=== PATIENT | female | born 1990 | race Hispanic/Latino ===

== ENCOUNTER 2020-02-19 06:37 | Emergency (ER) | payer OTHER, MEDICAID, SELFPAY ==
--- NOTE | ~2020-02-19 | XR_ITS ---
EXAMINATION: XR chest 1V portable DATE: 02/19/2020 07:47 INDICATION: Cough, dyspnea and headaches TECHNIQUE: frontal view of the chest was obtained. COMPARISON: Chest radiograph dated 12/06/2016 FINDINGS: The lungs remain clear with no focal airspace opacities, pulmonary edema, pleural effusion or pneumot horax. The cardiomediastinal silhouette is normal. Visualized bones and soft tissues are unremarkable . IMPRESSION: 1. Normal chest radiograph. Reviewed, dictated and finalized at location A. IMPRESSION: 1. Normal chest radiograph.
--- NOTE | 2020-02-19 06:40 | ED.GENADULT ---
HPI - General Adult General Chief complaint: Upper Respiratory Infection Stated complaint: SOB Time Seen by Provider: 02/19/20 06:40 Source: patient Mode of arrival: ambulatory Limitations: no limitations History of Present Illness HPI narrative: Patient is a 29-year-old female who presents for evaluation of shortness of breath. Patient reports a four-day history of worsening cough, congestion, shortness of breath fever and myalgias. Patient denies any diarrhea or urinary symptoms. No one sick at home. 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 No recent travel. No history of exposures to known coronavirus contacts. Patient reports mild sore throat. Denies earache. No chest pain. Related Data Allergies Allergy/AdvReac Type Severity Reaction Status Date / Time No Known Allergies Allergy Unverified 02/19/20 06:50 Review of Systems Review of Systems: Narrative: CONSTITUTIONAL: Reports fever and chills EYES: Denies visual changes, redness, or discharge. ENT: Reports rhinorrhea, congestion, sore throat CARDIOVASCULAR: Denies chest pain, palpitations, or edema. RESPIRATORY: Reports cough and shortness of breath GASTROINTESTINAL: Denies abdominal pain, nausea, vomiting, or diarrhea. GENITOURINARY: Denies dysuria or hematuria. SKIN: Denies rash or itching. MUSCULOSKELETAL: Denies back pain, joint pain, reports myalgias NEUROLOGIC: Denies headache, numbness, or weakness. [facility] History Surgical History (Updated 02/19/20 @ 08:34 by Beata Murphy MD) Previous section Social History Social History (Updated 02/19/20 @ 08:36 by Beata Murphy MD) Smoking status: Never smoker Alcohol intake: never Substance use: never Gender identity (if verbalized by the patient): Female Exam Narrative: Exam Narrative: GENERAL: Well-appearing, well-nourished, and in no acute distress. HEAD: Normocephalic, atraumatic. EYES: PERRLA and EOMI. ENT: Nares clear, no rhinorrhea or epistaxis. Mucous membranes moist. NECK: Supple. CHEST: No wheezing or rhonchi. No respiratory distress. HEART: Mildly tachycardic, regular rhythm. No murmur heard. Normal peripheral pulses. ABDOMEN: Soft, nontender, nondistended, normal active bowel sounds. EXTREMITIES: Normal range of motion. No edema. SKIN: Warm, dry, no rash. NEURO: No focal deficits. Alert and oriented x3 Course Course Emergency Course: Patient presented for evaluation of fever, cough shortness of breath. At the time of initial assessment, ABCs are intact, vital signs notable for mild tachycardia. No pleuritic chest pain. No respiratory distress. Oxygen saturation is 100%. Patient is afebrile. Chest x-ray shows no evidence of not pneumonia. Laboratory results show no lymphopenia. I do not feel that patient has any PE type symptoms. There is no evidence of fluid overloaded state, no leg pain, calf pain. Wells criteria low risk for PE. Patient mostly with cough and congestion, was mostly worried about bad virus, but given reassuring lab results and chest x-ray, no severe features at this point. I did advise patient that she should be soft quarantined for 14 days as long as she is febrile in order to prevent spread of this virus to other people. She was then discharged home and advised to return should she have worsening symptoms. Vital Signs Vital signs: Vital Signs Temperature 36.7 C 02/19/20 06:48 Pulse Rate 114 H 02/19/20 06:48 Respiratory Rate 21 H 02/19/20 06:48 Blood Pressure 143/75 H 02/19/20 06:48 Pulse Oximetry 100 02/19/20 06:48 Temperature 36.7 C 02/19/20 06:48 Pulse Rate 84 02/19/20 08:03 Respiratory Rate 17 02/19/20 08:03 Blood Pressure 132/67 02/19/20 08:03 Pulse Oximetry 100 02/19/20 08:03 Medical Decision Making Vital Signs Vital Signs: Vital Signs Temperature 36.7 C 02/19/20 06:48 Pulse Rate 114 H 02/19/20 06:48 Respiratory Rat
[2020-02-19 06:48] VITALS: BP 143/75; PULSE 114; RESP 21; TEMP 36.7; O2SAT 100
[2020-02-19 07:05] LABS: Basophils Percent Auto 0.4 % (0.2-1.2); Eosinophils Percent Auto 0.7 % (0-4.4); Hematocrit 39.3 % (37.0-47.0); Hemoglobin 12.9 g/dL (12.0-15.0); Immature Granulocyte Absolute 0.02 K/mm3 (0.00-0.031); Immature Granulocyte Percent A 0.4 % (0-0.5); Lymphocytes Absolute Auto 1.59 K/mm3 (0.9-3.2); Lymphocytes Percent Auto 29.3 % (18.3-44.2); Mean Corpuscular HGB Conc 32.8 g/dl (32-36); Mean Corpuscular Hemoglobin 29.8 pg (26-34); Mean Corpuscular Volume 90.8 fl (80-100); Mean Platelet Volume 10.4 fl (7.4-10.4); Monocytes Absolute Auto 0.4 K/mm3 (0.1-0.6); Neutrophils Absolute Auto 3.4 K/mm3 (1.3-6.7); Neutrophils Percent Auto 62.2 % (45.5-73.1); Platelet Count Result 315 k/mm3 (150-375); Red Blood Count 4.33 M/mm3 (4.2-5.4); White Blood Count 5.4 K/mm3 (4.5-10.0)
[2020-02-19 07:14] LABS: INR 0.9; Prothrombin Time 12.3 Seconds (11.1-14.7)
[2020-02-19 07:15] LABS: Partial Thromboplastin Time 30.2 SECONDS (22.3-36.8)
[2020-02-19 07:26] LABS: Alanine Aminotransferase 13 U/L (4-35); Albumin Level 4.2 g/dL (3.5-5.1); Alkaline Phosphatase 55 U/L (38-126); Aspartate Amino Transferase 19 U/L (14-36); Bilirubin,Total 0.4 mg/dL (0.2-1.3); Blood Urea Nitrogen 13 mg/dL (7-17); CRP < 0.5 mg/dL (<1.0); Calcium 8.9 mg/dL (8.4-10.2); Carbon Dioxide 24 mmol/L (22-30); Chloride 105 mmol/L (98-107); Estimated Glomerular Filt Rate > 60; Glucose 92 mg/dL (65-105); Potassium 3.5 mmol/L (3.4-5.0); Sodium 139 mmol/L (137-145)
[2020-02-19 07:27] LABS: Base Excess ABG 2.2 mEq/l (+/-2.0); Carboxyhemoglobin 0.5 % THb (0-2.0); Fractional Inspired Oxygen 21 %; HCO3 ABG 26.9 mEq/l (22.0-26.0); Methemoglobin ABG 0.2 %THb (0-1.5); Oxygen Content ABG 17.6 %vol (16.0-22.0); PCO2 ABG 42.2 mmHg (35.0-45.0); PO2 ABG 89.2 mmHg (80.0-100.0); PO2 FiO2 Ratio Arterial Blood 4.25 %; Reduced Hemoglobin 3.3 %THb (0-5.0); pH ABG 7.422 (7.350-7.450)
[2020-02-19 07:28] LABS: Device ROOM AIR; Site Drawn LEFT BRACHIAL
[2020-02-19 07:48] LABS: Troponin I < 0.012 ng/mL (0.000-0.034)
[2020-02-19] MEDS: ACETAMINOPHEN 500 MG TABLET 1000 MG PO (07:49)
[2020-02-19] MEDS: SODIUM CHLORIDE 0.9% IV 1,000 ML 999 ML IV CONT (07:50)
--- NOTE | 2020-02-19 08:02 | PC.NURSE ---
Assumed care of pt. Pt is alert and upright on stretcher.
[2020-02-19 08:03] VITALS: BP 132/67; PULSE 84; RESP 17; O2SAT 100
[2020-02-19 08:55] VITALS: BP 112/68; PULSE 82; RESP 19; O2SAT 100
== END 2020-02-19 08:56 | disposition home or self-care (01) ==
PROVIDERS: Emergency Provider Emergency Medicine
DX: J06.9 Acute upper respiratory infection, unspecified (principal)
CPT/HCPCS: 36415; 36600; 71045; 80053; 81025; 82375; 82805; 83050; 84484; 85025; 85610; 85730; 86140; 87081; 87804; 87880; 96360; 99284; A9270; J7030

== ENCOUNTER 2021-04-14 16:16 | Outpatient (CLI) | payer BC, OTHER, SELFPAY ==
[2021-04-14 17:19] LABS: Basophils Percent Auto 0.3 % (0.2-1.2); Eosinophils Percent Auto 0.3 % (0-4.4); Hematocrit 34.6 % (37.0-47.0); Hemoglobin 11.1 g/dL (12.0-15.0); Immature Granulocyte Absolute 0.02 K/mm3 (0.00-0.031); Immature Granulocyte Percent A 0.2 % (0-0.5); Lymphocytes Absolute Auto 2.43 K/mm3 (0.9-3.2); Lymphocytes Percent Auto 24.9 % (18.3-44.2); Mean Corpuscular HGB Conc 32.1 g/dl (32-36); Mean Corpuscular Hemoglobin 28.1 pg (26-34); Mean Corpuscular Volume 87.6 fl (80-100); Mean Platelet Volume 10.2 fl (7.4-10.4); Monocytes Absolute Auto 0.6 K/mm3 (0.1-0.6); Monocytes Percent Auto 6.1 % (2.6-8.5); Neutrophils Absolute Auto 6.7 K/mm3 (1.3-6.7); Neutrophils Percent Auto 68.2 % (45.5-73.1); Platelet Count Result 353 k/mm3 (150-375); Red Blood Count 3.95 M/mm3 (4.2-5.4); Red Cell Distribution Width 13.9 % (11.5-14.5); White Blood Count 9.8 K/mm3 (4.5-10.0)
[2021-04-14 18:09] LABS: HIV 1/2 Ab P24 Ag Result Negative (Negative)
[2021-04-14 18:33] LABS: Iron 26 ug/dL (37-170)
[2021-04-14 18:45] LABS: Percent Iron Saturation 6 % (20-50)
[2021-04-14 21:03] LABS: Hepatitis B Surface Antigen Negative (Negative)
[2021-04-14 21:09] LABS: HAV RESULT Negative (Negative); Hepatitis B Core IgM Result Negative (Negative)
[2021-04-14 21:21] LABS: Hepatitis C Virus Antibody Negative (Negative)
[2021-04-15 07:29] LABS: Rapid Plasma Reagin Non-Reactive (NonReactive)
[2021-04-17 08:55] LABS: FSH 8.1 mIU/mL (***); LH 7.5 mIU/mL (***); Progesterone 6.7 ng/mL (***); Prolactin 6.9 ng/mL (***)
[2021-04-19 17:41] LABS: Estradiol, Ultrasensitive 87 pg/mL
== END 2021-04-14 16:17 | disposition home or self-care (01) ==
LOC: ANHLAB 16:21
PROVIDERS: Visit Provider Obstetrics & Gynecology
DX: N93.9 Abnormal uterine and vaginal bleeding, unspecified (principal); Z11.3 Encounter for screening for infections with a predominantly sexual mode of transmission
CPT/HCPCS: 36415; 80074; 82670; 83001; 83002; 83540; 83550; 84144; 84146; 84443; 85025; 86592; 86695; 86696; 86703; G0432

== ENCOUNTER 2021-10-24 12:43 | Emergency (ER) | payer BC, OTHER, SELFPAY ==
[2021-10-24 12:48] VITALS: BP 125/71; PULSE 104; RESP 16; TEMP 36.7; O2SAT 100
--- NOTE | 2021-10-24 13:02 | ED.ABDPAIN ---
HPI - Abdominal Pain General Chief Complaint: Abdominal Pain Stated Complaint: abd pain Time Seen by Provider: 10/24/21 12:59 Source: patient Mode of arrival: ambulatory Limitations: no limitations History of Present Illness HPI narrative: Patient presents with lower abdominal pain radiating to lower back started 3 days ago, denying any aggravating or relieving factors. Patient denies fever, chills, nausea, vomiting. Patient is fully vaccinated for COVID-19. Last menstrual period September 15, 2021 patient is 3, para 2, 0 Related Data Allergies Allergy/AdvReac Type Severity Reaction Status Date / Time No Known Allergies Allergy Unverified 02/19/20 06:50 Review of Systems Review of Systems: CONSTITUTIONAL: Denies fever, chills, or sweats. EYES: Denies visual changes, redness, or discharge. ENT: Denies rhinorrhea, congestion, sore throat, or otalgia. CARDIOVASCULAR: Denies chest pain, palpitations, or edema. RESPIRATORY: Denies cough or dyspnea. GASTROINTESTINAL: Denies abdominal pain, nausea, vomiting, or diarrhea. GENITOURINARY: Denies dysuria or hematuria. SKIN: Denies rash or itching. MUSCULOSKELETAL: Denies back pain, joint pain, or myalgia. NEUROLOGIC: Denies headache, numbness, or weakness. PSYCHIATRIC: Denies anxiety or depression. [facility] Surgical History Surgical History Previous section Social History Social History Smoking status: Never smoker Alcohol intake: never Substance use: never Gender identity (if verbalized by the patient): Female Exam Narrative: General appearance: Well-developed, well-nourished Skin: Normal color Head: Normocephalic, nontraumatic Eyes: Clear conjunctiva ENT: Oropharynx normal, ears normal, nose normal Neck: Supple, nontender Chest and respiratory: Airway patent, no respiratory distress, no accessory muscle use Heart: Regular rate/rhythm Abdomen: Soft, slight tenderness suprapubic area, no organomegaly, quiet bowel sounds Vascular: Normal peripheral pulses, normal capillary refill. 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 Labs ordered. Differential Diagnosis Differential diagnosis: Likely abdominal pain, acute appendicitis, constipation, diverticulitis and other (Urinary tract infection, ) Lab Data Result diagrams: 10/24/21 13:14 10/24/21 13:13 Labs: Lab Results 10/24/21 10/24/21 10/24/21 Range/Units 13:13 13:13 13:14 WBC 8.2 (4.5-10.0) K/mm3 RBC 3.72 L (4.2-5.4) M/mm3 Hgb 10.6 L (12.0-15.0) g/dL Hct 32.4 L (37.0-47.0) % MCV 87.1 (80-100) fl MCH 28.5 (26-34) pg MCHC 32.7 (32-36) g/dl RDW 15.2 H (11.5-14.5) % Plt Count 383 H (150-375) k/mm3 MPV 10.1 (7.4-10.4) fl Immature Gran % (Auto) 0.2 (0-0.5) % Neut % (Auto) 61.4 (45.5-73.1) % Lymph % (Auto) 30.5 (18.3-44.2) % Alexander % (Auto) 7.2 (2.6-8.5) % Eos %
[2021-10-24] MEDS: SODIUM CHLORIDE 0.9% IV 1,000 ML 999 ML IV CONT (13:19)
[2021-10-24] MEDS: ONDANSETRON INJ 4 MG/2 ML VIAL IV PUSH (13:19)
[2021-10-24 13:28] LABS: Basophils Percent Auto 0.5 % (0.2-1.2); Eosinophils Percent Auto 0.2 % (0-4.4); Hematocrit 32.4 % (37.0-47.0); Hemoglobin 10.6 g/dL (12.0-15.0); Immature Granulocyte Absolute 0.02 K/mm3 (0.00-0.031); Immature Granulocyte Percent A 0.2 % (0-0.5); Lymphocytes Absolute Auto 2.49 K/mm3 (0.9-3.2); Lymphocytes Percent Auto 30.5 % (18.3-44.2); Mean Corpuscular HGB Conc 32.7 g/dl (32-36); Mean Corpuscular Hemoglobin 28.5 pg (26-34); Mean Corpuscular Volume 87.1 fl (80-100); Mean Platelet Volume 10.1 fl (7.4-10.4); Monocytes Absolute Auto 0.6 K/mm3 (0.1-0.6); Monocytes Percent Auto 7.2 % (2.6-8.5); Neutrophils Percent Auto 61.4 % (45.5-73.1); Platelet Count Result 383 k/mm3 (150-375); Red Blood Count 3.72 M/mm3 (4.2-5.4); Red Cell Distribution Width 15.2 % (11.5-14.5); White Blood Count 8.2 K/mm3 (4.5-10.0)
[2021-10-24 13:37] LABS: Alanine Aminotransferase 14 U/L (4-35); Albumin Level 4.1 g/dL (3.5-5.1); Alkaline Phosphatase 60 U/L (38-126); Anion Gap 4 mmol/L (8-16); Aspartate Amino Transferase 19 U/L (14-36); Bilirubin,Total 0.2 mg/dL (0.2-1.3); Blood Urea Nitrogen 11 mg/dL (7-17); Calcium 9.1 mg/dL (8.4-10.2); Carbon Dioxide 27 mmol/L (22-30); Chloride 103 mmol/L (98-107); Estimated CRCL calculation 92 ml/min; Estimated Glomerular Filt Rate > 60; Glucose 113 mg/dL (65-110); Lipase 95 U/L (23-300); Potassium 3.2 mmol/L (3.4-5.0); Sodium 134 mmol/L (137-145)
[2021-10-24 13:38] LABS: Add Urine Microscopic? YES; Appearance Urine Cloudy (Clear); Bilirubin Urine Negative (Negative); Blood Urine 1+ (Negative); Color Urine Yellow (Yellow); Glucose Urine UA Negative (Negative); Ketones Urine Negative (Negative); Leukocyte Esterase Ur Negative LEU/UL (Negative); Mucus Urine Few /lpf; Nitrate Urine Negative (Negative); Protein Urine Negative (Negative); RBC Urine 0-2 /hpf (0-2); Specific Grav Ur 1.027 (1.001-1.035); Squamous Epithelial Cell Urine Many /hpf (Few); Urobilinogen Urine Negative mg/dL (<2.0); WBC Urine 0-3 /hpf
[2021-10-24 14:35] VITALS: BP 125/81; PULSE 96; RESP 15; O2SAT 100
[2021-10-24 14:41] LABS: Serum Qual hCG Positive
[2021-10-24 14:42] LABS: SPREG INTERNAL CONTROL Positive
== END 2021-10-24 14:43 | disposition home or self-care (01) ==
PROVIDERS: Emergency Provider Emergency Medicine
DX: O26.891 Other specified pregnancy related conditions, first trimester (principal); R10.30 Lower abdominal pain, unspecified; O99.281 Endocrine, nutritional and metabolic diseases complicating pregnancy, first trimester; E87.6 Hypokalemia; Z3A.01 Less than 8 weeks gestation of pregnancy
CPT/HCPCS: 36415; 80053; 81001; 81025; 83690; 84703; 85025; 96361; 96365; 96375; 99284; J0131; J2405; J7030

== ENCOUNTER 2022-01-05 07:20 | Emergency (ER) | payer BC, OTHER, SELFPAY ==
--- NOTE | 2022-01-05 07:28 | ED.ABDPAIN ---
HPI - Abdominal Pain General Chief Complaint: Abdominal Pain Stated Complaint: abdominal pain, 16 weeks Time Seen by Provider: 01/05/22 07:27 Source: patient Mode of arrival: ambulatory Limitations: no limitations History of Present Illness HPI narrative: Patient is a 31 years old white female, 16 weeks , 4, para 2, 1 presents with mid abdominal pressure type feeling, worse on exertion, better laying down still. Patient denies any fever, chills, nausea, vomiting, diarrhea, constipation, urinary symptoms. Patient denies history of abdominal surgery, smoking, drinking or using drugs. Last [employer] exam was 1 month ago. Patient also denies any vaginal bleeding or discharge. Related Data Home Medications Medication Instructions Recorded Confirmed doxylamine succinate 25 mg tablet 25 mg PO QHS 12/15/21 12/15/21 ondansetron 4 mg disintegrating 4 mg PO Q6H PRN 12/15/21 12/15/21 tablet ondansetron HCl 4 mg tablet 4 mg PO Q8H 12/15/21 12/15/21 pyridoxine (vitamin B6) 25 mg 25 mg PO TID tablet 12/15/21 12/15/21 tablet Allergies Allergy/AdvReac Type Severity Reaction Status Date / Time No Known Allergies Allergy Verified 01/05/22 07:50 Review of Systems Review of Systems: CONSTITUTIONAL: Denies fever, chills, or sweats. EYES: Denies visual changes, redness, or discharge. ENT: Denies rhinorrhea, congestion, sore throat, or otalgia. CARDIOVASCULAR: Denies chest pain, palpitations, or edema. RESPIRATORY: Denies cough or dyspnea. GASTROINTESTINAL: Denies abdominal pain, nausea, vomiting, or diarrhea. GENITOURINARY: Denies dysuria or hematuria. SKIN: Denies rash or itching. MUSCULOSKELETAL: Denies back pain, joint pain, or myalgia. NEUROLOGIC: Denies headache, numbness, or weakness. PSYCHIATRIC: Denies anxiety or depression. [facility] Surgical History Surgical History Previous section Social History Social History Smoking status: Never smoker Alcohol intake: never Substance use: never Gender identity (if verbalized by the patient): Female Exam Narrative: General appearance: Well-developed, well-nourished Skin: Normal color Head: Normocephalic, nontraumatic Eyes: Clear conjunctiva ENT: Oropharynx normal, ears normal, nose normal Neck: Supple, nontender Chest and respiratory: Airway patent, no respiratory distress, no accessory muscle use Heart: Regular rate/rhythm Abdomen: Soft, diffuse abdominal tenderness, quiet bowel sounds, no guarding or rebound Vascular: Normal peripheral pulses, normal capillary refill. 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 Lala Ravi for 3 days Date: 01/05/22 Time: 09:56 Vital Signs Vital signs: Vital Signs Temperature 36.2 C L 01/05/22 07:32 Pulse Rate 83 01/05/22 07:32 Respiratory Rate 16 01/05/22 07:32 Blood Pressure 121/53 L 01/05/22 07:32 Pulse Oximetry 100 01/05/22 07:32 Temperature 36.2 C L 01/05/22 07:32 Pulse Rate 83 01/05/22 07:32 Respiratory Rate 16 01/05/22 07:32 Blood Pressure 121/53 L 01/05/22 07:32 Pulse Oximetry 100 01/05/22 07:32 MDM - Abdominal Pain MDM Narrative Medical decision making narrative: Abdominal pain with .
[2022-01-05 07:32] VITALS: BP 121/53; PULSE 83; RESP 16; TEMP 36.2; O2SAT 100
[2022-01-05 07:51] LABS: Basophils Percent Auto 0.1 % (0.2-1.2); Eosinophils Percent Auto 0.1 % (0-4.4); Hematocrit 34.4 % (37.0-47.0); Hemoglobin 11.5 g/dL (12.0-15.0); Immature Granulocyte Absolute 0.03 K/mm3 (0.00-0.031); Immature Granulocyte Percent A 0.3 % (0-0.5); Lymphocytes Absolute Auto 1.67 K/mm3 (0.9-3.2); Lymphocytes Percent Auto 19.2 % (18.3-44.2); Mean Corpuscular HGB Conc 33.4 g/dl (32-36); Mean Corpuscular Hemoglobin 28.6 pg (26-34); Mean Corpuscular Volume 85.6 fl (80-100); Mean Platelet Volume 10.6 fl (7.4-10.4); Monocytes Absolute Auto 0.4 K/mm3 (0.1-0.6); Monocytes Percent Auto 5.1 % (2.6-8.5); Neutrophils Absolute Auto 6.5 K/mm3 (1.3-6.7); Neutrophils Percent Auto 75.2 % (45.5-73.1); Platelet Count Result 332 k/mm3 (150-375); Red Blood Count 4.02 M/mm3 (4.2-5.4); Red Cell Distribution Width 15.9 % (11.5-14.5); White Blood Count 8.7 K/mm3 (4.5-10.0)
[2022-01-05 07:57] LABS: Add Urine Microscopic? YES; Appearance Urine Clear (Clear); Bacteria Urine Trace /hpf; Bilirubin Urine Negative (Negative); Blood Urine Negative (Negative); Color Urine Yellow (Yellow); Glucose Urine UA Negative (Negative); Ketones Urine Trace mg/dL (Negative); Leukocyte Esterase Ur Negative LEU/UL (Negative); Mucus Urine Rare /lpf; Nitrate Urine Negative (Negative); Protein Urine Negative (Negative); RBC Urine 0-2 /hpf (0-2); Specific Grav Ur 1.019 (1.001-1.035); Squamous Epithelial Cell Urine Occasional /hpf (Few); Urobilinogen Urine Negative mg/dL (<2.0); WBC Urine 0-3 /hpf
[2022-01-05 08:01] LABS: Alanine Aminotransferase 11 U/L (4-35); Alkaline Phosphatase 78 U/L (38-126); Anion Gap 5 mmol/L (8-16); Aspartate Amino Transferase 20 U/L (14-36); Bilirubin,Total 0.3 mg/dL (0.2-1.3); Blood Urea Nitrogen 7 mg/dL (7-17); Calcium 9.2 mg/dL (8.4-10.2); Carbon Dioxide 22 mmol/L (22-30); Chloride 105 mmol/L (98-107); Estimated CRCL calculation 126 ml/min; Estimated Glomerular Filt Rate > 60; Glucose 110 mg/dL (65-110); Lipase 68 U/L (23-300); Potassium 3.6 mmol/L (3.4-5.0); Sodium 132 mmol/L (137-145)
[2022-01-05] MEDS: BELLADONNA ALK/PHENOB ELIX 10 ML, MAG HYDROX/ALUMINUM HYD/SIMETH 30 ML, LIDOCAINE HCL 2... PO (09:32)
[2022-01-05 10:30] VITALS: BP 105/62; PULSE 85; RESP 16; O2SAT 100
== END 2022-01-05 10:30 | disposition home or self-care (01) ==
PROVIDERS: Emergency Provider Emergency Medicine
DX: N89.8 Other specified noninflammatory disorders of vagina (principal); O26.92 Pregnancy related conditions, unspecified, second trimester; Z3A.16 16 weeks gestation of pregnancy
CPT/HCPCS: 36415; 80053; 81001; 83690; 85025; 99284; A9270

== ENCOUNTER 2022-02-05 11:14 | Outpatient (CLI) | payer BC, OTHER, SELFPAY ==
[2022-02-05 12:42] LABS: Alanine Aminotransferase 13 U/L (4-35); Albumin Level 3.4 g/dL (3.5-5.1); Alkaline Phosphatase 74 U/L (38-126); Anion Gap 7 mmol/L (8-16); Aspartate Amino Transferase 19 U/L (14-36); Bilirubin,Total 0.2 mg/dL (0.2-1.3); Blood Urea Nitrogen 5 mg/dL (7-17); Calcium 8.6 mg/dL (8.4-10.2); Carbon Dioxide 22 mmol/L (22-30); Chloride 105 mmol/L (98-107); Estimated Glomerular Filt Rate > 60; Glucose 123 mg/dL (65-110); Lipase 59 U/L (23-300); Potassium 3.4 mmol/L (3.4-5.0); Sodium 134 mmol/L (137-145)
[2022-02-05 13:24] LABS: HIV 1/2 Ab P24 Ag Result Negative (Negative)
[2022-02-05 13:36] LABS: Hepatitis B Surface Antigen Negative (Negative)
[2022-02-07 07:40] LABS: Rapid Plasma Reagin Non-Reactive (NonReactive)
[2022-02-07 11:15] LABS: Rubella IgG Antibody 10.1 IU/ML
== END 2022-02-05 11:15 | disposition home or self-care (01) ==
PROVIDERS: Visit Provider Obstetrics & Gynecology
DX: O26.899 Other specified pregnancy related conditions, unspecified trimester (principal); R10.9 Unspecified abdominal pain; Z3A.00 Weeks of gestation of pregnancy not specified; N92.5 Other specified irregular menstruation; Z11.3 Encounter for screening for infections with a predominantly sexual mode of transmission
CPT/HCPCS: 36415; 80053; 83690; 84702; 86592; 86644; 86703; 86747; 86762; 86787; 86850; 86880; 86900; 86901; 86902; 87086; 87340; G0432

== ENCOUNTER 2022-02-07 16:00 | Outpatient (CLI) | payer BC, OTHER, SELFPAY ==
[2022-02-07 16:17] LABS: Hematocrit 31.8 % (37.0-47.0); Hemoglobin 10.4 g/dL (12.0-15.0); Mean Corpuscular HGB Conc 32.7 g/dl (32-36); Mean Corpuscular Volume 91.6 fl (80-100); Mean Platelet Volume 10.1 fl (7.4-10.4); Platelet Count Result 351 k/mm3 (150-375); Red Blood Count 3.47 M/mm3 (4.2-5.4); Red Cell Distribution Width 17.4 % (11.5-14.5); White Blood Count 8.3 K/mm3 (4.5-10.0)
== END 2022-02-07 16:01 | disposition home or self-care (01) ==
LOC: ANHLAB 16:03
PROVIDERS: Visit Provider Obstetrics & Gynecology
DX: Z11.3 Encounter for screening for infections with a predominantly sexual mode of transmission (principal); N92.5 Other specified irregular menstruation
CPT/HCPCS: 36415; 85027; 87491; 87591

== ENCOUNTER 2022-02-11 08:38 | Outpatient (CLI) | payer BC, OTHER, SELFPAY ==
[2022-02-11 10:06] LABS: Hemoglobin A1C 4.9 % (<5.7)
== END 2022-02-11 08:39 | disposition home or self-care (01) ==
LOC: ANHLAB 08:40
PROVIDERS: Visit Provider Obstetrics & Gynecology
DX: R73.09 Other abnormal glucose (principal); R76.0 Raised antibody titer
CPT/HCPCS: 36415; 83036; 86850; 86870; 86880; 86886; 86900; 86901; 86902; 86905; 86972

== ENCOUNTER 2022-03-12 11:29 | Outpatient (CLI) | payer BC, OTHER, SELFPAY | END 2022-03-12 11:30 | disposition home or self-care (01) | LOC: ANHLAB 11:30 | PROVIDERS: Visit Provider Obstetrics & Gynecology | DX: R89.9 Unspecified abnormal finding in specimens from other organs, systems and tissues (principal) | CPT/HCPCS: 36415; 86850; 86870; 86880; 86886; 86900; 86901; 86902; 86905; 86970; 86971 ==

== ENCOUNTER 2022-03-28 17:56 | Observation (INO) | payer OTHER, SELFPAY ==
[2022-03-28] VITALS (11 sets, daily range): BP systolic 107–111; BP diastolic 59; PULSE 109–128; TEMP 36; O2SAT 97–100; BMI 31.1
[2022-03-28 19:32] LABS: Alanine Aminotransferase 18 U/L (4-35); Alkaline Phosphatase 109 U/L (38-126); Anion Gap 7 mmol/L (8-16); Aspartate Amino Transferase 22 U/L (14-36); Bilirubin,Total < 0.1 mg/dL (0.2-1.3); Blood Urea Nitrogen 3 mg/dL (7-17); Calcium 7.6 mg/dL (8.4-10.2); Carbon Dioxide 20 mmol/L (22-30); Chloride 104 mmol/L (98-107); Estimated Glomerular Filt Rate > 60; Glucose 110 mg/dL (65-110); Potassium 2.9 mmol/L (3.4-5.0); Sodium 131 mmol/L (137-145)
[2022-03-28] MEDS: FAMOTIDINE 20 MG/2 ML VIAL IV PUSH (19:38)
[2022-03-28] MEDS: LACTATED RINGERS 1,000 ML 999 ML IV CONT (19:38)
[2022-03-28] MEDS: ONDANSETRON INJ 4 MG/2 ML VIAL IV PUSH (19:38)
[2022-03-28 19:51] LABS: Appearance Urine Cloudy (Clear); Bilirubin Urine Negative (Negative); Blood Urine Negative (Negative); Color Urine Yellow (Yellow); Glucose Urine UA Negative (Negative); Ketones Urine 4+ mg/dL (Negative); Leukocyte Esterase Ur Negative LEU/UL (Negative); Nitrate Urine Negative (Negative); Protein Urine Negative (Negative); Specific Grav Ur >= 1.030 (1.001-1.035); Urobilinogen Urine 0.2 mg/dL (<2.0); pH Urine 5.5 (5.0-9.0)
[2022-03-28 20:06] LABS: Bacteria Urine Trace /hpf; Mucus Urine Few /lpf; Squamous Epithelial Cell Urine Moderate /hpf (Few)
[2022-03-28 20:11] LABS: Add Urine Microscopic? YES
[2022-03-28] MEDS: ACETAMINOPHEN 500 MG TABLET 1000 MG PO (20:32)
[2022-03-28] MEDS: KCL 40 MEQ/0.9% SOD CHL 1,000 ML 250 ML IV CONT (21:30)
[2022-03-28 21:44] LABS: Influenza A QL RT-PCR Negative (Negative); Influenza B QL RT-PCR Negative (Negative); SARS-CoV-2 RNA PCR Negative
[2022-03-29 02:02] VITALS: BP 98/73; PULSE 121
--- NOTE | 2022-03-29 02:05 | PC.NURSE ---
Patient states that she has had at least stools in the last hour. Discussed staying until morning, patient agreeable.
[2022-03-29] MEDS: DEXTROSE 5%/LACTATED RINGERS 1,000 ML 150 ML IV CONT ×2 (02:13→09:42)
--- NOTE | 2022-03-29 03:37 | PC.NURSE ---
Dr Palma notified that patient is still having loose stools and still having pain. Will see patient in AM.
[2022-03-29] MEDS: ACETAMINOPHEN 500 MG TABLET 1000 MG PO ×2 (04:18→11:59)
[2022-03-29 06:37] VITALS: BP 93/48; PULSE 96
--- NOTE | 2022-03-29 06:46 | WPDHPUPDATE1 ---
History and Physical Update Update Date/Time: 03/29/22 06:46 31yo @ 27.1wks admitted overnight w/ dehydration and diarrhea; now s/p pepcid, zofran, and IV fluid hydration (+ 40meq of KCl) and feeling better. Flu/COVID negative; plan to advance diet and discharge home. History and Physical has been reviewed, including an updated exam of the patient. There are NO changes in the patient's condition. Risks, benefits, and alternatives have been discussed and questions answered. Patient agrees to proceed with procedure.
--- NOTE | 2022-03-29 07:13 | PC.NURSE ---
0705--Dr. Palma at bedside. Plan of care discussed.
[2022-03-29] MEDS: FAMOTIDINE 20 MG/2 ML VIAL IV PUSH (07:32)
[2022-03-29] MEDS: ONDANSETRON INJ 4 MG/2 ML VIAL IV PUSH (07:32)
--- NOTE | 2022-03-29 12:35 | PC.NURSE ---
1225--Dr. Palma on unit. DC orders given. IV DC'd WNL.
--- NOTE | 2022-03-31 13:48 | PM.OBTRLD ---
OB - Triage/Final Diagnosis Visit Information Comments/Additional reasons for admission: I have assessed the risk for this patient, Nikki Schuster, and determined that she would benefit from observation care. Evaluation Laboratory results: Laboratory Tests 03/28/22 03/28/22 03/28/22 19:02 19:43 20:58 Sodium 131 L Potassium 2.9 L Chloride 104 Carbon Dioxide 20 L Anion Gap 7 L BUN 3 L Creatinine 0.50 L Estim Creat Clear Calc Not Reportable Estimated GFR > 60 Glucose 110 Calcium 7.6 L Total Bilirubin < 0.1 L AST 22 ALT 18 Alkaline Phosphatase 109 Total Protein 6.0 L Albumin 3.0 L Urine Color Yellow Urine Appearance Cloudy H Urine pH 5.5 Ur Specific [place] >= 1.030 Urine Protein Negative Urine Glucose (UA) Negative Urine Ketones 4+ H Ur Blood (Man) Negative Urine Nitrate Negative Urine Bilirubin Negative Urine Urobilinogen 0.2 Leukocyte Esterase Rfl Negative Urine RBC 3-5 H Urine WBC 7-9 H Ur Squamous Epith Cells Moderate H Urine Bacteria Trace Urine Mucus Few H Influenza A (RT-PCR) Negative Influenza B (RT-PCR) Negative SARS-CoV-2 RNA (RT-PCR) Negative 03/28/22 20:58 Sodium Potassium Chloride Carbon Dioxide Anion Gap BUN Creatinine Estim Creat Clear Calc Estimated GFR Glucose Calcium Total Bilirubin AST ALT Alkaline Phosphatase Total Protein Albumin Urine Color Urine Appearance Urine pH Ur Specific [place] Urine Protein Urine Glucose (UA) Urine Ketones Ur Blood (Man) Urine Nitrate Urine Bilirubin Urine Urobilinogen Leukocyte Esterase Rfl Urine RBC Urine WBC Ur Squamous Epith Cells Urine Bacteria Urine Mucus Influenza A (RT-PCR) Cancelled Influenza B (RT-PCR) Cancelled SARS-CoV-2 RNA (RT-PCR) Final Diagnosis (1) Gastroenteritis: Code(s): K52.9 - Noninfective gastroenteritis and colitis, unspecified Status: Acute
== END 2022-03-29 12:50 | disposition home or self-care (01) ==
PROVIDERS: Admitting Provider Obstetrics & Gynecology; Visit Provider Obstetrics & Gynecology
DX: O26.892 Other specified pregnancy related conditions, second trimester (principal); E86.0 Dehydration; Z3A.27 27 weeks gestation of pregnancy; R19.7 Diarrhea, unspecified; Z20.822 Contact with and (suspected) exposure to COVID-19
CPT/HCPCS: 36415; 80053; 81001; 87045; 87086; 87427; 87502; 96361; 96374; 96375; A9270; C9803; G0378; G0379; J2405; J7120; J7121; U0003; U0005

== ENCOUNTER 2022-04-02 11:22 | Outpatient (CLI) | payer BC, OTHER, SELFPAY ==
[2022-04-02 13:16] LABS: Basophils Percent Auto 0.4 % (0.2-1.2); Eosinophils Percent Auto 0.1 % (0-4.4); Hematocrit 31.4 % (37.0-47.0); Immature Granulocyte Absolute 0.04 K/mm3 (0.00-0.031); Immature Granulocyte Percent A 0.6 % (0-0.5); Lymphocytes Absolute Auto 1.11 K/mm3 (0.9-3.2); Lymphocytes Percent Auto 15.3 % (18.3-44.2); Mean Corpuscular HGB Conc 31.8 g/dl (32-36); Mean Corpuscular Volume 94.3 fl (80-100); Monocytes Absolute Auto 0.2 K/mm3 (0.1-0.6); Neutrophils Absolute Auto 5.8 K/mm3 (1.3-6.7); Neutrophils Percent Auto 80.6 % (45.5-73.1); Platelet Count Result 317 k/mm3 (150-375); Red Blood Count 3.33 M/mm3 (4.2-5.4); Red Cell Distribution Width 14.7 % (11.5-14.5); White Blood Count 7.3 K/mm3 (4.5-10.0)
[2022-04-02 13:29] LABS: Glucose 1 Hour PP 50gm Dose 147 mg/dL
[2022-04-02 14:08] LABS: HIV 1/2 Ab P24 Ag Result Negative (Negative)
[2022-04-02 14:31] LABS: Atypical Lymphocytes Present; Platelet Estimate Adequate (Adequate)
== END 2022-04-02 11:23 | disposition home or self-care (01) ==
LOC: ANHLAB 11:25
PROVIDERS: Visit Provider Obstetrics & Gynecology
DX: Z34.90 Encounter for supervision of normal pregnancy, unspecified, unspecified trimester (principal)
CPT/HCPCS: 36415; 82947; 85025; 86703; G0432

== ENCOUNTER 2022-04-08 07:38 | Outpatient (CLI) | payer BC, OTHER, SELFPAY ==
[2022-04-08 08:04] LABS: Glucose Fasting Gestational 85 mg/dL (>/=95)
[2022-04-08 09:37] LABS: Glucose 1 Hour Gest 122 mg/dL (>/=180)
[2022-04-08 10:29] LABS: Glucose 2 Hour Gest 140 mg/dL (>/= 155)
[2022-04-08 11:51] LABS: Glucose 3 Hour Gest 115 mg/dL (>/=140)
== END 2022-04-08 07:39 | disposition home or self-care (01) ==
LOC: ANHLAB 07:39
PROVIDERS: Visit Provider Obstetrics & Gynecology
DX: O36.0930 Maternal care for other rhesus isoimmunization, third trimester, not applicable or unspecified (principal); R73.09 Other abnormal glucose; Z3A.00 Weeks of gestation of pregnancy not specified
CPT/HCPCS: 36415; 82951; 82952; 86850; 86870; 86880; 86886; 86900; 86901; 86902

== ENCOUNTER 2022-05-16 09:02 | Outpatient (CLI) | payer BC, OTHER, SELFPAY ==
[2022-05-16 09:32] VITALS: BP 109/60; PULSE 89
[2022-05-16 09:42] LABS: Appearance Urine Clear (Clear); Bilirubin Urine Negative (Negative); Color Urine Yellow (Yellow); Glucose Urine UA Negative (Negative); Ketones Urine Negative (Negative); Leukocyte Esterase Ur Negative LEU/UL (Negative); Nitrate Urine Negative (Negative); Protein Urine Negative (Negative); Specific Grav Ur 1.015 (1.001-1.035); Urobilinogen Urine 0.2 mg/dL (<2.0)
[2022-05-16 09:45] LABS: Bacteria Urine Trace /hpf; Mucus Urine Rare /lpf; RBC Urine 0-2 /hpf (0-2); Squamous Epithelial Cell Urine Rare /hpf (Few); WBC Urine 0-3 /hpf
[2022-05-16 09:46] LABS: Add Urine Microscopic? YES; Blood Urine Trace-Intact (Negative)
[2022-05-16 10:05] VITALS: BP 109/60; PULSE 91
== END 2022-05-16 10:10 | disposition home or self-care (01) ==
LOC: ANHOBOP 09:10 → ANHOBPP 09:10
PROVIDERS: Visit Provider Obstetrics & Gynecology
DX: O42.90 Premature rupture of membranes, unspecified as to length of time between rupture and onset of labor, unspecified weeks of gestation (principal); Z3A.00 Weeks of gestation of pregnancy not specified
CPT/HCPCS: 59025; 81001; 84112; 99199

== ENCOUNTER 2022-05-23 14:44 | Outpatient (RCR) | payer BC, OTHER, SELFPAY | END 2022-08-21 23:59 | disposition home or self-care (01) | LOC: ANHLAB 14:44 | PROVIDERS: Visit Provider Obstetrics & Gynecology | DX: O36.0930 Maternal care for other rhesus isoimmunization, third trimester, not applicable or unspecified (principal); Z3A.00 Weeks of gestation of pregnancy not specified | CPT/HCPCS: 36415; 86870; 86886; 86900; 86901 ==

== ENCOUNTER 2022-06-15 15:36 | Inpatient (IN) | payer BC, OTHER, SELFPAY ==
[2022-06-15] VITALS (64 sets, daily range): BP systolic 62–126; BP diastolic 40–88; PULSE 38–124; RESP 14–18; TEMP 36.2–36.3; O2SAT 90–100; BMI 32.2
--- NOTE | 2022-06-15 15:36 | LDADM ---
This patient, Nikki Schuster, was admitted to Labor/Delivery/Recovery 120 on 06/15/22 at 15:36. Plans for labor, pain management and were discussed with patient. Patient/family oriented to hospital policies and general routines including ID bracelet, bed and alarms, visiting hours, pain management, procedures, bathroom and other care routines, personal items, smoking policy, room service/diet and guest tray routines, infant security routines, and visiting hours. Patient/Family are encouraged to report perceived risks to care and to ask questions if they do not understand what they are told or what they should do. See [facility]BI[facility] for further documentation.
[2022-06-15] MEDS: LACTATED RINGERS 1,000 ML 125 ML IV CONT ×3 (16:54→18:24)
[2022-06-15 17:03] LABS: Basophils Percent Auto 0.2 % (0.2-1.2); Eosinophils Percent Auto 0.1 % (0-4.4); Immature Granulocyte Absolute 0.09 K/mm3 (0.00-0.031); Immature Granulocyte Percent A 0.8 % (0-0.5); Lymphocytes Absolute Auto 1.42 K/mm3 (0.9-3.2); Lymphocytes Percent Auto 12.8 % (18.3-44.2); Mean Corpuscular HGB Conc 32.4 g/dl (32-36); Mean Corpuscular Hemoglobin 28.9 pg (26-34); Mean Corpuscular Volume 89.2 fl (80-100); Mean Platelet Volume 10.2 fl (7.4-10.4); Monocytes Absolute Auto 0.5 K/mm3 (0.1-0.6); Monocytes Percent Auto 4.3 % (2.6-8.5); Neutrophils Absolute Auto 9.1 K/mm3 (1.3-6.7); Neutrophils Percent Auto 81.8 % (45.5-73.1); Platelet Count Result 375 k/mm3 (150-375); Red Blood Count 3.81 M/mm3 (4.2-5.4); White Blood Count 11.1 K/mm3 (4.5-10.0)
--- NOTE | 2022-06-15 18:03 | WPDANESEPPF ---
Anes - Initial Pre Proc Eval Procedure: Operation Date: 06/17/22 07:30 Proposed Procedures p Repeat Section with Bilateral Tubal Ligation - Beronica Palma MD Date/Time: 06/15/22 18:03 Surgeon: Beronica Palma MD Pre Op Diagnosis: Patient Data Age: 31 Gender: F Height: 1.57 m Weight: 80 kg Last Vital Signs Temp 36.2 C L 06/15/22 17:07 Pulse 94 06/15/22 18:01 BP 109/65 06/15/22 18:01 Pulse Ox 100 06/15/22 18:02 Allergies Allergy/AdvReac Type Severity Reaction Status Date / Time No Known Allergies Allergy Verified 01/12/22 17:51 Home Medications Medication Instructions Recorded Confirmed Type prenat.vits,karlie,[id number] 1 tablet PO HS 05/26/22 06/01/22 History cephalexin 500 mg capsule 500 mg PO Q8H #30 caps 06/05/22 06/15/22 Rx hydrocortisone acetate 25 mg 25 mg RECTAL DAILY #12 ea 06/07/22 06/15/22 Rx rectal suppository (Anusol-HC) Laboratory Tests 06/15/22 06/15/22 16:57 16:57 WBC 11.1 K/mm3 H K/mm3 (4.5-10.0) RBC 3.81 M/mm3 L M/mm3 (4.2-5.4) Hgb 11.0 g/dL L g/dL (12.0-15.0) Hct 34.0 % L % (37.0-47.0) MCV 89.2 fl fl (80-100) MCH 28.9 pg pg (26-34) MCHC 32.4 g/dl g/dl (32-36) RDW 14.0 % % (11.5-14.5) Plt Count 375 k/mm3 k/mm3 (150-375) MPV 10.2 fl fl (7.4-10.4) Immature Gran % (Auto) 0.8 % H % (0-0.5) Neut % (Auto) 81.8 % H % (45.5-73.1) Lymph % (Auto) 12.8 % L % (18.3-44.2) [place] % (Auto) 4.3 % % (2.6-8.5) Eos % (Auto) 0.1 % % (0-4.4) Baso % (Auto) 0.2 % % (0.2-1.2) Lymph # (Auto) 1.42 K/mm3 K/mm3 (0.9-3.2) [place] # (Auto) 0.5 K/mm3 K/mm3 (0.1-0.6) Eos # (Auto) 0.0 K/mm3 K/mm3 (0-0.3) Baso # (Auto) 0.0 K/mm3 K/mm3 (0.0-0.1) Abs Immat Gran (auto) 0.09 K/mm3 H K/mm3 (0.00-0.031) Absolute Neuts (auto) 9.1 K/mm3 H K/mm3 (1.3-6.7) Absolute Nucleated RBC 0.0 K/mm3 K/mm3 (0.0-0.012) Nucleated RBC % 0.0 % % (0.0-0.2) RPR Pending Patient hx anesthesia problems: none Family hx anesthesia problems: none Results Review: All pre-operative results and documents have been reviewed as part of the pre-operative evaluation. [facility] Surgical History Surgical History Previous section Family History Family History (Updated 05/26/22 @ 12:51 by Elaine Ambriz RN) Other Unknown family medical history Social History Social History Smoking status: Never smoker Alcohol intake: never Substance use: never Gender identity (if verbalized by the patient): Female Spiritual care concerns: No Anes - Eval Final PreProcedure Day of Procedure 06/15/22 18:03 Patient weight: obese Heart: regular rate and rhythm Lungs: clear to auscultation and normal air movement Airway: Mallampati scale class II Neurological: alert and oriented Last oral intake: >/= 8 hours ASA classification: II Emergent: no Anesthetic plan: proceed Anesthesia type and monitoring: regional epidural and standard monitoring Other findings: patient uncomfortable - start time not for 1 hour, epidural placed Results Review: All pre-operative results and documents have been reviewed as part of the pre-operative evaluation. Informed Consent: The patient's anesthetic plan and its attendant risks and benefits were discussed with the patient/family/POA. Questions were solicited and answers provided to the satisfaction of the patient/family/POA.
--- NOTE | 2022-06-15 18:33 | PM.IMHP ---
H&P: HPI History of Present Illness Date/Time: 06/15/22 17:59 Chief Complaint: contractions and vaginal spotting Narrative: Nikki is a 31yo @ 38.5wks who presented to L&D w/ contractions and vaginal spotting. She was found to be 4cm and almost completely effaced on exam with regular contractions. She was scheduled for repeat with bilateral tubal ligation on 06/17/22 Her is complicated by: 1. C/s x2-- for repeat 2. Desires permanent sterilization, form signed 03/09/22 3. LSC cholecystectomy @ 16wga 4. H/o PPH and blood transfusion w/ first 5. 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 Anemia on iron BID 7. Elevated 1h glucose; 3 hour normal 8. Campylobacter food poisoning @ 27wks [facility] Surgical History Surgical History Previous section Family History Family History (Updated 05/26/22 @ 12:51 by Elaine Ambriz RN) Other Unknown family medical history Social History Social History Smoking status: Never smoker Alcohol intake: never Substance use: never Gender identity (if verbalized by the patient): Female Spiritual care concerns: No Meds Home Medications and Allergies Home Medications Medication Instructions Recorded Confirmed Type prenat.vits,karlie,tat-[id number] 1 tablet PO HS 05/26/22 06/01/22 History cephalexin 500 mg capsule 500 mg PO Q8H #30 caps 06/05/22 06/15/22 Rx hydrocortisone acetate 25 mg 25 mg RECTAL DAILY #12 ea 06/07/22 06/15/22 Rx rectal suppository (Anusol-HC) Allergies Allergy/AdvReac Type Severity Reaction Status Date / Time No Known Allergies Allergy Verified 01/12/22 17:51 Vital Signs Vital Signs - 24 hr 06/15/22 17:07 06/15/22 17:42 06/15/22 17:44 Temperature 97.1 F L Pulse Rate 104 H Blood Pressure 119/74 Pulse Oximetry 92 90 06/15/22 17:46 06/15/22 17:49 06/15/22 17:52 Temperature Pulse Rate 101 H 99 100 Blood Pressure 110/63 114/70 105/42 L Pulse Oximetry 100 100 06/15/22 17:53 06/15/22 17:55 06/15/22 17:57 Temperature Pulse Rate 101 H 92 Blood Pressure 118/46 L 115/70 Pulse Oximetry 100 06/15/22 17:58 Temperature Pulse Rate 91 Blood Pressure 114/60 Pulse Oximetry Exam Const: General: cooperative, healthy appearing and comfortable Resp: Effort & Inspection: normal respiratory effort Cardio: Rate: regular rate GI: Inspection: normal to inspection GI Palp: Yes Soft to palpation : Other: FHT's: 140's/mod alvin/ + accels/ no decels - cat 1 TOCO: ctxs q3min Cervix: 4/C/-2 Presentation: cephalic Membranes: intact Skin: General skin exam: normal color Neuro: General: patient oriented x3 Extrem: General: normal to inspection Psych: Appearance: grossly normal Affect: normal affect Attitude: cooperative H&P: Results Labs Labs: Short CBC 06/15/22 Range/Units 16:57 WBC 11.1 H (4.5-10.0) K/mm3 Hgb 11.0 L (12.0-15.0) g/dL Hct 34.0 L (37.0-47.0) % Plt Count 375 (150-375) k/mm3 Assessment and Plan Assessment and plan (1) Active labor at term: Status: Acute (2) History of 2 sections: Code(s): Z98.891 - History of uterine scar from previous surgery Status: Acute (3) Request for sterilization: Code(s): Z30.2 - Encounter for sterilization Status: Acute Plan - Labor at term w/ 2 prior c-sections; proceed with repeat . Pt no longer desires future fertility; will also proceed with tubal ligation. - All risks and benefits explained in detail - GBS neg
--- NOTE | 2022-06-15 18:33 | WPDHPUPDATE1 ---
History and Physical Update Update Date/Time: 06/15/22 18:33 History and Physical has been reviewed, including an updated exam of the patient. There are NO changes in the patient's condition. Risks, benefits, and alternatives have been discussed and questions answered. Patient agrees to proceed with procedure.
[2022-06-15] MEDS: ceFAZolin 2 GM/D5W 50 ML 2 GM/50 ML BAG IVPB (18:43)
[2022-06-15] MEDS: miSOPROStol 200 MCG TABLET 800 MCG RECTAL (20:23)
[2022-06-15] MEDS: METHYLERGONOVINE MALEATE 0.2 MG/ML VIAL IM (20:23)
--- NOTE | 2022-06-15 20:28 | PM.OBPRVD ---
OB - Delivery Note Procedure Delivery date: 06/15/22 Procedure: Procedures Operation Date: 06/15/22 18:30 <No data on this case meets the specified criteria> Repeat low transverse section with bilateral tubal ligation Events: Previous Delivery (x2) Quantitative Blood Loss (ml): 905 Anesthesia type: Epidural Disposition: Floor [place] Baby Date of : 06/15/22 Time of : 19:26 Weeks of gestation at delivery: 38 (.5) gender: Female Weight (pounds): 7 Weight (ounces): 3 presentation: vertex position: Left Occiput Transverse Placenta delivery description: Expressed Cord Vessel Description: 3 Vessels and Delayed Cord Clamping score one minute: 8 score five minutes: 9 Narrative: She was counseled on all risks and benefits in detail. She was taken to the operating room where epidural had previously been placed and was found to be adequate. She was then prepped and draped in the normal sterile fashion. She received 2g Ancef and a time out was performed. A Pfannenstiel incision was made in the skin and carried down to the underlying fascia. The fascia was nicked on either side of the midline and the fascial incision was extended laterally and superiorly. The fascia was then elevated and the underlying rectus muscles were dissected off the fascia, superiorly and inferiorly. The rectus muscles were then in the midline and the peritoneum was entered sharply. Extensive adhesions were noted on the anterior uterus. Multiple pieces of omentum were adhered to the uterus, which were taken down using 0 Vicryl ties. The adhesions lower included the bladder. So, careful attention was made to adequately and carefully dissect a bladder flap. A low transverse incision was made on the lower uterine segment and the placenta was noted. The occiput was brought to the hysterotomy and the head was easily delivered, rupturing the bag and clear fluid was noted. The shoulder and body then followed without complications. The infant had spontaneous cry. The cord was clamped and cut and the infant was handed off to the awaiting pediatric nurse. A segment of the cord was collected for cord gases. The remaining cord blood was collected for typing. With pitocin infusing, the placenta delivered with gentle traction on the cord without complications. The uterus was then cleared out of all clots and debris using a clean, moist lap. The hysterotomy was then repaired in a running, interlocking fashion using 0 Vicryl. The hysterotomy was found to be hemostatic and good uterine tone was noted. Additional omental adhesions were taken down to visualize the fundus and adnexa. And multiple 0 Vicryl ties were used to obtain hemostasis. The bilateral adnexa were examined and found to be normal. The right fallopian tube was elevated using a [place] clamp. The tube was doubly tied using 0 Chromic suture. A segment of the tube was then cut using Metzenbaum scissors. The raw edges were made hemostatic with bovie cautery. The same procedure was performed on the left side. The pelvis was cleared of all clots and fluid. The peritoneum, muscle, and fascia were examined and made hemostatic with bovie cautery. The fascia was then repaired using a two separate 0 Vicryl sutures in a running fashion. The subcutaneous tissue was then irrigated and made hemostatic with bovie cautery. The subcutaneous tissue was then reapproximated using 2-0 Vicryl. The skin was then closed using 4-0 Monocryl in a running subcuticular fashion. Sponge, lap, needle and instrument counts were correct at the end of the procedure x2. The patient tolerated the procedure well and was taken to recovery in a stable condition. The uterus was then noted to be slightly boggy; ~ 150cc of clots were evacuated from the uterus. She was given methergine 0.2mg IM and misoprostol 800mcg rectally and good uterine tone was noted. [facility] Delivery Billing Delivery Del
[2022-06-15] MEDS: OXYTOCIN 30 UNITS/NS 500 ML 30 UNITS/500 ML BAG 125 UNITS IV CONT (20:52)
[2022-06-15] MEDS: KETOROLAC 30 MG/ML VIAL (*BKC) IV PUSH (23:38)
[2022-06-16 00:02] VITALS: BP 95/68; PULSE 84; RESP 18; TEMP 36.8; O2SAT 99
[2022-06-16] MEDS: DEXTROSE 5%/0.45% SOD CHL 1,000 ML 125 ML IV CONT (01:36)
[2022-06-16 05:18] VITALS: BP 93/63; PULSE 86; RESP 18; TEMP 36.9; O2SAT 99
[2022-06-16 05:30] LABS: Basophils Percent Auto 0.2 % (0.2-1.2); Eosinophils Percent Auto 0.1 % (0-4.4); Hematocrit 23.9 % (37.0-47.0); Hemoglobin 7.7 g/dL (12.0-15.0); Immature Granulocyte Absolute 0.08 K/mm3 (0.00-0.031); Immature Granulocyte Percent A 0.9 % (0-0.5); Lymphocytes Absolute Auto 1.23 K/mm3 (0.9-3.2); Lymphocytes Percent Auto 13.2 % (18.3-44.2); Mean Corpuscular HGB Conc 32.2 g/dl (32-36); Mean Corpuscular Hemoglobin 28.9 pg (26-34); Mean Corpuscular Volume 89.8 fl (80-100); Mean Platelet Volume 10.3 fl (7.4-10.4); Monocytes Absolute Auto 0.6 K/mm3 (0.1-0.6); Neutrophils Absolute Auto 7.4 K/mm3 (1.3-6.7); Neutrophils Percent Auto 79.6 % (45.5-73.1); Platelet Count Result 231 k/mm3 (150-375); Red Blood Count 2.66 M/mm3 (4.2-5.4); Red Cell Distribution Width 13.9 % (11.5-14.5); White Blood Count 9.3 K/mm3 (4.5-10.0)
--- NOTE | 2022-06-16 06:45 | PC.NURSE ---
PT introductions made and plan of care discussed per post , post op c section, pain management, breast feeding, daily care activities. PT and spouse both recipients of such instructions and no barriers to learning identified at this time. PT received such instructions this shift via one to one discussion, mom baby care guide and demonstrations. PT verbalized understanding of such care.
[2022-06-16 07:52] LABS: Rapid Plasma Reagin Non-Reactive (NonReactive)
[2022-06-16 07:55] VITALS: BP 102/62; PULSE 88; RESP 18; TEMP 37.1; O2SAT 99
[2022-06-16] MEDS: KETOROLAC 30 MG/ML VIAL (*BKC) IV PUSH (08:23)
[2022-06-16] MEDS: HYDROcodone/acetaminophen (*CRX) 5-325 MG TABLET 1 TAB PO ×4 (08:24→23:55)
[2022-06-16] MEDS: LANOLIN (LANSINOH) 7.5 GM CREAM 1 APPLIC (08:24)
[2022-06-16] MEDS: SIMETHICONE 80 MG TAB.CHEW PO ×4 (08:24→23:56)
[2022-06-16] MEDS: POLYSACCHARIDE IRON COMPLEX 150 MG CAPSULE PO ×2 (08:25→15:08)
[2022-06-16] MEDS: DOCUSATE SODIUM 100 MG CAPSULE PO ×2 (08:25→15:07)
[2022-06-16] MEDS: MULTIVIT/MIN/PREN/FOL AC/IRON TABLET 1 TAB PO (08:25)
[2022-06-16] MEDS: LANOLIN (LANSINOH) 7.5 GM CREAM 1 APPLIC TOPICAL (08:29)
[2022-06-16 11:55] VITALS: BP 88/48; PULSE 87; RESP 18; TEMP 36.5; O2SAT 98
--- NOTE | 2022-06-16 12:13 | PM.OBPNVD ---
OB - PN: Subj Subjective Date/time seen: 06/16/22 11:52 Narrative: POD#1 Nikki reports doing ok today. 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 Her pain is controlled with PO meds. She is tolerating regular diet. The cuadra catheter is still in place. She has not passed gas or ambulated yet. She had extensive adhesions with excessive bleeding; no symptoms of anemia currently. She denies any issues with her incision. She is breast feeding. Didn't get much sleep overnight; very tired. OB - PN: Obj Data Labs CBC & Chem 7: 06/16/22 04:58 Labs: Laboratory Results - last 24 hr 06/15/22 06/15/22 06/15/22 16:57 16:57 16:57 WBC 11.1 H RBC 3.81 L Hgb 11.0 L Hct 34.0 L MCV 89.2 MCH 28.9 MCHC 32.4 RDW 14.0 Plt Count 375 MPV 10.2 Immature Gran % (Auto) 0.8 H Neut % (Auto) 81.8 H Lymph % (Auto) 12.8 L [place] % (Auto) 4.3 Eos % (Auto) 0.1 Baso % (Auto) 0.2 Lymph # (Auto) 1.42 [place] # (Auto) 0.5 Eos # (Auto) 0.0 Baso # (Auto) 0.0 Abs Immat Gran (auto) 0.09 H Absolute Neuts (auto) 9.1 H Absolute Nucleated RBC 0.0 Nucleated RBC % 0.0 RPR Non-reactive Blood Type A Positive Antibody Screen Positive Antibody Identification Anti-c Antigen Identification Cancelled DEBORA, IgG Interpret Not Performed DEBORA, Poly Interpret Neg DEBORA, Complement Interp Not Performed 06/16/22 04:58 WBC 9.3 RBC 2.66 L Hgb 7.7 L D Hct 23.9 L MCV 89.8 MCH 28.9 MCHC 32.2 RDW 13.9 Plt Count 231 MPV 10.3 Immature Gran % (Auto) 0.9 H Neut % (Auto) 79.6 H Lymph % (Auto) 13.2 L [place] % (Auto) 6.0 Eos % (Auto) 0.1 Baso % (Auto) 0.2 Lymph # (Auto) 1.23 [place] # (Auto) 0.6 Eos # (Auto) 0.0 Baso # (Auto) 0.0 Abs Immat Gran (auto) 0.08 H Absolute Neuts (auto) 7.4 H Absolute Nucleated RBC 0.0 Nucleated RBC % 0.0 RPR Blood Type Antibody Screen Antibody Identification Antigen Identification DEBORA, IgG Interpret DEBORA, Poly Interpret DEBORA, Complement Interp OB - PN A/P Plan day: 1 Plan: routine care Comments: - Repeat CBC this afternoon due to larger than expected drop in H/H - Encouraged to ambulate, stay hydrated, iron BID - If no spontaneous void after 6 hours; replace cuadra catheter - PO pain meds Time Spent With Patient Time: Total time spent is greater than 50% in coordination of care (as documented) at patient's floor/unit and/or counseling patient: Review of Systems Constitutional: Constitutional: Denies chills, Denies fever(s) and Denies headache(s) Eyes: Eyes: Denies change in vision ENT: Denies dizziness and Denies headache(s) Cardiovascular: Cardiovascular: Denies chest pain, Denies palpitations and Denies dyspnea Respiratory: Respiratory: Denies cough and Denies dyspnea Gastrointestinal: Gastrointestinal: Denies nausea and Denies vomiting Genitourinary: Comments: normal bleeding Neurologic: Denies dizziness and Denies headache(s) Endocrine: Endocrine: Denies palpitations Exam Const: General: cooperative, healthy appearing, comfortable and no acute distress Orientation/consciousness: patient oriented x3 Resp: Effort & Inspection: normal respiratory effort Auscultation: clear to auscultation bilaterally Cardio: Rate: regular rate GI: Inspection: non-distended and incision (covered with clean dressing) GI Palp: Yes abdominal tenderness (appropriate) and Yes Soft to palpation Auscultation: normal bowel sounds : Other: fundus firm Skin: General skin exam: normal color Neuro: General: patient oriented x3 Extrem: General: normal to inspection Psych: Appearance: grossly normal Affect: normal affect Attitude: cooperative
[2022-06-16 14:11] LABS: Hematocrit 24.6 % (37.0-47.0); Hemoglobin 8.1 g/dL (12.0-15.0); Mean Corpuscular HGB Conc 32.9 g/dl (32-36); Mean Corpuscular Hemoglobin 28.6 pg (26-34); Mean Corpuscular Volume 86.9 fl (80-100); Mean Platelet Volume 9.9 fl (7.4-10.4); Platelet Count Result 282 k/mm3 (150-375); Red Blood Count 2.83 M/mm3 (4.2-5.4); Red Cell Distribution Width 13.9 % (11.5-14.5); White Blood Count 12.4 K/mm3 (4.5-10.0)
[2022-06-16] MEDS: IBUPROFEN 600 MG TABLET PO ×2 (15:08→23:56)
[2022-06-16 16:00] VITALS: BP 106/62; PULSE 79; RESP 16; RESP 18; TEMP 37.1; O2SAT 99
--- NOTE | 2022-06-16 16:43 | PC.NURSE ---
Addendum entered by Cielo García RN 06/16/22 16:47: time of assessment was [id number] Original Note: [id number] Introductions were made, then consulted with patient to assess needs related to . Primary RN Moy is working with patient on latching using football position and mother denies pain or any type of pinching or biting discomfort. has a nice rounded cheek line and has suck/swallow ratios that are good, visualized and heard. Mother works well with her . Encouraged understanding of the benefits of skin to skin (unwrapping and placing vertically on her chest), responsive feeding and how to watch for early feeding signs, frequency of feeding on demand about every 8-12 times in 24 hours (every 2-3 hours), milk production, duration of feeding, signs of adequate intake/output and how to record on the feeding sheet. Reviewed positioning, supporting the breast, asymmetrical latch (off-center), and leading with the chin with a big open side gape. Infant self detached after 10 min and nipple was slightly misshaped and was content and placed skin to skin on mom's chest between her breast. Nipple care reviewed with optimal latch and good positioning. Mother voiced understanding of responsive feedings, stimulating with skin to skin, hand expressed colostrum, touch, talking to infant to encourage if it has been 2 -3 hours since the start of the last , to call if does not latch or there is discomfort with . Reported to primary RN
--- NOTE | 2022-06-16 17:35 | WPDANLDNPN2 ---
Anes-Prog Note L&D-Neuraxial Date/Time: 06/16/22 17:35 Neuraxial medications: intrathecal PF morphine Opiod-related complaints: none Patient feedback: Patient satisfied with post-operative pain management.
--- NOTE | 2022-06-16 17:36 | WPDANLDPN2 ---
Anes-Prog Note L&D Date/Time: 06/16/22 17:36 Comfortable throughout: section Neuraxial method: spinal Epidural/Spinal procedure site: clean & non-tender Neuro status: Neuro function grossly intact. Cardiovascular status: normal Respiratory status: normal Airway patency: baseline Mental status: baseline Post-Op hydration status: normal Vital Signs: Last Vital Signs Temp 36.5 C 06/16/22 11:55 Pulse 87 06/16/22 11:55 Resp 18 06/16/22 11:55 BP 88/48 L 06/16/22 11:55 Pulse Ox 98 06/16/22 11:55 O2 Del Method Room Air 06/16/22 05:18 Pain score (VAS): 0 I/O: Intake & Output 06/16/22 06/16/22 06/16/22 07:59 15:59 23:59 Intake Total 400 2400 Output Total 775 1000 Balance -375 1400 Patient feedback: Patient satisfied with anesthetic care.
--- NOTE | 2022-06-16 17:37 | WPDANLDPN2 ---
Anes-Prog Note L&D Date/Time: 06/16/22 17:37 Comfortable throughout: section Neuraxial method: spinal Epidural/Spinal procedure site: clean & non-tender Neuro status: Neuro function grossly intact. Cardiovascular status: normal Respiratory status: normal Airway patency: baseline Mental status: baseline Post-Op hydration status: normal Vital Signs: Last Vital Signs Temp 36.5 C 06/16/22 11:55 Pulse 87 06/16/22 11:55 Resp 18 06/16/22 11:55 BP 88/48 L 06/16/22 11:55 Pulse Ox 98 06/16/22 11:55 O2 Del Method Room Air 06/16/22 05:18 Pain score (VAS): 0 I/O: Intake & Output 06/16/22 06/16/22 06/16/22 07:59 15:59 23:59 Intake Total 400 2400 Output Total 775 1000 Balance -375 1400 Patient feedback: Patient satisfied with anesthetic care.
[2022-06-16 20:00] VITALS: BP 92/51; PULSE 89; RESP 18; TEMP 36.8; O2SAT 98
[2022-06-17] MEDS: HYDROcodone/acetaminophen (*CRX) 5-325 MG TABLET 1 TAB PO ×5 (03:36→20:49)
[2022-06-17] MEDS: IBUPROFEN 600 MG TABLET PO ×3 (06:48→20:49)
[2022-06-17] MEDS: POLYSACCHARIDE IRON COMPLEX 150 MG CAPSULE PO ×2 (06:49→17:21)
[2022-06-17] MEDS: DOCUSATE SODIUM 100 MG CAPSULE PO ×2 (06:49→17:21)
[2022-06-17] MEDS: MULTIVIT/MIN/PREN/FOL AC/IRON TABLET 1 TAB PO (06:49)
[2022-06-17] MEDS: SIMETHICONE 80 MG TAB.CHEW PO (06:49)
[2022-06-17 07:40] VITALS: BP 98/51; PULSE 90; RESP 16; TEMP 36.9; O2SAT 97
--- NOTE | 2022-06-17 10:59 | PC.NURSE ---
[id number] Consulted with patient to assess needs related to . Mother led conversation with her experience with feeding baby so far and is concerned that there are times she is tired and infant isn't latching deep enough. Mother works well with her infant with encouragement even though she is tired from delivery blood loss. Mother is her on the left breast using football and assessment shows latch of less than 90 degrees and mom states there's discomfort. Reviewed working with infant, breast, nipples and how to protect the nipples with an optimal deep latch, good positioning, and good hand washing. Encouraged understanding the benefits of skin to skin, responding to feeding cues, frequencies of feeding 8-12 times in 24 hours (approximately 2-3 hours), duration of feedings, milk production, intake/output feeding sheet and signs of adequate intake encouraging swallowing at the breast. Reviewed positioning and alignment, supporting breast, off-centered (asymmetrical latch) and leading with the chin with big open wide gape. latched optimally to the right breast in football position. Education given to mother of how to visualize suck/swallow ratios and drinking at the breast. Infant was able to maintain latch for 10 min without discomfort to mother, then self-detaches. Nipple care reviewed with optimal latch and good positioning. Infant showing feeding cues and offered right breast using football positioning and latches optimally after a few attempts. Parents visualize suck/swallow ratios and a discussion regarding infrequent swallowing requires frequent feedings closer to 2- 2 1/2 hours. Reviewed milk production, blood loss, delayed milk supply, and possibly supplementing until her milk is fully in. Reviewed intake/output feeding sheet, weight, jaundice levels, and signs of adequate intake encouraging swallowing at the breast. Resources used to facilitate learning were used from the visual handout/mom and baby guide. Parents voiced understanding of the education shared, calling for assistance if the infant does not latch or if there is discomfort with . Reported to the primary RN.
--- NOTE | 2022-06-17 14:07 | PM.OBPNVD ---
OB - PN: Subj Subjective Date/time seen: 06/17/22 13:38 Narrative: POD#2 Nikki reports doing good today. Her bleeding is light. Her pain is controlled. She is tolerating regular diet, voiding, passing gas, and ambulating without issues. She denies any issues with her incision. She is breast feeding. Wants to go home tomorrow. OB - PN: Obj Data Labs CBC & Chem 7: 06/16/22 13:57 Labs: Laboratory Results - last 24 hr 06/16/22 13:57 WBC 12.4 H RBC 2.83 L Hgb 8.1 L Hct 24.6 L MCV 86.9 MCH 28.6 MCHC 32.9 RDW 13.9 Plt Count 282 MPV 9.9 OB - PN A/P Assessment and Plan (1) S/P repeat low transverse : Code(s): Z98.891 - History of uterine scar from previous surgery Status: Acute (2) S/P tubal ligation: Code(s): Z98.51 - Tubal ligation status Status: Acute Plan day: 2 Plan: routine care and discharge home (tomorrow) Comments: - Pelvic rest; take meds as prescribed - Incision care/no heavy lifting - ER return precautions: fever, n/v/abd pain, bleeding, HTN Time Spent With Patient Time: Total time spent is greater than 50% in coordination of care (as documented) at patient's floor/unit and/or counseling patient: Review of Systems Constitutional: Constitutional: Denies chills, Denies fever(s) and Denies headache(s) Eyes: Eyes: Denies change in vision ENT: Denies dizziness and Denies headache(s) Cardiovascular: Cardiovascular: Denies chest pain, Denies palpitations and Denies dyspnea Respiratory: Respiratory: Denies cough and Denies dyspnea Gastrointestinal: Gastrointestinal: Denies nausea and Denies vomiting Genitourinary: Comments: normal bleeding Neurologic: Denies dizziness and Denies headache(s) Endocrine: Endocrine: Denies palpitations Exam Const: General: cooperative, comfortable and no acute distress Orientation/consciousness: patient oriented x3 Resp: Effort & Inspection: normal respiratory effort Auscultation: clear to auscultation bilaterally Cardio: Rate: regular rate GI: Inspection: non-distended and incision (covered with clean dressing) GI Palp: Yes abdominal tenderness (appropriate) and Yes Soft to palpation Auscultation: normal bowel sounds : Other: fundus firm Skin: General skin exam: normal color Neuro: General: patient oriented x3 Extrem: General: normal to inspection Psych: Appearance: grossly normal Affect: normal affect Attitude: cooperative
[2022-06-17 20:40] VITALS: BP 106/68; PULSE 98; RESP 20; TEMP 37.1
[2022-06-17] MEDS: TETANUS,DIPHTHERIA,AC PERTUSSIS ADULT (0.5 ML) BOOSTRIX IM (20:52)
[2022-06-18] MEDS: HYDROcodone/acetaminophen (*CRX) 5-325 MG TABLET 1 TAB PO ×2 (03:13→09:37)
[2022-06-18] MEDS: IBUPROFEN 600 MG TABLET PO ×2 (03:14→09:36)
[2022-06-18 09:10] VITALS: BP 113/64; PULSE 96; RESP 18; TEMP 36.6; O2SAT 100
[2022-06-18] MEDS: DOCUSATE SODIUM 100 MG CAPSULE PO (09:37)
[2022-06-18] MEDS: MULTIVIT/MIN/PREN/FOL AC/IRON TABLET 1 TAB PO (09:37)
--- NOTE | 2022-06-18 18:58 | PC.NURSE ---
1000 Patient viewed the discharge video Mother & Baby Care, The First Two Weeks . Patient was given the opportunity and encouraged to ask questions. Patient verbalized understanding of information shared and has been given the mother/baby guide for home reference.
[2022-06-20 10:31] VITALS: BP 113/67; PULSE 83; RESP 20; TEMP 36.9; O2SAT 100
--- NOTE | 2022-06-21 07:30 | PM.OBDSVD ---
DS: Admitting Diagnosis Discharge Date 06/18/22 Admitting Diagnosis labor previous x2 undesired future fertility DS: Discharge Diagnosis Discharge Diagnosis (1) S/P repeat low transverse : Code(s): Z98.891 - History of uterine scar from previous surgery Status: Acute (2) S/P tubal ligation: Code(s): Z98.51 - Tubal ligation status Status: Acute OB - DS: Summary OB Procedures : Ultrasound OB Procedures Intrapartum: low cervical, transverse OB Procedures: : None Peripartum Data Delivery Method: Section Procedures: Procedures Operation Date: 06/15/22 18:30 Actual Procedure Side Surgeon p Section Beronica Palma MD 1: Gender: Female Disposition of : home Status at Discharge Functional status at discharge: independent ambulation Overall status at discharge: patient is back to baseline Time Spent with Patient Time attestation: Total time spent providing and/or coordinating discharge services: Time spent: Less than 30 minutes Exam Const: General: cooperative, healthy appearing, comfortable and no acute distress Orientation/consciousness: patient oriented x3 Resp: Effort & Inspection: normal respiratory effort Auscultation: clear to auscultation bilaterally Cardio: Rate: regular rate GI: Inspection: non-distended and incision (covered with a clean dressing) GI Palp: No abdominal tenderness and Yes Soft to palpation Auscultation: normal bowel sounds : Other: fundus firm Skin: General skin exam: normal color Neuro: General: patient oriented x3 Extrem: General: normal to inspection Psych: Appearance: grossly normal Affect: normal affect Attitude: cooperative DS: Data Data Completed and Pending Pending studies at discharge: Pending at discharge 06/15/22 19:38 Surgical [PTH] Routine Discharge Plan Discharge Attending physician on discharge: Beronica Palma Discharging Clinician: Beronica Palma Anticipated Discharge Date/Time: 06/18/22 12:00 Patient Disposition: Home, Self-Care Activity: may shower, may drive after 2 weeks and pelvic rest Diet: regular Discharge Instructions: Education: Mom and Baby Guide Given to: Mother Follow-Up: Call your delivering provider's office for an appointment to be seen in: 3 Weeks Mom and baby should come to the [facility] for the follow-up appointment. Appointment Date/Time: Monday, June 20, 2022 at 10:00 am What to expect at your follow-up visit: Physical Assessment Call [phone] if you are unable to keep your appointment time. BREAST CARE: * Wear a snug supportive bra. * For engorgement discomfort: Breast Feeding: * Apply warm moist washcloths * Express milk as needed to relieve engorgement * Wear loose clothing Bottle Feeding: * May apply ice packs * For sore nipples: * Identify correct latch-on * Apply warm moist washcloths before and after nursing * Air dry nipples after nursing * May apply Lansinoh cream to nipples ABDOMINAL INCISION: (if applicable) * Allow incision to air dry * Do NOT use lotions for powders on your incision * When showering, allow soap and water to run over the incision, but do not wash incision PERINEAL CARE: * Until bleeding stops, use your carlos bottle after urinating * Change your pad frequently throughout the day * You may take sitz baths several times a day (fill your bathtub with warm water and soak for 20 minutes.) Do NOT bathe in the water * No tub baths until seen by your physician - You may shower ACTIVITY: * Rest as much as possible. * Do not exercise or lift anything heavier than your baby (such as laundry or other children.) * Avoid stairs or driving as much as possible. * Do not put anything into the vagina. No douching,
== END 2022-06-18 13:17 | disposition home or self-care (01) | DRG 784 ==
LOC: ANHLDR 16:37 → ANHOB2 23:14
PROVIDERS: Admitting Provider Obstetrics & Gynecology; Visit Provider Obstetrics & Gynecology
DX: O34.211 Maternal care for low transverse scar from previous cesarean delivery (principal); O72.1 Other immediate postpartum hemorrhage; Z37.0 Single live birth; Z3A.38 38 weeks gestation of pregnancy; Z30.2 Encounter for sterilization; O99.02 Anemia complicating childbirth; D64.9 Anemia, unspecified
CPT/HCPCS: 36415; 85025; 85027; 86592; 86850; 86880; 86900; 86901; 86902; 88302; 88307; 90715; A9270; J0131; J0690; J1885; J2210; J2274; J2405; J2590; J2795; J7120

== ENCOUNTER 2022-09-20 19:17 | Emergency (ER) | payer BC, OTHER, SELFPAY ==
[2022-09-20 19:21] VITALS: BP 122/57; PULSE 88; RESP 18; TEMP 36.9; O2SAT 100
--- NOTE | 2022-09-20 20:21 | ED.GENADULT ---
HPI - General Adult General Chief complaint: Upper Respiratory Infection Stated complaint: COVID Symptoms Time Seen by Provider: 09/20/22 19:36 History of Present Illness HPI narrative: This is a 32-year-old female presenting ED with flu-like symptoms x2 days. Her symptoms include cough and congestion. She denies fever, chills, chest pain, difficulty breathing, nausea vomiting diarrhea, sore throat or ear fullness. Patient is younger son is here in the emergency department with her and he also has flu-like symptoms. Patient is concerned that she may have a viral illness given to her 3-month-old child at home. No other symptoms Related Data Allergies Allergy/AdvReac Type Severity Reaction Status Date / Time No Known Allergies Allergy Verified 07/28/22 10:06 Review of Systems Review of Systems: CONSTITUTIONAL: Denies night sweats. EYES: No eye pain ENT: Denies rhinorrhea CARDIOVASCULAR: Denies palpitations RESPIRATORY: Denies hemoptysis GASTROINTESTINAL: Denies hematemesis GENITOURINARY: Denies hematuria. SKIN: Denies rash MUSCULOSKELETAL: Denies myalgia. NEUROLOGIC: Denies weakness. PSYCHIATRIC: Denies delusions [facility] Surgical History Surgical History Previous section Family History Family History Other Unknown family medical history Social History Social History Smoking status: Never smoker Alcohol intake: never Substance use: never Gender identity (if verbalized by the patient): Female Spiritual care concerns: No Exam Narrative: APPEARANCE: No apparent distress. Head atraumatic. EYES: PERRLA/EOMI, NOSE: Normal no drainage NECK: Supple, Trachea midline RESPIRATORY: CTAB, No increased work of breathing. CARDIOVASCULAR: S1S2 appreciated ABDOMINAL: Soft, nontender, nondistended, MUSCULOSKELETAl: No obvious deformities NEURO: Alert. Moving 4/4 extremities SKIN:: Warm, dry. Normal color PSYCHIATRIC: Normal affect Course Vital Signs Vital signs: Vital Signs Temperature 98.4 F 09/20/22 19:21 Pulse Rate 88 09/20/22 19:21 Respiratory Rate 18 09/20/22 19:21 Blood Pressure 122/57 L 09/20/22 19:21 Pulse Oximetry 100 10/25/22 19:21 Oxygen Delivery Room Air 09/20/22 19:21 Temperature 98.4 F 09/20/22 19:21 Pulse Rate 88 09/20/22 19:21 Respiratory Rate 18 09/20/22 19:21 Blood Pressure 122/57 L 09/20/22 19:21 Pulse Oximetry 100 09/20/22 19:21 Oxygen Delivery Room Air 09/20/22 19:[address] [facility] Narrative Medical decision making narrative: This is a 32-year-old female presenting with flu-like symptoms. she is here with her son who was also ill. Her son was diagnosed with flu a, however the mother's test are negative. This may be a false positive and the patient should presume that she has influenza. the patient is nontoxic appearing. She has stable vital signs. She will be discharged home with instructions to continue her for symptomatic treatment. She can return to emergency department if she gets worse. Vital Signs Vital Signs: Vital Signs Temperature 98.4 F 09/20/22 19:21 Pulse Rate 88 09/20/22 19:21 Respiratory Rate 18 09/20/22 19:21 Blood Pressure 122/57 L 09/20/22 19:21 Pulse Oximetry 100 09/20/22 19:21 Oxygen Delivery Room Air 09/20/22 19:21 Temperature 98.4 F 09/20/22 19:21 Pulse Rate 88 09/20/22 19:21 Respiratory Rate 18 09/20/22 19:21 Blood Pressure 122/57 L 09/20/22 19:21 Pulse Oximetry 100 09/20/22 19:21 Oxygen Delivery Room Air 09/20/22 19:21 Lab Data Labs: Lab Results 09/20/22 Range/Units 19:43 Influenza A (RT-PCR) Pending Influenza B (RT-PCR) Pending SARS-CoV-2 RNA (RT-PCR) Pending Discharge Plan Discharge Clinical Impression: Acute viral syndrome, Upper r
[2022-09-20 20:35] LABS: Influenza A QL RT-PCR Negative (Negative); Influenza B QL RT-PCR Negative (Negative); SARS-CoV-2 RNA PCR Negative
== END 2022-09-20 21:53 | disposition home or self-care (01) ==
PROVIDERS: Emergency Provider Emergency Medicine
DX: B34.9 Viral infection, unspecified (principal); J06.9 Acute upper respiratory infection, unspecified; Z20.822 Contact with and (suspected) exposure to COVID-19
CPT/HCPCS: 87502; 99283; U0003; U0005

== ENCOUNTER 2022-10-12 09:38 | Outpatient (CLI) | payer BC, OTHER, SELFPAY ==
[2022-10-12 10:13] LABS: Alanine Aminotransferase 15 U/L (6-35); Albumin Level 4.3 g/dL (3.5-5.1); Alkaline Phosphatase 116 U/L (38-126); Aspartate Amino Transferase 23 U/L (14-36); Bilirubin,Total 0.6 mg/dL (0.2-1.3)
== END 2022-10-12 09:39 | disposition home or self-care (01) ==
PROVIDERS: Visit Provider Podiatrist Foot & Ankle Surgery
DX: B35.1 Tinea unguium (principal)
CPT/HCPCS: 36415; 80076

== ENCOUNTER 2022-11-07 14:25 | Emergency (ER) | payer BC, OTHER, SELFPAY ==
[2022-11-07 15:03] VITALS: BP 125/75; PULSE 83; RESP 16; TEMP 36.4; O2SAT 99
[2022-11-07 15:33] LABS: Basophils Percent Auto 0.5 % (0.2-1.2); Eosinophils Percent Auto 1.1 % (0-4.4); Hematocrit 35.8 % (37.0-47.0); Hemoglobin 11.2 g/dL (12.0-15.0); Immature Granulocyte Absolute 0.01 K/mm3 (0.00-0.031); Immature Granulocyte Percent A 0.3 % (0-0.5); Lymphocytes Absolute Auto 1.79 K/mm3 (0.9-3.2); Mean Corpuscular HGB Conc 31.3 g/dl (32-36); Mean Corpuscular Hemoglobin 26.9 pg (26-34); Mean Corpuscular Volume 86.1 fl (80-100); Mean Platelet Volume 10.5 fl (7.4-10.4); Monocytes Absolute Auto 0.4 K/mm3 (0.1-0.6); Monocytes Percent Auto 9.4 % (2.6-8.5); Neutrophils Absolute Auto 1.5 K/mm3 (1.3-6.7); Neutrophils Percent Auto 40.7 % (45.5-73.1); Platelet Count Result 337 k/mm3 (150-375); Red Blood Count 4.16 M/mm3 (4.2-5.4); Red Cell Distribution Width 16.5 % (11.5-14.5); White Blood Count 3.7 K/mm3 (4.5-10.0)
[2022-11-07 15:44] LABS: Alanine Aminotransferase 19 U/L (6-35); Alkaline Phosphatase 98 U/L (38-126); Anion Gap 6 mmol/L (8-16); Aspartate Amino Transferase 24 U/L (14-36); Bilirubin,Total 0.1 mg/dL (0.2-1.3); Blood Urea Nitrogen 14 mg/dL (7-17); Calcium 8.3 mg/dL (8.4-10.2); Carbon Dioxide 29 mmol/L (22-30); Chloride 103 mmol/L (98-107); Estimated CRCL calculation 91 ml/min; Estimated Glomerular Filt Rate > 60; Glucose 91 mg/dL (65-110); Lipase 79 U/L (23-300); Potassium 3.3 mmol/L (3.4-5.0); Sodium 138 mmol/L (137-145)
[2022-11-07 16:02] LABS: Influenza A QL RT-PCR Negative (Negative); Influenza B QL RT-PCR Negative (Negative); SARS-CoV-2 RNA PCR Positive
[2022-11-07 17:56] LABS: Appearance Urine Clear (Clear); Bilirubin Urine Negative (Negative); Blood Urine Negative (Negative); Color Urine Yellow (Yellow); Glucose Urine UA Negative (Negative); Ketones Urine Negative (Negative); Leukocyte Esterase Ur Negative LEU/UL (Negative); Nitrate Urine Negative (Negative); Protein Urine Negative (Negative); Specific Grav Ur 1.025 (1.001-1.035); Urobilinogen Urine 0.2 mg/dL (<2.0); pH Urine 5.5 (5.0-9.0)
[2022-11-07 18:03] LABS: Add Urine Microscopic? NO
--- NOTE | 2022-11-07 18:56 | ED.GENADULT ---
HPI - General Adult General Chief complaint: Nausea/Vomiting/Diarrhea <MAYRA Contreras Last Filed: 11/08/22 03:03> Stated complaint: COUGH,NAUSEA,BODY ACHES SINCE MONDAY <MAYRA Contreras Last Filed: 11/08/22 03:03> Time Seen by Provider: 11/07/22 18:50 <MAYRA Contreras Last Filed: 11/08/22 03:03> Source: patient <MAYRA Contreras Last Filed: 11/08/22 03:03> Mode of arrival: ambulatory <MAYRA Contreras Filed: 11/08/22 03:03> Limitations: no limitations <MAYRA Contreras Last Filed: 11/08/22 03:03> History of Present Illness HPI narrative: Patient is a 32 y/o female who presents to the ED with c/o N/V/D. Patient reports she began feeling unwell on Monday night. She developed nausea, vomiting, and diarrhea on Monday. She notes she felt slightly lightheaded at times. She denied having any abdominal pain. The nausea has since persisted which prompted her presentation. Patient also reported having a cough, congestion, body aches, headache over the weekend. She denies any sick contacts. Denies fever, chills, syncope, chest pain, difficulty breathing. She is vaccinated for COVID, not flu. <MAYRA Contreras Last Filed: 11/08/22 03:03> Related Data Allergies/adverse reactions: Allergies Allergy/AdvReac Type Severity Reaction Status Date / Time No Known Allergies Allergy Verified 07/28/22 10:06 <MAYRA Contreras Last Filed: 11/08/22 03:03> Review of Systems Review of Systems: CONSTITUTIONAL: Denies fever, chills, or sweats. EYES: Denies vision changes. ENT: Reports congestion. CARDIOVASCULAR: Denies chest pain. RESPIRATORY: Reports cough. Denies dyspnea. GASTROINTESTINAL: Reports N/V/D. Denies abdominal pain. GENITOURINARY: Denies dysuria, hematuria. MUSCULOSKELETAL: Reports myalgias. SKIN: Denies rash or itching. NEUROLOGIC: Reports headache, lightheadedness. <Dorothy Luque PA-C - Last Filed: 11/08/22 03:03> All systems reviewed & are unremarkable except as noted in HPI and below <Dorothy Luque PA-C - Last Filed: 11/08/22 03:03> PMFSH Past Medical History Medical History: Medical History No pertinent past medical history <Dorothy Luque PA-C - Last Filed: 11/08/22 03:03> Surgical History Surgical History: Surgical History (Updated 11/07/22 @ 18:57 by Dorothy Luque PA-C) Previous section S/P repeat low transverse S/P tubal ligation <Dorothy Luque PA-C - Last Filed: 11/08/22 03:03> Family History Family History: Family History Other Unknown family medical history <Dorothy Luque PA-C - Last Filed: 11/08/22 03:03> Social History Social History: Social History Smoking status: Never smoker Alcohol intake: never Substance use: never Gender identity (if verbalized by the patient): Female Spiritual care concerns: No <Dorothy Luque PA-C - Last Filed: 11/08/22 03:03> Exam Narrative: GENERAL: Well appearing, well-nourished, non-toxic, in no acute distress. HEAD: Normocephalic, atraumatic. NECK: Supple. No adenopathy, no masses. RESPIRATORY: Airway patent, respirations nonlabored. Clear to auscultation bilaterally, no rales, rhonchi, wheezing. CARDIOVASCULAR: Regular rate and rhythm without murmurs, rubs, or gallops. Peripheral pulses 2+ and equal bilaterally. ABDOMINAL: Soft, nontender, nondistended, no hepatosplenomegaly. Normoactive BS. MUSCULOSKELETAL: Moves all extremities. Strength/ROM intact without gross deformities. SKIN: Warm, dry, normal color. No rashes. NEURO: A&O X3. Speech clear. Cranial nerves II-XII grossly intact. Steady gait. No ataxic movements. PSYCHIATRIC: Appropriate mo
[2022-11-07] MEDS: POTASSIUM CHLORIDE 20 MEQ TABLET 40 MEQ PO (19:13)
[2022-11-07] MEDS: ONDANSETRON HCL ODT 4 MG TABLET PO (19:13)
== END 2022-11-07 20:12 | disposition home or self-care (01) ==
PROVIDERS: Emergency Medicine; Emergency Provider Emergency Medicine
DX: U07.1 COVID-19 (principal); R11.2 Nausea with vomiting, unspecified
CPT/HCPCS: 36415; 80053; 81003; 83690; 85025; 87636; 99283; A9270

== ENCOUNTER 2023-03-21 14:35 | Outpatient (CLI) | payer BC, OTHER, SELFPAY ==
[2023-03-21 15:39] LABS: Alanine Aminotransferase 15 U/L (6-35); Alkaline Phosphatase 90 U/L (38-126); Aspartate Amino Transferase 20 U/L (14-36); Bilirubin,Total 0.4 mg/dL (0.2-1.3)
[2023-03-21 15:52] LABS: Beta HCG Quantitative < 2.39 mIU/ML
[2023-03-21 16:16] LABS: HIV 1/2 Ab P24 Ag Result Negative (Negative)
[2023-03-22 13:48] LABS: Rapid Plasma Reagin Non-Reactive (NonReactive)
[2023-03-24 11:57] LABS: DHEA-Sulfate 110 mcg/dL (23-266)
[2023-03-25 04:19] LABS: FSH 7.1 mIU/mL (***); Progesterone 5.5 ng/mL (***); Prolactin 9.3 ng/mL (***)
[2023-03-27 10:54] LABS: Testosterone Free 3.5 pg/mL (0.1-6.4); Testosterone Total 28 ng/dL (2-45)
[2023-03-29 23:55] LABS: Estradiol, Ultrasensitive 82 pg/mL
== END 2023-03-21 14:36 | disposition home or self-care (01) ==
LOC: ANHLAB 14:36
PROVIDERS: Visit Provider Obstetrics & Gynecology
DX: Z11.3 Encounter for screening for infections with a predominantly sexual mode of transmission (principal); N92.0 Excessive and frequent menstruation with regular cycle
CPT/HCPCS: 36415; 80076; 82627; 82670; 83001; 84144; 84146; 84402; 84403; 84702; 86592; 86703; G0432

== ENCOUNTER 2023-04-10 01:19 | Day surgery (SDC) | payer BC, OTHER, SELFPAY ==
[2023-04-03 09:53] VITALS: BMI 31.4
--- NOTE | 2023-04-03 10:00 | PC.NURSE ---
Report to the Outpatient Waiting Room, entrance under the green pavilion located off [facility], at time 1000 on date 04/10/23. Planned Procedure Time: 04/10/23. Time changes happen often and if your time is changed the preop area will call you the afternoon before. - You and your visitor will be asked to self-screen and do not enter if you have any COVID symptoms. - A mask is optional within the hospital at this time. Patients may have clear liquids (water, carbonated beverages, clear teas, apple juice) until 3 hours prior to surgery with a maximum of 20 ounces. 0900 - No food from midnight until time of surgery - Infants may have breast milk until 4 hours before surgery, formula 6 hours prior to surgery. - Children will be allowed to drink immediately following surgery. If applicable, please bring a bottle or sippy cup to assist with drinking. Juice, water, soda, and popsicles are readily available. For infants on formula, please bring formula the day of surgery. Pacifiers are allowed. Take the following medications with a SIP of water the morning of surgery: citalopram DO NOT STOP ANY OF YOUR OTHER PRESCRIPTION MEDICATIONS PRIOR TO SURGERY ?EXCEPT THE FOLLOWING Medications to discontinue per physician none Date to take last dose n/a Please no make-up, nail luxembourgish, hairspray, perfume, deodorant, or body powder the day of surgery. No jewelry (including any body piercings) or valuables the day of surgery, leave them at home. Please take a shower or bath the night before, or the morning of, surgery with an antibacterial soap. Wear comfortable, loose fitting clothing. Children are encouraged to wear pajamas. - Jewelry must be removed prior to entering the operating room. Rings and piercings that are not removed may be cut off. - The hospital will not accept responsibility for valuables. - Please leave all valuables, including medications, at home the day of surgery. If you are going home after surgery, a licensed carrier driver must drive you home. - NO public transportation without another adult if you receive anesthesia. - We recommend that an adult stay with you for 24 hours following discharge. - We also recommend that you do not drive, make important decision, drink alcoholic beverages, or take any drugs that were not prescribed by your health care provider for at least 24 hours after your discharge time. For Pediatric surgeries, we recommend two adults accompany the child home. Follow any additional instructions given to you from your surgeon. If you or anyone in your household have experienced Covid symptoms in the past week, please notify your surgeon or the nurse liaison at the phone number below for possible testing. Telephone instructions given to Nikki Pablo and asked if any additional questions and then verbalized understanding. Patient advised to call surgeon office or pre surgery nurse liaison [phone] if any additional questions.
--- NOTE | 2023-04-10 07:05 | PM.IMHP ---
H&P: HPI History of Present Illness Date/Time: 04/10/23 07:05 Chief Complaint: AUB Narrative: Nikki is a 32yo [id number], who presents for surgery due to AUB. She has a h/o BTL. She reports her cycles are extremely heavy; using tampon and pad together. She states they're lasting a full 7 days and have been like this since her last . She was previously on OCPs though. She does not want to continue having heavy cycles as she had blood work w/ PCP; tsh normal, but was found to have iron def anemia. She is sexually active; would like to proceed with all STI screening. Wanting to proceed with surgery for her bleeding. Review of Systems Constitutional: Constitutional: Denies chills, Denies fever(s) and Denies headache(s) Eyes: Eyes: Denies change in vision ENT: Denies dizziness and Denies headache(s) Cardiovascular: Cardiovascular: Denies chest pain and Denies dyspnea Respiratory: Respiratory: Denies cough and Denies dyspnea Gastrointestinal: Gastrointestinal: Denies abdominal pain and Denies change in stool character Genitourinary: Genitourinary: Reports abnormal menses, Reports metrorrhagia, Denies pelvic pain, Denies vaginal discharge, Denies vaginal odor and Denies vaginal pruritus Neurologic: Denies dizziness and Denies headache(s) Psychiatric: Psychiatric: Denies anxiety and Denies depression [facility] Past Medical History Medical History 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 History of chlamydia 2017 Hx of trichomoniasis 2017 No pertinent past medical history Surgical History Surgical History History of cholecystectomy 01/07/2022 History of orthopedic surgery left arm broken puneet and screws placed 09/10/2021 Previous section primary C/S- lack of progress - completely dilated and was unable to deliver vaginally after pushing S/P repeat low transverse repeat xs 2 07/2010 & 05/2022 S/P tubal ligation 06/15/2022 - C- section and tubal Family History Family History Mother Hypertension Social History Social History (Updated 03/16/23 @ 14:40 by Briana Camarena [facility]) Smoking status: Never smoker Alcohol intake: current Drinks per week: 1 Substance use: never Substance use type: does not use Living arrangements: with family Additional living arrangements comments: Occupation/Education: occupation Additional occupation/education comments: quality Gender identity (if verbalized by the patient): Female Sexual Orientation (if Verbalized by the Patient): Straight or Heterosexual Spiritual care concerns: No Meds Home Medications and Allergies Home Medications Medication Instructions Recorded Confirmed Type citalopram 10 mg tablet 10 mg PO DAILY 04/03/23 04/03/23 History Allergies Allergy/AdvReac Type Severity Reaction Status Date / Time No Known Allergies Allergy Verified 04/03/23 09:52 Exam Const: General: cooperative, healthy appearing, comfortable and no acute distress Orientation/consciousness: patient oriented x3 Resp: Effort & Inspection: normal respiratory effort Cardio: Rate: regular rate GI: Inspection: normal to inspection GI Palp: No abdominal tenderness and Yes Soft to palpation : Other: deferred to OR Skin: General skin exam: normal color Neuro: General: patient oriented x3 Extrem: General: normal to inspection Psych: Appearance: grossly normal Affect: normal affect Attitude: cooperative Assessment and Plan Assessment and plan (1) Menorrhagia: Qualifiers: Menorrhagia type: with regular cycle Qualified Code(s): N92.0 - Excessive and frequent menstruation with regular cycle Code(s): N92.0 - Excessive and frequent menstruation with regular cycle Status: Acute Assessmen
--- NOTE | 2023-04-10 07:08 | WPDHPUPDATE1 ---
History and Physical Update Update Date/Time: 04/10/23 07:08 History and Physical has been reviewed, including an updated exam of the patient. There are NO changes in the patient's condition. Risks, benefits, and alternatives have been discussed and questions answered. Patient agrees to proceed with procedure.
--- NOTE | 2023-04-10 08:50 | P.PNAN_ITS ---
Anes - Initial Pre Proc Eval Procedure: Operation Date: 04/10/23 12:00 Proposed Procedures p Hysteroscopy, Dilation and Curettage, Mayra Endometrial Ablation - Beronica Palma MD Date/Time: 04/10/23 08:50 Surgeon: Beronica Palma MD Pre Op Diagnosis: menorrhagia Patient Data Age: 32 Gender: F Height: 1.57 m Weight: 78.1 kg Allergies Allergy/AdvReac Type Severity Reaction Status Date / Time No Known Allergies Allergy Verified 04/10/23 10:31 Home Medications Medication Instructions Recorded Confirmed Type citalopram 10 mg tablet 10 mg PO DAILY 04/03/23 04/03/23 History Patient hx anesthesia problems: none Family hx anesthesia problems: none Results Review: All pre-operative results and documents have been reviewed as part of the pre- operative evaluation. 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 Asthma Depression History of chlamydia 2017 Hx of trichomoniasis 2017 No pertinent past medical history Surgical History Surgical History History of cholecystectomy 01/07/2022 History of orthopedic surgery left arm broken puneet and screws placed 09/10/2021 Previous section primary C/S- lack of progress - completely dilated and was unable to deliver vaginally after pushing S/P repeat low transverse repeat xs 2 07/2010 & 05/2022 S/P tubal ligation 06/15/2022 - C- section and tubal Family History Family History Mother Hypertension Social History Social History (Updated 03/16/23 @ 14:40 by RAFAL Farrar) Smoking status: Never smoker Alcohol intake: current Drinks per week: 1 Substance use: never Substance use type: does not use Living arrangements: with family Additional living arrangements comments: Occupation/Education: occupation Additional occupation/education comments: quality Gender identity (if verbalized by the patient): Female Sexual Orientation (if Verbalized by the Patient): Straight or Heterosexual Spiritual care concerns: No Anes - Eval Final PreProcedure Day of Procedure 04/10/23 08:50 Patient weight: obese Heart: regular rate and rhythm Lungs: clear to auscultation and normal air movement Airway: Mallampati scale class II Neurological: alert and oriented Last oral intake: >/= 8 hours ASA classification: II Emergent: no Anesthetic plan: proceed Anesthesia type and monitoring: general GIVS and LMA and standard monitoring Results Review: All pre-operative results and documents have been reviewed as part of the pre- operative evaluation. Informed Consent: The patient's anesthetic plan and its attendant risks and benefits were discussed with the patient/family/POA. Questions were solicited and answers provided to the satisfaction of the patient/family/POA.
[2023-04-10 10:15] VITALS: BMI 31.1
[2023-04-10] MEDS: LACTATED RINGERS 1,000 ML 30 ML IV CONT (10:40)
[2023-04-10] MEDS: ACETAMINOPHEN 500 MG TABLET 1000 MG PO (10:44)
[2023-04-10 10:50] VITALS: BP 118/62; PULSE 84; RESP 16; TEMP 37.1; O2SAT 100
[2023-04-10] MEDS: KETOROLAC 30 MG/ML VIAL (*BKC) IV PUSH (12:25)
[2023-04-10 12:47] VITALS: BP 107/49; PULSE 88; RESP 12; TEMP 36.3; O2SAT 100
--- NOTE | 2023-04-10 12:47 | W.PM.PROC2 ---
Procedure Note - Detailed Date of Procedure 04/10/23 Pre-op Diagnosis menorrhagia Post-op Diagnosis Same Procedure Performed Hysteroscopy, D&C, and Mayra endometrial ablation Surgeon Beronica Palma MD Anesthesia MAC Findings Uterus 10cm; cervix 5cm; normal appearing cavity with bilateral tubal ostia visualized; thickened endometrium on the posterior wall. Endometrial ablation performed without issue; good hemostasis. Description of Procedure Nikki was taken to the operating room where she was placed under sedation without complications. She was then prepped and draped in the usual sterile fashion in the dorsal lithotomy position with her legs in low Brennen stirrups. A time-out was performed and no perioperative antibiotics were indicated. A bivalve speculum was placed within the vagina where the cervix was easily identified. The anterior lip of the cervix was grasped with a single-tooth tenaculum. The cervix was then serially dilated to allow for the hysteroscope. The hysteroscope was advanced into the uterine cavity with the above findings noted. A curettage was then performed until a good uterine cry was felt throughout the uterus. The Mayra endometrial ablation device was then placed within the uterine cavity. The test procedure passed and the ablation was then performed without issue. The device was removed from the cavity. Good hemostasis was noted. All instruments were removed from the vagina. Sponge, lap, instrument, and needle counts were correct at the end of the procedure. Patient was awoken from anesthesia and taken to recovery with plans of same-day discharge home. Estimated Blood Loss 5 IV Fluids 600 (Fluid deficit: 50cc) Pathology Yes (endometrial curettings) Complications No immediate complications Condition Stable Disposition Same day [facility] Billing Surgery - Charge Forward: Surgery Billing
[2023-04-10 13:15] VITALS: BP 96/60; PULSE 68; RESP 16
[2023-04-10] MEDS: oxyCODONE HCL (*CRX) 5 MG TAB IR PO (13:19)
[2023-04-10 13:45] VITALS: BP 102/55; PULSE 63; RESP 16
== END 2023-04-10 14:02 | disposition home or self-care (01) ==
PROVIDERS: Visit Provider Obstetrics & Gynecology
PROC: 0U5B8ZZ Destruction of Endometrium, Via Natural or Artificial Opening Endoscopic (ICD-10-PCS; CPT 58563; principal; 2023-04-10 12:00)
DX: N92.0 Excessive and frequent menstruation with regular cycle (principal); F32.A Depression, unspecified; E66.9 Obesity, unspecified; Z68.31 Body mass index [BMI] 31.0-31.9, adult
CPT/HCPCS: 58563; 88305; A9270; J1885; J2250; J2704; J3010; J7120

== ENCOUNTER 2023-06-26 18:59 | Emergency (ER) | payer BC, OTHER, SELFPAY ==
--- NOTE | ~2023-06-26 | US_ITS ---
EXAMINATION: US pelvic complete w TV DATE: 06/26/2023 22:49 INDICATION: rule out left torsion TECHNIQUE: Multiple transabdominal and endovaginal sonographic images of the pelvis were obtained. COMPARISON: 03/20/2023-images only; OB ultrasound 02/21/2016; CT abdomen pelvis 11/29/2013. FINDINGS: Uterus: 6.5 x 3.2 x 4.2 cm. Heterogeneous myometrium with irregular areas of increased flow. Possible 1.8 cm subserosal fibroid along the anterior uterine body. Possible 1.5 cm subserosal fibroid along the posterior aspect of the uterine body. Ill-defined shadowing echogenic foci within the endometrial space. Endometrial complex measures approximately 5 mm. Right Ovary: 2.2 x 1.5 x 2.4 cm. Vascular flow is present. No adnexal mass. Left Ovary: 2.9 x 1.6 x 2.0 cm. Vascular flow is present. No adnexal mass. There is no free fluid in the pelvis. IMPRESSION: No sonographic evidence of ovarian torsion. Echogenic, shadowing endometrial foci, may represent gas from endometritis, dystrophic calcification from prior procedure/retained products, or less likely hyperechoic foci from adenomyosis, which is al so likely present. Recommend gynecology consultation. Multiple possible subserosal uterine fibroids. Reviewed, dictated and finalized at location K. IMPRESSION: No sonographic evidence of ovarian torsion. Echogenic, shadowing endometrial foci, may represent gas from endometritis, dys trophic calcification from prior procedure/retained products, or less likely hy perechoic foci from adenomyosis, which is also likely present. Recommend gyneco logy consultation. Multiple possible subserosal uterine fibroids.
[2023-06-26 19:17] VITALS: BP 119/80; PULSE 91; RESP 16; TEMP 36.4; O2SAT 100
[2023-06-26 19:30] LABS: Appearance Urine Clear (Clear); Basophils Absolute Auto 0.1 K/mm3 (0.0-0.1); Basophils Percent Auto 0.6 % (0.2-1.2); Bilirubin Urine Negative (Negative); Blood Urine Negative (Negative); Color Urine Yellow (Yellow); Eosinophils Absolute Auto 0.1 K/mm3 (0-0.3); Eosinophils Percent Auto 0.7 % (0-4.4); Glucose Urine UA Negative (Negative); Hematocrit 35.6 % (37.0-47.0); Immature Granulocyte Absolute 0.02 K/mm3 (0.00-0.031); Immature Granulocyte Percent A 0.2 % (0-0.5); Ketones Urine Negative (Negative); Leukocyte Esterase Ur Negative LEU/UL (Negative); Lymphocytes Absolute Auto 2.75 K/mm3 (0.9-3.2); Lymphocytes Percent Auto 34.2 % (18.3-44.2); Mean Corpuscular HGB Conc 30.9 g/dl (32-36); Mean Corpuscular Hemoglobin 25.8 pg (26-34); Mean Corpuscular Volume 83.4 fl (80-100); Monocytes Absolute Auto 0.5 K/mm3 (0.1-0.6); Monocytes Percent Auto 5.7 % (2.6-8.5); Neutrophils Absolute Auto 4.7 K/mm3 (1.3-6.7); Neutrophils Percent Auto 58.6 % (45.5-73.1); Nitrate Urine Negative (Negative); Platelet Count Result 444 k/mm3 (150-375); Protein Urine Negative (Negative); Red Blood Count 4.27 M/mm3 (4.2-5.4); Red Cell Distribution Width 16.2 % (11.5-14.5); Specific Grav Ur 1.021 (1.001-1.035); pH Urine 7.5 (5.0-9.0)
[2023-06-26 19:31] LABS: Add Urine Microscopic? NO
[2023-06-26 19:40] LABS: Alanine Aminotransferase 17 U/L (6-35); Albumin Level 4.4 g/dL (3.5-5.1); Alkaline Phosphatase 112 U/L (38-126); Anion Gap 8 mmol/L (8-16); Aspartate Amino Transferase 22 U/L (14-36); Bilirubin,Total 0.3 mg/dL (0.2-1.3); Blood Urea Nitrogen 17 mg/dL (7-17); Carbon Dioxide 28 mmol/L (22-30); Chloride 102 mmol/L (98-107); Estimated CRCL calculation 84 ml/min; Estimated Glomerular Filt Rate > 60; Glucose 90 mg/dL (65-110); Lipase 100 U/L (23-300); Potassium 3.5 mmol/L (3.4-5.0); Sodium 138 mmol/L (137-145)
--- NOTE | 2023-06-26 20:42 | ED.GENADULT ---
HPI - General Adult General Chief complaint: Abdominal Pain Stated complaint: L ABD PAIN X 2WKS Time Seen by Provider: 06/26/23 20:08 Source: patient Mode of arrival: ambulatory Limitations: no limitations History of Present Illness HPI narrative: This is a 32-year-old female who presents to the ED with chief complaint of left lower abdominal pain ongoing for the past 2 weeks. Patient states the pain is intermittent. She states it is always located in the left lower quadrant and left groin region. She states it feels similar to past episodes of cyst rupture. She states the pain is worse at nighttime and causes some nausea. Denies any vomiting, fevers, problems with bowel movements, urinary symptoms, flank pain. Per chart review, she had recent hysteroscopy and D&C in March 2023. Patient states that she no longer has periods. States she had a tubal ligation done but still has both ovaries. 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 Asthma Depression History of chlamydia 2017 Hx of trichomoniasis 2017 No pertinent past medical history Surgical History Surgical History History of cholecystectomy 01/07/2022 History of hysteroscopy Hscope - DC and Ablation - 04/10/2023 History of orthopedic surgery left arm broken puneet and screws placed 09/10/2021 Previous section primary C/S- lack of progress - completely dilated and was unable to deliver vaginally after pushing S/P repeat low transverse repeat xs 2 07/2010 & 05/2022 S/P tubal ligation 06/15/2022 - C- section and tubal Family History Family History Mother Hypertension Social History Social History Smoking status: Never smoker Alcohol intake: current Drinks per week: 1 Substance use: never Substance use type: does not use Living arrangements: with family Additional living arrangements comments: Occupation/Education: occupation Additional occupation/education comments: quality Gender identity (if verbalized by the patient): Female Sexual Orientation (if Verbalized by the Patient): Straight or Heterosexual Spiritual care concerns: No Exam Narrative: GENERAL: Well-appearing, well-nourished, and in no acute distress. HEAD: Normocephalic, atraumatic. EYES: PERRLA and EOMI. ENT: Nares clear, no rhinorrhea or epistaxis. Mucous membranes moist. Oropharynx without tonsillar hypertrophy exudate or other lesions. NECK: Supple. No adenopathy or masses. CHEST: No respiratory distress. Clear to auscultation. No wheezes rales or rhonchi HEART: Regular rate and rhythm. No murmur heard. Normal peripheral pulses. ABDOMEN: Left lower quadrant tenderness present. Soft, nontender, nondistended, normal active bowel sounds. MSK: Normal range of motion. No edema. SKIN: Warm, dry, no rash. NEURO: Alert and oriented x3. No focal deficits. PSYCH: Normal mood and affect. Course Vital Signs Vital signs: Vital Signs Temperature 97.6 F 06/26/23 19:17 Pulse Rate 91 06/26/23 19:17 Respiratory Rate 16 06/26/23 19:17 Blood Pressure 119/80 06/26/23 19:17 Pulse Oximetry 100 06/26/23 19:17 Oxygen Delivery Room Air 06/26/23 19:17 Temperature 97.8 F 06/26/23 23:50 Pulse Rate 74 06/26/23 23:50 Respiratory Rate 15 06/26/23 23:50 Blood Pressure 127/55 L 06/26/23 23:50 Pulse Oximetry 99 06/26/23 23:50 Oxygen Delivery Room Air 06/26/23 19:17 Medical Decision
[2023-06-26] MEDS: ONDANSETRON INJ 4 MG/2 ML VIAL IV PUSH (21:09)
[2023-06-26] MEDS: MORPHINE SULFATE (*CRX) 4 MG/ML INJ IV PUSH (21:10)
--- NOTE | 2023-06-26 22:01 | PC.NURSE ---
Pt was taken to US at this time by tech.
--- NOTE | 2023-06-26 23:11 | PC.NURSE ---
returned to room from US at this time
[2023-06-26 23:50] VITALS: BP 127/55; PULSE 74; RESP 15; TEMP 36.6; O2SAT 99
== END 2023-06-26 23:51 | disposition home or self-care (01) ==
PROVIDERS: Emergency Medicine; Emergency Provider Physician Assistant
DX: R10.32 Left lower quadrant pain (principal); J45.909 Unspecified asthma, uncomplicated; Z90.49 Acquired absence of other specified parts of digestive tract; R93.89 Abnormal findings on diagnostic imaging of other specified body structures
CPT/HCPCS: 36415; 76830; 76856; 80053; 81003; 81025; 83690; 85025; 96374; 96375; 99284; J2270; J2405

== ENCOUNTER 2023-08-21 15:38 | Outpatient (CLI) | payer BC, SELFPAY | END 2023-08-21 15:39 | disposition home or self-care (01) | LOC: ANHLAB 15:40 | PROVIDERS: Visit Provider Anesthesiology | DX: D25.9 Leiomyoma of uterus, unspecified (principal); Z01.818 Encounter for other preprocedural examination | CPT/HCPCS: 36415; 86850; 86880; 86900; 86901; 86902; 86922 ==

== ENCOUNTER 2023-08-28 03:14 | Day surgery (SDC) | payer BC, SELFPAY ==
[2023-08-18 14:54] VITALS: BMI 31.8
--- NOTE | 2023-08-18 14:58 | PC.NURSE ---
Report to the Outpatient Waiting Room, entrance under the green pavilion located off [facility], at time 8:00 on date 08/28/23. Planned Procedure Time: 10:00. Time changes happen often and if your time is changed the preop area will call you the afternoon before. - You and your visitor will be asked to self-screen and do not enter if you have any COVID symptoms. - A mask is optional within the hospital at this time. Patients may have clear liquids (water, carbonated beverages, clear teas, apple juice) until 3 hours prior to surgery (7:00) with a maximum of 20 ounces. - No food from midnight until time of surgery Take the following medications with a SIP of water the morning of surgery: N/A DO NOT STOP ANY OF YOUR OTHER PRESCRIPTION MEDICATIONS PRIOR TO SURGERY ?EXCEPT THE FOLLOWING Medications to discontinue per physician: N/A Date to take last dose: N/A Please no make-up, nail egyptian, hairspray, perfume, deodorant, or body powder the day of surgery. No jewelry (including any body piercings) or valuables the day of surgery, leave them at home. Please take a shower or bath the night before, or the morning of, surgery with an antibacterial soap. Wear comfortable, loose fitting clothing. - Jewelry must be removed prior to entering the operating room. Rings and piercings that are not removed may be cut off. - The hospital will not accept responsibility for valuables. - Please leave all valuables, including medications, at home the day of surgery. If you are going home after surgery, a licensed transporter driver must drive you home. - NO public transportation without another adult if you receive anesthesia. - We recommend that an adult stay with you for 24 hours following discharge. - We also recommend that you do not drive, make important decision, drink alcoholic beverages, or take any drugs that were not prescribed by your health care provider for at least 24 hours after your discharge time. Follow any additional instructions given to you from your surgeon. If you or anyone in your household have experienced Covid symptoms in the past week, please notify your surgeon or the nurse liaison at the phone number below for possible testing. Telephone instructions given to PT - SUZY SOLANO and asked if any additional questions and then verbalized understanding. Patient advised to call surgeon office or pre surgery nurse liaison [phone] if any additional questions.
--- NOTE | 2023-08-27 14:56 | PM.IMHP ---
H&P: HPI History of Present Illness Date/Time: 08/27/23 14:56 Chief Complaint: AUB/pelvic pain Narrative: Nikki is a 32yo [id number], who presents for scheduled surgery. She went to the ER in June 2023. She reports the pain is always LLQ and a very sharp/stabbing sensation. It woke her up in the middle of the night and she could not go back to sleep. She has been taking ibuprofen but it doesn't seem to be helping now. She did have HSC/D&C/ablation on 04/10/23. She has a h/o x3 with tubal. She is not having any bleeding since her ablation. She denies any fever, chills, vaginal discharge/odor. Normal bowel/bladder function. 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 Her uterus does show adenomyosis with fibroids. She is tired of the pain as it has occurred almost monthly since her (always the left side), but significantly worsened since her ablation in March 2023. She is wanting to proceed with definitive surgical management for her pain as she cannot keep taking off work for this. Review of Systems Constitutional: Constitutional: Denies chills, Denies fever(s) and Denies headache(s) Eyes: Eyes: Denies change in vision ENT: Denies dizziness and Denies headache(s) Cardiovascular: Cardiovascular: Denies chest pain and Denies dyspnea Respiratory: Respiratory: Denies cough and Denies dyspnea Gastrointestinal: Gastrointestinal: Denies abdominal pain and Denies change in stool character Genitourinary: Genitourinary: Denies abnormal menses, Denies pelvic pain, Denies vaginal discharge, Denies vaginal odor and Denies vaginal pruritus Neurologic: Denies dizziness and Denies headache(s) Psychiatric: Psychiatric: Denies anxiety and Denies depression [facility] Past Medical History Medical History 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 Asthma Depression History of chlamydia 2017 Hx of trichomoniasis 2017 No pertinent past medical history Surgical History Surgical History History of cholecystectomy 01/07/2022 History of hysteroscopy Hscope - DC and Ablation - 04/10/2023 History of orthopedic surgery left arm broken puneet and screws placed 09/10/2021 Previous section primary C/S- lack of progress - completely dilated and was unable to deliver vaginally after pushing S/P repeat low transverse repeat xs 2 07/2010 & 05/2022 S/P tubal ligation 06/15/2022 - C- section and tubal Family History Family History Mother Hypertension Social History Social History (Updated 06/28/23 @ 16:32 by Sadia Angulo MA) Smoking status: Never smoker Alcohol intake: current Drinks per week: 2 Substance use: never Substance use type: does not use Current Housing: Decline to Answer Concerned About Future Housing: Decline to Answer Difficulty Paying Gas/Electric Bills: Decline to Answer Difficulty Paying for Meds: Decline to Answer Currently Unemployed: Decline to Answer Education: Decline to Answer Difficulty w/ Childcare or Family Care: Decline to Answer Living arrangements: with family Additional living arrangements comments: CHILDREN Occupation/Education: occupation Additional occupation/education comments: quality Gender identity (if verbalized by the patient): Female Sexual Orientation (if Verbalized by the Patient): Straight or Heterosexual Spiritual care concerns: No Meds Home Medications and Allergies Home Medications Medication Instructions Recorded Confirmed Type No Home Medications 08/18/23 08/18/23 History Allergies Allergy/AdvReac Type Severity Reaction Status Date / Time No Known Allergies Allergy Verified 08/18/23 14:53 Exam Const: General: cooperative, healthy appearing, comfortable, no acute distress and obese Orientation/cons
[2023-08-28] VITALS (11 sets, daily range): BP systolic 96–121; BP diastolic 46–73; PULSE 63–108; RESP 14–20; TEMP 36.2–37.2; O2SAT 94–100; BMI 32.1
--- NOTE | 2023-08-28 07:10 | WPDHPUPDATE1 ---
History and Physical Update Update Date/Time: 08/28/23 07:10 History and Physical has been reviewed, including an updated exam of the patient. There are NO changes in the patient's condition. Risks, benefits, and alternatives have been discussed and questions answered. Patient agrees to proceed with robotic assisted total laparoscopic hysterectomy, bilateral salpingectomy, cystoscopy, with possible left oophorectomy.
[2023-08-28] MEDS: LACTATED RINGERS 1,000 ML 30 ML IV CONT ×2 (08:20→12:20)
[2023-08-28] MEDS: ACETAMINOPHEN 500 MG TABLET 1000 MG PO ×2 (08:26→21:03)
[2023-08-28] MEDS: KETOROLAC 15 MG/ML VIAL (*BKC) IV PUSH (08:27)
--- NOTE | 2023-08-28 09:08 | WPDANESEPPF ---
Anes - Initial Pre Proc Eval Procedure: Operation Date: 08/28/23 10:00 Proposed Procedures p Robotic Assisted Total Laparoscopic Hysterectomy, Possible Left Oophorectomy, - Beronica Palma MD s Cystoscopy - Beronica Palma MD Date/Time: 08/28/23 09:08 Surgeon: Beronica Palma MD Pre Op Diagnosis: uterine fibroid Patient Data Age: 32 Gender: F Height: 1.59 m Weight: 80.8 kg Last Vital Signs Temp 36.5 C 08/28/23 07:50 Pulse 73 08/28/23 07:50 Resp 16 08/28/23 07:50 BP 118/73 08/28/23 07:50 Pulse Ox 95 08/28/23 07:50 O2 Del Method Room Air 08/28/23 07:50 Allergies Allergy/AdvReac Type Severity Reaction Status Date / Time No Known Allergies Allergy Verified 08/28/23 08:40 Home Medications Medication Instructions Recorded Confirmed Type No Home Medications 08/18/23 08/18/23 History Patient hx anesthesia problems: none Family hx anesthesia problems: none Results Review: All pre-operative results and documents have been reviewed as part of the pre-operative evaluation. 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 Asthma Depression History of chlamydia 2017 Hx of trichomoniasis 2017 No pertinent past medical history Surgical History Surgical History History of cholecystectomy 01/07/2022 History of hysteroscopy Hscope - DC and Ablation - 04/10/2023 History of orthopedic surgery left arm broken puneet and screws placed 09/10/2021 Previous section primary C/S- lack of progress - completely dilated and was unable to deliver vaginally after pushing S/P repeat low transverse repeat xs 2 07/2010 & 05/2022 S/P tubal ligation 06/15/2022 - C- section and tubal Family History Family History Mother Hypertension Social History Social History Smoking status: Never smoker Alcohol intake: current Drinks per week: 2 Substance use: never Substance use type: does not use Current Housing: Decline to Answer Concerned About Future Housing: Decline to Answer Difficulty Paying Gas/Electric Bills: Decline to Answer Difficulty Paying for Meds: Decline to Answer Currently Unemployed: Decline to Answer Education: Decline to Answer Difficulty w/ Childcare or Family Care: Decline to Answer Living arrangements: with family Additional living arrangements comments: CHILDREN Occupation/Education: occupation Additional occupation/education comments: quality Gender identity (if verbalized by the patient): Female Sexual Orientation (if Verbalized by the Patient): Straight or Heterosexual Spiritual care concerns: No Anes - Eval Final PreProcedure Day of Procedure 08/28/23 09:08 Patient weight: obese Heart: regular rate and rhythm Lungs: clear to auscultation Airway: Mallampati scale class II Neurological: alert and oriented Last oral intake: >/= 8 hours ASA classification: II Emergent: no Anesthetic plan: proceed Anesthesia type and monitoring: general ETT and standard monitoring Results Review: All pre-operative results and documents have been reviewed as part of the pre-operative evaluation. Informed Consent: The patient's anesthetic plan and its attendant risks and benefits were discussed with the patient/family/POA. Questions were solicited and answers provided to the satisfaction of the patient/family/POA.
[2023-08-28] MEDS: ceFAZolin 2 GM/D5W 50 ML 2 GM/50 ML BAG IVPB (09:37)
[2023-08-28] MEDS: metroNIDAZOLE 500 MG/ISO 100ML 500 MG/100 ML BAG 100 MG IVPB (09:45)
[2023-08-28] MEDS: METHYLENE BLUE 0.5% INJ 10 ML AMPULE 20 ML IRRIGATION (10:45)
[2023-08-28] MEDS: LIDO 1%/EPINEPHRINE 1:100,000 50 ML VIAL 20 ML INFILTRATE (10:45)
[2023-08-28 11:08] LABS: Chlamydia trachomatis NOT DETECTED (NOT DETECTE); Neisseria gonorrhoeae PCR NOT DETECTED (NOT DETECTE)
--- NOTE | 2023-08-28 12:17 | W.PM.PROC2 ---
Procedure Note - Detailed Date of Procedure 08/28/23 Pre-op Diagnosis AUB pelvic pain Post-op Diagnosis Same Procedure Performed Robotic assisted supracervical hysterectomy, bilateral salpingectomy, lysis of adhesions, and cystoscopy Surgeon Beronica Palma MD [employer] House Supervisor Madhav Anesthesia General and Local (17cc of 1% lido w/ epi) Findings Uterus sounded to 8cm; cervix 2.5cm-- anteriorly fixed. Dense adhesions of the omentum to the anterior abdominal wall which were taken down. The uterus was fixed anteriorly with adhesions to the fundus, unable to remove the cervix safely. The bladder was back filled with methylene blue to better visualize and prevent injury. Bilateral ovaries w/o abnormalities; h/o tubal ligation and remaining remnants were removed. Good hemostasis at end of the case. Bladder easily filled without defects; bilateral ureteral effluxes noted. Description of Procedure Nikki was taken to the operating room where she was placed under general anesthesia without issues. She received 2 g Ancef and 500mg Flagyl. She was then prepped and draped in the usual sterile fashion in the dorsal lithotomy position with her legs in low Brennen stirrups, her arms tucked at her side, and a strap over her chest. A time-out was performed. My attention was turned down below where a cuadra catheter was placed. A bivalve speculum was placed within the vagina. The cervix was very anterior (behind the pubic bone) and the anterior lip of the cervix was grasped with single-tooth tenaculum. The uterus was then sounded to 9cm. The cervix was serially dilated to allow for the DEIRDRE uterine manipulator; which was placed w/o issue (6cm tip with 2.5cm cervical ring). My gloves were changed and attention was then turned to the abdomen. A supraumbilical incision was made, and a 5 mm trocar was placed under direct visualization. Once intra-abdominal placement was confirmed, the abdomen was insufflated with carbon dioxide gas. An abdominal survey was performed and the above findings were noted. Two additional ports were placed on the right side and one port on the left side under direct visualization without issues. The patient was then placed in steep Trendelenburg, with the legs slightly lowered. It was then noted that the uterine manipulator was only in the cervix. I removed the device and released pneumoperitoneum to better visualize the cervix. I then placed the manipulator once again; this time with an 8cm tip. When pneumoperitoneum was obtained and it was noted that I perforated the uterus, but minimal bleeding was noted. The robot was then docked. The instruments were placed intra-abdominally under direct visualization. I then un-scrubbed and went to the robotic console. The omental adhesions were taken down and revealed that there were dense uterine adhesions to the anterior abdominal wall all the way to the fundus of the uterus. These were taken down very slowly (took over 30 minutes) using the monopolar scissors without complication. I slowly started taking the adhesions down and normalizing the anatomy; was able to find small areas of filmy adhesions and identified the bilateral round ligaments. The bladder adhesions to the mid uterus were very dense and I then back filled the bladder with 150cc of normal saline and methylene blue. I then started my hysterectomy on the left side. The ureter was easily identified transperitoneally and well out of the surgical field. The round ligament was clamped, coagulated, and transected. The uterine ovarian artery was then serially clamped, coagulated, and transected with good hemostasis. What remained of the broad ligament was then dissected anteriorly and posteriorly skeletonizing the uterine artery. The bladder flap could not be fully developed due to the dense adhesions and I decided to proceed with supracervical hysterectomy. The uterine artery was then serially clamped and coagulated. Once the vessel was adequately coagulated, it
[2023-08-28] MEDS: fentaNYL CITRATE INJ (*CRX) 100 MCG/2 ML VIAL 25 MCG IV PUSH ×2 (13:19→13:22)
[2023-08-28] MEDS: KETOROLAC 30 MG/ML VIAL (*BKC) IV PUSH ×2 (13:59→21:04)
[2023-08-28] MEDS: DEXTROSE 5%/LACTATED RINGERS 1,000 ML 75 ML IV CONT (14:00)
--- NOTE | 2023-08-28 14:26 | OBPPTRN ---
0535 Patient transferred to post room #284 via bed. Support person present. Oriented to unit, room, information board, admission packet and security measures. Patient verbalizes understanding.
[2023-08-28] MEDS: oxyCODONE HCL (*CRX) 5 MG TAB IR PO ×2 (16:34→21:03)
[2023-08-28] MEDS: DOCUSATE SODIUM 100 MG CAPSULE PO (16:34)
[2023-08-28] MEDS: SIMETHICONE 80 MG TAB.CHEW PO ×3 (16:34→23:45)
[2023-08-29] MEDS: SIMETHICONE 80 MG TAB.CHEW PO ×2 (03:22→07:17)
[2023-08-29] MEDS: ACETAMINOPHEN 500 MG TABLET 1000 MG PO ×2 (03:23→10:26)
[2023-08-29] MEDS: IBUPROFEN 600 MG TABLET PO ×2 (03:23→10:27)
[2023-08-29 03:25] VITALS: BP 103/50; PULSE 71; RESP 16; TEMP 36.3
[2023-08-29 04:23] LABS: Basophils Percent Auto 0.1 % (0.2-1.2); Hematocrit 30.1 % (37.0-47.0); Hemoglobin 9.5 g/dL (12.0-15.0); Immature Granulocyte Absolute 0.05 K/mm3 (0.00-0.031); Immature Granulocyte Percent A 0.3 % (0-0.5); Lymphocytes Percent Auto 9.7 % (18.3-44.2); Mean Corpuscular HGB Conc 31.6 g/dl (32-36); Mean Corpuscular Hemoglobin 26.7 pg (26-34); Mean Corpuscular Volume 84.6 fl (80-100); Mean Platelet Volume 10.7 fl (7.4-10.4); Monocytes Absolute Auto 0.7 K/mm3 (0.1-0.6); Monocytes Percent Auto 4.9 % (2.6-8.5); Neutrophils Absolute Auto 12.2 K/mm3 (1.3-6.7); Platelet Count Result 329 k/mm3 (150-375); Red Blood Count 3.56 M/mm3 (4.2-5.4); Red Cell Distribution Width 16.1 % (11.5-14.5); White Blood Count 14.4 K/mm3 (4.5-10.0)
[2023-08-29 04:33] LABS: Anion Gap 3 mmol/L (8-16); Blood Urea Nitrogen 9 mg/dL (7-17); Calcium 8.5 mg/dL (8.4-10.2); Carbon Dioxide 26 mmol/L (22-30); Chloride 104 mmol/L (98-107); Estimated CRCL calculation 86 ml/min; Estimated Glomerular Filt Rate > 60; Glucose 108 mg/dL (65-110); Sodium 133 mmol/L (137-145)
--- NOTE | 2023-08-29 06:07 | PM.GYNPNOP ---
SODA FOUNTAIN OPERATOR - A/P Assessment and plan (1) S/P laparoscopic supracervical hysterectomy: Code(s): Z90.711 - Acquired absence of uterus with remaining cervical stump Status: Acute Postoperative Procedures: Procedures Operation Date: 08/28/23 10:00 Actual Procedure Side Surgeon p Robotic Assisted Total Laparoscopic Supracervical Hysterectomy with Bilateral Salpingectomy, Lysis of Adhesions Bilateral Beronica Palma MD s Cystoscopy Not Applicable Beronica Palma MD Postoperative day: 1 Postoperative status: doing well Postoperative plan: routine post-op care and discharge Time Spent With Patient Time: Total time spent is greater than 50% in coordination of care (as documented) at patient's floor/unit and/or counseling patient: Time with patient: less than 15 minutes SODA FOUNTAIN OPERATOR- PN:Subj Post-Op Subjective Date/time seen: 08/29/23 07:07 Interval history: POD#1 Nikki reports doing well today. No issues overnight. Her pain has been controlled with PO meds, hurting now but hasn't had any pain meds in 6 + hours. She has tolerated regular diet. She denies any vaginal bleeding. She has voided. She has passed flatus. She has ambulated and denies any symptoms of anemia. Review of Systems Review of Systems: All systems reviewed & are unremarkable except as noted in HPI and below (HPI) Constitutional: Constitutional: Denies chills, Denies fever(s) and Denies headache(s) Eyes: Eyes: Denies change in vision ENT: Denies dizziness and Denies headache(s) Cardiovascular: Cardiovascular: Denies chest pain and Denies rapid heart rate Respiratory: Respiratory: Denies cough Genitourinary: Genitourinary: Denies abnormal vaginal bleeding Neurologic: Denies dizziness and Denies headache(s) Exam Const: General: cooperative, healthy appearing, comfortable and no acute distress Orientation/consciousness: patient oriented x3 Resp: Effort & Inspection: normal respiratory effort Auscultation: clear to auscultation bilaterally Cardio: Rate: regular rate GI: Inspection: normal to inspection and incision (5 LSC incisions ) GI Palp: Yes abdominal tenderness (appropriate) and Yes Soft to palpation Auscultation: normal bowel sounds : Other: normal bleeding on pad Skin: General skin exam: normal color Neuro: General: patient oriented x3 Psych: Appearance: grossly normal Affect: normal affect Attitude: cooperative SODA FOUNTAIN OPERATOR - PN: Obj Data Vital Signs Vital Signs: Vital Signs - 24 hr 08/28/23 07:50 08/28/23 12:20 08/28/23 12:50 Temperature 97.7 F 97.2 F L Pulse Rate 73 108 H 93 Respiratory Rate 16 20 18 Blood Pressure 118/73 112/55 L 101/49 L Pulse Oximetry 95 100 100 Oxygen Delivery Room Air Simple Face Mask Room Air Oxygen Flow Rate 6 08/28/23 13:05 08/28/23 13:20 08/28/23 13:28 Temperature 98.9 F Pulse Rate 86 82 73 Respiratory Rate 16 16 14 Blood Pressure 104/61 96/55 L 106/53 L Pulse Oximetry 100 96 94 Oxygen Delivery Room Air Room Air Room Air Oxygen Flow Rate 08/28/23 12:35 08/28/23 13:40 08/28/23 13:36 Temperature 98.6 F Pulse Rate 79 85 Respiratory Rate 18 16 Blood Pressure 105/55 L 109/65 Pulse Oximetry 100 100 Oxygen Delivery Simple Face Mask Room Air Oxygen Flow Rate 6 08/28/23 15:50 08/28/23 15:50 08/28/23 21:00 Temperature 97.9 F 97.6 F Pulse Rate 75 63 Respiratory Rate 16 20 Blood Pressure 115/69 121/67 Pulse Oximetry 97 Oxygen Delivery Room Air Oxygen Flow Rate 08/28/23 23:45 08/29/23 03:25 Temperature 98.5 F 97.4 F L Pulse Rate 69 71 Respiratory Rate 16 16 Blood Pressure 105/46 L 103/50 L Pulse Oximetry Oxygen Delivery Oxygen Flow Rate Intake/Output Intake/Output: Intake & Output 08/26/23 08/27/23 08/28/23 08/29/23 23:59 23:59 23:59 23:59 Intake Total 3680 Output Total 1930 Balance 1750 Meds/Results Medications: Active Medications Generic Name Dose Route Start Last Admin Trade Name Jillian Mireles
[2023-08-29] MEDS: DOCUSATE SODIUM 100 MG CAPSULE PO (07:17)
[2023-08-29] MEDS: oxyCODONE HCL (*CRX) 5 MG TAB IR 10 MG PO (07:21)
[2023-08-29 07:50] VITALS: BP 106/66; PULSE 65; RESP 16; TEMP 36.7; O2SAT 100
== END 2023-08-29 10:30 | disposition home or self-care (01) ==
LOC: ANHSURGERY 07:42 → ANHOB2 13:30
PROVIDERS: Visit Provider Obstetrics & Gynecology
PROC: (CPT 58542; principal; 2023-08-28 10:00)
PROC: 0TJB8ZZ Inspection of Bladder, Via Natural or Artificial Opening Endoscopic (ICD-10-PCS; CPT 52000; 2023-08-28 10:00)
DX: N93.9 Abnormal uterine and vaginal bleeding, unspecified (principal); R10.2 Pelvic and perineal pain; N73.6 Female pelvic peritoneal adhesions (postinfective); N80.03 Adenomyosis of the uterus; N99.85 Post endometrial ablation syndrome; G89.29 Other chronic pain; E66.9 Obesity, unspecified; Z68.32 Body mass index [BMI] 32.0-32.9, adult
CPT/HCPCS: 58542; S2900; 36415; 80048; 85025; 87491; 87591; 88307; 99199; A9270; J0690; J1100; J1170; J1836; J1885; J2250; J2405; J2704; J3010; J7030; J7120; J7121; Q9968

== ENCOUNTER 2024-02-29 09:05 | Emergency (ER) | payer BC, SELFPAY ==
--- NOTE | ~2024-02-29 | XR_ITS ---
Cervical Spine: AP, lateral, open-mouth views Clinical History: Pain Findings: There is reversal of the normal cervical lordosis. The vertebral bodies and posterior [place] ents appear intact. The intervertebral disc spaces are well maintained. Pre-vertebral soft tissues a re unremarkable. Impression: Reversal of the normal cervical lordosis, otherwise unremarkable exam. Reviewed, dictated and finalized at [facility]. Impression: Reversal of the normal cervical lordosis, otherwise unremarkable exam.
[2024-02-29 09:23] VITALS: BP 110/69; PULSE 87; RESP 16; TEMP 36.9; O2SAT 98
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
== END 2024-02-29 10:22 | disposition home or self-care (01) ==
PROVIDERS: Emergency Provider Registered Nurse
DX: S16.1XXA Strain of muscle, fascia and tendon at neck level, initial encounter (principal); V40.5XXA Car driver injured in collision with pedestrian or animal in traffic accident, initial encounter; G44.319 Acute post-traumatic headache, not intractable; J45.909 Unspecified asthma, uncomplicated
CPT/HCPCS: 72040; 99213; G0463

== ENCOUNTER 2024-03-14 14:29 | Outpatient (CLI) | payer BC, SELFPAY ==
[2024-03-14 18:34] LABS: Alanine Aminotransferase 15 U/L (6-35); Albumin Level 4.3 g/dL (3.5-5.1); Alkaline Phosphatase 94 U/L (38-126); Aspartate Amino Transferase 24 U/L (14-36); Bilirubin,Total 0.5 mg/dL (0.2-1.3)
== END 2024-03-14 14:30 | disposition home or self-care (01) ==
LOC: ANHLAB 14:31
PROVIDERS: Visit Provider Podiatrist Foot & Ankle Surgery
DX: B35.1 Tinea unguium (principal)
CPT/HCPCS: 36415; 80076

== ENCOUNTER 2024-03-20 16:49 | Outpatient (CLI) | payer BC, SELFPAY ==
[2024-03-20 17:59] LABS: HIV 1/2 Ab P24 Ag Result Negative (Negative)
[2024-03-20 18:13] LABS: Hepatitis B Surface Antigen Negative (Negative)
[2024-03-20 18:18] LABS: HAV RESULT Negative (Negative)
[2024-03-20 18:30] LABS: Hepatitis C Virus Antibody Negative (Negative)
[2024-03-21 18:31] LABS: Rapid Plasma Reagin Non-Reactive (NonReactive)
== END 2024-03-20 16:50 | disposition home or self-care (01) ==
LOC: ANHLAB 16:51
PROVIDERS: Visit Provider Obstetrics & Gynecology
DX: Z11.3 Encounter for screening for infections with a predominantly sexual mode of transmission (principal)
CPT/HCPCS: 36415; 86592; 86703; 86709; 86803; 87340; G0432

== ENCOUNTER 2024-05-27 14:30 | Emergency (ER) | payer BC, SELFPAY ==
--- NOTE | 2024-05-27 14:42 | ED.FEMALEGU ---
HPI - Female Genitourinary General Chief complaint: Urogenital-Female Stated complaint: BURNING URINATION Time Seen by Provider: 05/27/24 14:52 Source: patient, RN notes reviewed and old records reviewed Mode of arrival: ambulatory Limitations: no limitations History of Present Illness HPI Narrative: 33 year old female who presents to [facility] care with complaints of urinary urgency and some intermittent right flank pain. Patient reports that she has some perineal burning and itching, denies any vaginal discharge. Patient reports that she had unprotected sexual intercourse with different partner and wants testing for STD's today along with urine test. MD elicited complaint: UTI Onset (ago): day(s) (day2 of symptoms) Location of symptoms: perineum and flank (right) Severity: mild Consistency: intermittent Vaginal discharge: none Vaginal bleeding: none Urinary symptoms: Urgency and Flank Pain (right) Treatment prior to arrival: acetaminophen Sexual activity: Yes and New Sexual Partners Related Data Home Medications Medication Instructions Recorded Confirmed escitalopram oxalate 10 mg tablet 10 mg PO DAILY 03/20/24 05/27/24 (Lexapro) Allergies Allergy/AdvReac Type Severity Reaction Status Date / Time No Known Allergies Allergy Verified 05/27/24 14:37 Review of Systems Review of Systems: CONSTITUTIONAL: Denies fever, chills, or sweats. CARDIOVASCULAR: Denies chest pain, palpitations, or edema. RESPIRATORY: Denies cough or dyspnea. GASTROINTESTINAL: Denies abdominal pain, nausea, vomiting, or diarrhea. GENITOURINARY: Reports no dysuria,no frequency, positive for urgency. States intermittent right flank pain no hematuria. burning to perineal area and itching. SKIN: Denies rash or itching. MUSCULOSKELETAL: Denies back pain or myalgia. 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 Asthma Depression History of chlamydia 2017 Hx of trichomoniasis 2017 No pertinent past medical history Surgical History Surgical History History of cholecystectomy 01/07/2022 History of gynecologic surgery Robotic assisted supracervical hysterectomy, bilateral salpingectomy, lysis of adhesions, and cystoscopy History of hysteroscopy Hscope - DC and Ablation - 04/10/2023 History of orthopedic surgery left arm broken puneet and screws placed 09/10/2021 Previous section primary C/S- lack of progress - completely dilated and was unable to deliver vaginally after pushing S/P repeat low transverse repeat xs 2 07/2010 & 05/2022 S/P tubal ligation 06/15/2022 - C- section and tubal Family History Family History Mother Hypertension Social History Social History Smoking status: Never smoker Alcohol intake: current Drinks per week: 2 Substance use: never Substance use type: does not use Current Housing: Decline to Answer Concerned About Future Housing: Decline to Answer Difficulty Paying Gas/Electric Bills: Decline to Answer Difficulty Paying for Meds: Decline to Answer Currently Unemployed: Decline to Answer Education: Decline to Answer Difficulty w/ Childcare or Family Care: Decline to Answer Living arrangements: with family Additional living arrangements comments: CHILDREN Occupation/Education: occupation 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
[2024-05-27 14:49] LABS: EDUAAPPEAR Clear; EDUABILI Negative; EDUABLOOD Trace; EDUACOLOR1 Yellow; EDUAGLUCOSE Negative; EDUAKETONE Trace; EDUALEUKO Negative; EDUANITRATE Negative; EDUAPH 6.5; EDUAPROTEIN Negative; EDUASPGRAVITY 1.025; EDUAUROBILI 0.2
[2024-05-27 15:04] VITALS: BP 129/71; PULSE 86; RESP 16; TEMP 36.9; O2SAT 98
[2024-05-27 21:11] LABS: Trichomonas Vag PCR NOT DETECTED (NOT DETECTE)
[2024-05-27 21:35] LABS: Chlamydia trachomatis NOT DETECTED (NOT DETECTE); Neisseria gonorrhoeae PCR NOT DETECTED (NOT DETECTE)
== END 2024-05-27 15:08 | disposition home or self-care (01) ==
PROVIDERS: Emergency Provider Registered Nurse; PCP Obstetrics & Gynecology
DX: R39.15 Urgency of urination (principal); Z11.3 Encounter for screening for infections with a predominantly sexual mode of transmission; J45.909 Unspecified asthma, uncomplicated; F32.A Depression, unspecified
CPT/HCPCS: 81003; 87086; 87088; 87491; 87591; 87661; 99213; 99214; G0463

== ENCOUNTER 2025-03-13 14:26 | Emergency (ER) | payer BC, SELFPAY ==
--- NOTE | ~2025-03-13 | CT_ITS ---
CT abdomen pelvis wo con Ordering provider: Vivian Norman History: 34 years Female with . R flank pain . Comparison: November 29, 2013 Technique: CT abdomen and pelvis without IV and without oral contrast. Automated exposure control and iterative reconstruction technique were employed. The dose-length product was 575.45 mGy-cm. Findings: VISUALIZED LOWER CHEST: Dependent atelectatic changes. UPPER ABDOMINAL ORGANS: Liver: Normal. Gallbladder: Status post cholecystectomy. Spleen: Normal. Stomach/duodenum: Normal. Pancreas: Normal. Adrenals: Normal. Kidneys: Normal. PELVIC ORGANS: The bladder is underfilled with thickened wall. Evaluation for cystitis advised. BOWEL AND MESENTERY: Colon: No evidence of diverticulitis.. Minimal fat stranding is seen in the area around the rectum wi th slight thickening of the wall which may indicate proctitis. Clinical correlation advised. Normal a ppendix. Small Bowel: Normal. No obstruction. Peritoneum/mesentery: No free air or free fluid. No mesenteric lymphadenopathy. RETROPERITONEUM: Normal aorta. No retroperitoneal lymphadenopathy. MUSCULOSKELETAL: Superficial soft tissues: Small fat-containing umbilical hernia. Otherwise, The superficial soft tiss ues are normal. Bones: Degenerative disc disease at the level of L5-S1. Otherwise, Normal spine. IMPRESSION: 1. No evidence of appendicitis, diverticulitis or intestinal obstruction. No kidney or ureteric ston es. 2. Minimal fat stranding around the rectum with slight wall thickening which may indicate proctitis. Clinical correlation advised. 3. The urinary bladder is underfilled with thickened wall. Evaluation for cystitis advised. 4. Fat-containing small umbilical hernia. Reviewed, dictated and finalized at location A. IMPRESSION: 1. No evidence of appendicitis, diverticulitis or intestinal obstruction. No k idney or ureteric stones. 2. Minimal fat stranding around the rectum with slight wall thickening which m ay indicate proctitis. Clinical correlation advised. 3. The urinary bladder is underfilled with thickened wall. Evaluation for cyst itis advised. 4. Fat-containing small umbilical hernia.
--- OUTSIDE RECORDS SUMMARY | 2025-03-13 14:38 | XMS_ITS | Clinical Summary ---
Author Organization [facility] Address [facility] [place] [address] Care Team Providers Care Terrazzo Finisher Helper Name Role Phone Unavailable Primary Care Provider [...] 2018 COVID-19 Vaccine (2023-2 5 season) 2024 HPV Vaccines Aged Out No longer eligi ble based on patient's age to complete this topic Meningococcal B Vaccine Aged Out No l onger eligible based on patient's age to complete this topic Meningococcal Vaccine Aged Out No kashif tiffanie eligible based on patient's age to complete this topic Pneumococcal Vaccine: Pediat rics (0 to 5 Years) and At-Risk Patients (6 to 49 Years) Aged Out No longer eligible b ased on patient's age to complete this topic RSV Immunizations Under 20 Months Aged Out No longer eligible based on patient's age to complete this topic
--- OUTSIDE RECORDS SUMMARY | 2025-03-13 14:38 | XMS_ITS | Clinical Summary ---
Author Organization [facility] [employer] Address [address] [place] [address] Care Team Providers Care Nipple Maker Name Role Phone Unavailable Primary Care Provider Unavailabl e Source Comments [facility] [employer],non-owned Affiliates and Associated Physician Practices is amultiple site organization consisting of ambulatory clinics and hospital sitesin [place], [place], [place] and [place]. This disclosure is being madepursuant to the Care Everywhere program and may not contain all information available regarding this patient. Last updated 18.[facility] [employer] Allergies No known active allergies Medications * Be aware that medications may not be up to date on this document. Alwaysverify current medications with the patient. ferrous sulfate 325 (65 FE) MG tablet Take 325 mg by mouth daily with breakfast 2 Active ondansetron (ZOFRAN) 4 MG tablet Take [...] drink = 0.6 oz pur e alcohol) Comments No Sex and Gender Information Value Date Recorded Sex Assigned at Not on file Legal Sex Female 5:55 PM ORACLE EBS ARCHITECT Gender Identity Not on file Sexual Orientation [...] - 2023-2 5 season) 2024 03/18/2021, 02/25/2021 DEPRESSION SCREENING 11/27/2024 INFLUENZA VACCINE (Season Ended) 2025 10/13/2015 ZOSTER VACCINE (1 of 2) 2038 HIB [...] this topic Medical Devices Implanted Type Area Elevator Repairer Apprentice Device Identifier Shelf Expiration Date Model / Serial / Lot Screw 2.7mm 12mm T8 Cortx Evos Mini Ss Implanted:Qty: 3 on 09/10/2021 by Crys Angela MD at [facility] Left: Arm [employer] [id number] / / Screw 2.7mm 4.5mm 13mm T8 Drvr 2 End Drl Implanted:Qty: 2 on 09/10/2021 by Crys Angela MD at [facility] Left: Arm [employer] [id number] / / Screw 2.7mm 4.5mm 14mm T7 Slfret Scrdrvr Implanted:Qty: 1 on 09/10/2021 by Crys Angela MD at [facility] Left: Arm [employer] [id number] / / Screw 3.5mm 12mm Slf-Tap Cortx Evos Strl Implanted:Qty: 3 on 09/10/2021 by Crys Angela MD at [facility] Left: Arm [employer] [id number] / / Screw 3.5mm 13mm Slf-Tap Cortx Evos Strl Implanted:Qty: 1 on 09/10/2021 by Crys Angela MD at [facility] Left: Arm [employer] [id number] / / Screw 3.5mm 14mm Slf-Tap Cortx Evos Strl Implanted:Qty: 1 on 09/10/2021 by Crys Agnela MD at [facility] Left: Arm [employer] [id number] / / Screw 3.5mm 17mm Slf-Tap Cortx Evos Strl Implanted:Qty: 1 on 09/10/2021 by Crys Angela MD at [facility] Left: Arm [employer] [id number] / / 2.7mm Compression Plate Implanted:Qty: 1 on 09/10/2021 by Crys Angela MD at [facility] Left: Arm [employer] [id number] / / Insurance ANTHEM TP THIRD ALLIANCE PARTY LIABILITY [employer] Liability ANTHEM Advance Directives * Full Code (Latest Code Status on File) Date Activated Date Inactivated Comments 09/11/2021 5:37 PM 09/13/2021 12:33 PM
--- OUTSIDE RECORDS SUMMARY | 2025-03-13 14:38 | XMS_ITS | Data Portability ---
Author Organization [facility] Address [address] [place] [address] Assessment No assessment recorded. Plan of Treatment Reminders Order Date Submit Date Provider Last Modified By Organization Details Last Modified Time Details Appointments None recorded. Lab lipid panel, serum 2014 015 [facility], [address], [address], [place], [address], 5 10:38:25 CMP, serum or plasma 2014 015 [facility], [address], [address], [place], [address], 5 10:38:25 CBC w/ auto diff 2014 015 [facility], [address] [place] [address], [address], [place], [address], 5 10:38:25 TSH, serum or plasma 2014 015 [facility], [address], [address], [place], [address], 5 10:38:[address] referral - ADD and previously on Adderall. 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 2014 015 MARK Wilde MD, [address] [place], [address], 5 16:30:16 Procedures None recorded. Surgeries None recorded. Imaging None recorded. Medication Orders citalopram 20 mg tablet 2014 015 [id number], [address], [place], [place], [id number], 5 10:38:25 Patient TargetsNo targets recorded. Patient Instructions Encounter Date Encounter Id Patient Instructions Last Modified By Organization Details Last Modified Time 10/13/2015 [id number] influenza (flu) vaccine: care instructions [facility] Not available 10/13/2015 10:38:25 Reason for Referral Psychiatrist Referral for Mo od swings ADD and previously on Adderall. 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 Referring Physician: Katelin Georges, [facility], Encounter Date: 10/13/2015 Problems Name Problem SNOMED Code Status Onset Date Resolution Date Notes Provider Name and Address Organization Details Recorded Time Mood swings 54502678 Active Katelin sharma [place] - [facility] 5 10:38:25 Increased thirst 079682083 Active Katelin sharma [place] - [facility] 5 10:38:25 Problem Notes None recorded. Procedures Surgical History Date Name Laterality Status Provider Name and Address Organization Details Recorded Time 08/13/20 10 Caesarean Section completed Katelin MOSER [facility] 10/13/2015 10:05:44 09/19/20 09 Caesarean Section completed Katelin MOSER - [facility] 10/13/2015 10:05:44 11/27/18 94 Tonsillectomy completed Katelin MOSER - [facility] 10/13/2015 10:05:44 Imaging Results None [...] Address Organization Details Last Updated DateTime 5 84836.1 51663 g 100 % 100 % 157.48 cm 27.9 kg/m2 98 [degF] 112 /min 102 mm[Hg] 62 mm[Hg] Uvaldo Coppola MA [facility] 5 09:50:29 Social History Question Answer Notes LastModified by Organizat ion Details LastModified Time Tobacco Smoking Status Never Smoker Uvaldo Coppola MA null, [facility] 10/13/2015 09:51:50 What Is Your Level Of Alcohol Consumption? Occasional [email or web address] Information not available 10/13/2015 What Is Your Level Of Caffeine Consumption? Occasional Information not available 10/13/2015 What Type Of Diet Are You Following? REGULAR [email or web address] Information not available 10/13/2015 How Much Tobacco Do You Smoke? No [email or web address] Information not available 10/13/2015 General Stress Level Medium Information not available 10/13/2015 Sex: Unknown Functional Status Question Answer Note LastModified by Organization D etails LastModified Time What is your exercise level? None [email or web address] Information not available 10/13/2015 Mental Status None recorded. Family History Relationship Description Onset Age of this Age Resolved Age Notes LastModified by Organization Details LastModified Time Mother Diabetes mellitus [email or web address] Not available 2014 09:52:49 Mother Disorder of thyroid gland [email or web address] Not available 2014 09:52:49 Mother Hypertensive disorder Not available 2014 09:52:49 Medical History Condition Response Coronary Artery Disease N Other N Atrial Fibrillation N High Blood Pressure N Kidney or Bladder Problems N Thyroid Problems N GI Problems N Depression N COPD N Blood Clots N Skin Problems N Anemia N Heart Attack (SC) N Anxiety Disorder N Diabetes N Muscle, Joint, or Bone Problems Y Seizures/Epilepsy N Acid Reflux (GERD) N Cancer N Stroke N Asthma Y Allergies N High Cholesterol N Hepatitis N Liver Disease N Headaches N Heart Failure N Osteoporosis N Gynecological HistoryNo gynecological history recorded. Obstetrics History GPAL:G 0 P 0 0 0 0 Immunizations Vaccine Type Date Status Note Provider Nam e and Address Organization Details Recorded Time Influenza, split virus, quadrivalent, preservative 5 completed Not Available [employer] 12/14/2019 02:40:21 Past Encounters Encounter ID Performer Location Encounter Start Date Encounter Closed Date Diagnosis/Indication Diagnosis SNOMED-CT Code Diagnosis ICD10 Code Diagnosis Note [id number] Katelin Macdonald (Adult Med) [address] [place] [address] 10/13/2015 09:33:34 10/13/2015 11:00:15 Adult health examination 316180797 Z00.01 Encourage well balanced meals, active lifestyle, and 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 Mood swings 80261348 R45 .86 Citalopram 20 mg daily. Referring to psych. FU 1 month for citalopram eval. Administra tion of influenza vaccine 85589617 Z23 Flu shot today. Hyperlipid emia screening 428316366 Z13.220 lipid panel Increased thirst 8966650 03 R63.1 Screening for DM. Thyroid di sorder screening 563969153 Z13.29 Screening TSH Health Concerns Section Related Observation LastModified by Organization Detai ls LastModified Time None Recorded Concern Status LastModified by Organization Details LastModified Time None Recorded Advance Directives Directive None Recorded Payers Encounter Date Sequence Insurance Name Policy Number Policy Rico Covered Member ID Rico Member ID Guarantor Name 10/13/2015 1 [facility] PRIOR TO 05/27/2021 (MEDICAID REPLACEMENT - HMO) Nikki Deterding [id number] Nikki Deterding Notes Date Note Type Note Provider Name and Address Organization Details Recorded Time 10/13/2015 text/html 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 Will check on Tdap. Well exam today 10/13/15. Father of children in the [employer] stationed in [place]. He is with another child on the way and that makes situation difficult for patient. 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 Katelin Georges [facility] [place] - [facility] 10/13/2015 10:38:43 OBGyn Episode No OBEpisode recorded.
--- OUTSIDE RECORDS SUMMARY | 2025-03-13 14:38 | XMS_ITS | Referral Summary ---
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 ([facility]) TAKE 1 TABLET BY [...] on file Legal Sex Female 10:53 AM SWEDISH MASSEUSE Gender Identity Not on file Sexual Orientation [...] Plan of Treatment Not on file Insurance [employer] OS Member Subscriber Plan / Payer (Ef fective 2021-Present) Name:Nikki Schuster Relation to Subscriber:Self Name:Nikki Schuster Payer ID:[id number] (NAIC) Type:[employer] Address: [facility] [id number] ANTHEM ACCESS Advance Directives For more information, please contact: [phone] * Full Code (Latest Code Status on File) Date Activated Date Inactivated Comments 01/06/2022 12:31 AM 01/07/2022 10:21 PM Care Teams Process Control Programmer Relationship Specialty Start Date End Date Madonna Trent MD PCP - General Family Practice 01/24/23
--- OUTSIDE RECORDS SUMMARY | 2025-03-13 14:38 | XMS_ITS | Clinical Summary ---
Author Organization [facility] Address [address] [place] [address] Phone Care Team Providers Care Global Marketing Manager Name Role Phone Shukri Cavazos Primary Care Provider [phone] Joni Agudelo MD Unavailable Allergies Active Allergy Reactions Criticality Noted Date Comments Nitrofurantoin Hives 02/19/2025 Medications Wellbutrin XL 150 MG XL tablet Take 150 mg by mouth. 01/28/2025 Active PROzac 40 MG Capsule Take 40 mg by mouth daily. 12/09/2024 Active Active Problems Problem Noted Date Diagnosed Date Iron deficiency anemia, unspecified 02/24/2025 Iron deficiency 02/21/2025 Encounters Date Type Department Care Team Description 03/03/2025 8:15 AM CDT Clinical Support [facility] [address] [address] Nurse, Jennifer Roche Iron deficiency anemia, unspecified iron deficiency anemia type (Primary Dx) 03/03/2025 Travel 02/21/2025 Results Follow-Up [facility] [address], [address] [place] [id number] Joni Agudelo MD 02/19/2025 2:50 PM CDT Lab [facility] [address] [address] Lab, Jennifer Roche Iron deficiency 02/19/2025 2:30 PM CDT Office Visit [facility] [address] [phone] Joni Agudelo MD Iron deficiency (Primary Dx); Other fatigue 02/19/2025 Travel from Last 3 Months Family History Medical History Relation Name Comments Encephalitis Child 2 14 Diabetes Mother 72 Stroke Mother 72 Relation Name Status Comments Brother 42 Child 1 15 Alive Child 2 14 Alive Child 3 2 Alive Mother 72 Alive Social History Tobacco Use Types Packs/Day Years Used Date Smoking Tobacco: Never Smokeless Tobacco: Never Alcohol Use Standard Drinks/Week Comments Yes 0 (1 standard drink = 0.6 oz pur e alcohol) rarely Sexually Active Control Partners Comments Yes Comments No Sex and Gender Information Value Date Recorded Sex Assigned at Not on file Legal Sex Female 11:35 PM CDT Gender Identity Not on file Sexual Orientation Not on file Last Filed Vital Signs Vital Sign Reading Time Taken Comments Blood Pressure 116/82 02/19/2025 2:20 PM CDT Pulse 73 02/19/2025 2:20 PM CDT Temperature 36.9 C (98.4 F) 02/19/2025 2:20 PM CDT Respiratory Rate 16 02/19/2025 2:20 PM CDT Oxygen Saturation 99% 02/19/2025 2:20 PM CDT Inhaled Oxygen Concentration - - Weight 80.3 kg (177 lb 1.6 oz) 02/19/2025 2:20 P M CDT Height 157.5 cm (5' 2 ) 02/19/2025 2:20 PM CDT Body Mass Index 32.39 02/19/2025 2:20 PM CDT Plan of Treatment Upcoming Encounters Date Type Department Care Team (Late st Contact Info) Description 04/16/2025 12:00 PM CDT Lab [facility] [address] [phone] Lab, [facility] 04/23/2025 2:30 PM CDT Office Visit [facility] [address] [phone] Joni Agudelo MD [address] [place] [phone] Health Maintenance Due Date Last Done Comments Hepatitis C Virus (HCV) Screening 1988 TdaP Immunization 1988 Hepatitis B Immunization (1 of 3 - 19+ 3-dose series) 2007 SARS-COV-2 Immunization (3 - 2023- season) 2024 03/18/2021, 02/25/2021 Influenza Immunization (Seas on Ended) 2025 10/13/2015 Respiratory Syncytial Virus (RSV) Immunization (Adult) (1 - 1-dose 75+ series) 2063 Meningococcal Immunization (ACWY) Aged Out No longer eligible b ased on patient's age to complete this topic Pneumococcal Immunization Combined Aged Out No longer eligible b ased on patient's age to complete this topic Rotavirus Immunization Aged Out No lo nger eligible based on patient's age to complete this topic Procedures Procedure Name Priority Date/Time Associated Diagnosis Comments CELIAC DISEASE COMPREHENSIVE OH Routine 02/19/2025 2:48 PM CDT COMPLETE BLOOD COUNT (CBC) WITH DIFF Routine 02/19/2025 2:48 PM CDT Iron deficiency FERRITIN Routine 02/19/2025 2:48 PM CDT Iron deficiency IRON W/ IRON BINDING CAPACITY OH Routine 02/19/2025 2:48 PM CDT Iron deficiency RETICULOCYTE COUNT (RETIC) Routine 02/19/2025 2:48 PM CDT Iron deficiency from Last 3 Months Results * (ABNORMAL) IRON W/ IRON BINDING CAPACITY [place] (02/19/2025 2:48 PM CDT) IRON 45(L) 50 - 212 ug/dL [facility] UIBC 370(H) 155 - 355 ug/dL [facility] TIBC 415 261 - 478 ug/dl [facility] % Saturation 11(L) 20 - 50 % [facility] 02/19/2025 2:48 PM CDT Narrative [facility] - 02/19/2025 3:38 PM CDT Release to patient->Immediate us Joni Agudelo MD LAB SEND OUTS Final Result [facility] [address] [place] [address], [place] [phone] * CELIAC DISEASE COMPREHENSIVE [place] (02/19/2025 2:48 PM CDT) DEAMIDATED GLIADIN ABS, IGA 4 0 - 19 UNITS [facility] Comment: NEGATIVE 0 - 19 WEAK POSITIVE 20 - 30 MODERATE TO STRONG POSITIVE >30 DEAMIDATED GLIADIN ABS, IGG 2 0 - 19 UNITS [facility] Comment: NEGATIVE 0 - 19 WEAK POSITIVE 20 - 30 MODERATE TO STRONG POSITIVE >30 T-TRANSGLUTAMINASE (TTG) IGA <2 0 - 3 U/ML [facility] Comment: NEGATIVE 0 - 3 WEAK POSITIVE 4 - 10 POSITIVE >10 TISSUE TRANSGLUTAMINASE (TTG) HAS BEEN IDENTIFIED THE ENDOMYSIAL ANTIGEN. STUDIES HAVE DEMONSTR- ATED THAT ENDOMYSIAL IGA ANTIBODIES HAVE OVER 99% SPECIFICITY FOR GLUTEN SENSITIVE ENTEROPATHY. T-TRANSGLUTAMINASE (TTG) IGG 4 0 - 5 U/ML [facility] Comment: NEGATIVE 0 - 5 WEAK POSITIVE 6 - 9 POSITIVE >9 ENDOMYSIAL ANTIBODY IGA NEGATIVE NEGATIVE [facility] IMMUNOGLOBULIN A, QN, SERUM 188 87 - 352 MG/DL [facility] 02/19/2025 2:48 PM CDT Narrative [facility] - 02/20/2025 3:08 PM CDT TESTING PERFORMED AT: [] [facility], [address] [place] [address], [place], [address], PHONE: [phone], ICICLE MACHINE OPERATOR: SILVANO BROOKS, PHD us Joni Agudelo MD LAB SEND OUTS Final Result Performing Organization Address City/[facility]/ZIP Co de Phone Number [facility] [address] [place] [place] [address], [place] [phone] * RETICULOCYTE COUNT (RETIC) (02/19/2025 2:48 PM CDT) Reticulocyte count 0.81 0.50 - 1.70 % [facility] RET-He 33.90 28.20 - 36.60 pg [facility] Comment: RET-He is a direct assessment of incorporation of iron into erythrocyte hemoglobin. It provides an indirect measure of the iron available for new erythropoiesis over past 2-4 days. Blood 02/19/2025 2:48 PM CDT [facility] - 02/19/2025 3:00 PM CDT Release to patient->Immediate us Joni Agudelo MD HEMATOLOGY ORDERABLES Final Resu lt Performing Organization Address City/[facility]/ZIP Co de Phone Number [facility] [place] [address], * FERRITIN (02/19/2025 2:48 PM CDT) Pathologist [facility] Ferritin 14 11 - 307 ng/mL [facility] Blood 02/19/2025 2:48 PM CDT [facility] - 02/20/2025 3:23 PM CDT Release to patient->Immediate us Joni Agudelo MD CHEMISTRY ORDERABLES Final Resul t Performing Organization Address City/[facility]/ZIP Co de Phone Number [facility] [address] [place] [address], * (ABNORMAL) COMPLETE BLOOD COUNT (CBC) WITH DIFF (02/19/2025 2:48 PM CDT) WBC 8.5 4.0 - 10.0 10*3/uL [facility] HGB 12.8 11.2 - 15.7 g/dL [facility] HCT 38.5 34.1 - 44.9 % [facility] PLT 339 163 - 369 10*3/uL [facility] MPV 10.1 9.4 - 12.4 fL [facility] RBC 4.34 3.93 - 5.22 10*6/uL [facility] MCV 89 79 - 95 fL [facility] MCH 29.5 25.6 - 32.2 pg [facility] MCHC 33.2 32.2 - 36.5 g/dL [facility] RDW 13.3 11.6 - 14.4 % [facility] Absolute Neutrophil Count 6,353 cells/uL [facility] Absolute Seg Count 6,353 1,440 - 6,600 cells/uL [facility] Absolute Lymph Count 1,694 760 - 4,000 cells/uL [facility] Absolute [place] Count 339 160 - 1,200 cells/uL [facility] Segmented Neutrophils 75(H) 36 - 66 % [facility] Lymphocytes 20 19 - 40 % [facility] Monocytes 4 4 - 12 % [facility] Metamyelocytes 1 0 - 2 % [facility] WBC Estimate Normal [facility] Platelet Estimate Normal CA [facility] RBC Morphology Normal [facility] Blood 02/19/2025 2:48 PM CDT Narrative [facility] - 02/19/2025 3:49 PM CDT Release to patient->Immediate us Joni Agudelo MD HEMATOLOGY ORDERABLES Final Resu lt [facility] [place] [address], from Last 3 Months Insurance [facility] Care Teams Global Marketing Manager Relationship Specialty Start Date End Date Shukri Cavazos [address] [place] [address] PCP - General Family Medicine 02/11/25 Joni Agudelo MD [address] [place] [place] [address] Consulting Physician Oncology 02/11/25
--- OUTSIDE RECORDS SUMMARY | 2025-03-13 14:38 | XMS_ITS | Continuity of Care Document ---
Author Organization [facility] Address [address] [facility] [place] [address] Phone Care Team Providers Care Freight Tallier Name Role Phone Shukri Cavazos MD Unavailable [...] - Active Procedures Procedure Date OFFICE/OUTPATIENT VISIT, [facility] OFFICE/OUTPATIENT VISIT, [facility] PREV VISIT, [facility], AGE 18-39 Advance Directives Directive Yes / No Effective Date File Name No Information Encounters Encounter Description Practice Location Reason(s) For Visit Diagnoses Date Provider Providers Copied on Encounter OFFICE/OUTPA TIENT VISIT, [facility], [address] [place], [address], [place] tel:[phone] [facility] thyroid (chief complaint) HLP (chief complaint) iron (chief complaint) anxiety1 (chief complaint) Restless legs syndromeIron deficiencyGeneraliz ed Anxiety DisorderMixed hyperlipidemiaDisor esa of thyroid, unspecified Jan- 5 Dirk Watt. [address] [place], [place], [address] , [place]. tel:[phone] OFFICE/OUTPA TIENT VISIT, [facility], [address], [place], [place], [address], [place] tel:[phone] [facility] Family Medicine physical (chief complaint) Encounter for general adult medical exam w abnormal findingsFatigueAbno rmal weight gainGeneralized Anxiety DisorderRestless legs syndrome [address], [place], [place], [address] , [place]. tel:[phone] Family History Family Member Type Diagnosis Age At Onset Mother Problem DM, HTN thyroid disease, dep ression Mother Problem CVA 60s Problem Family history o f partial hysterectomy due to endometriosis 2022 Father Problem unknown Brother Problem Alive and well Payers Payer name Insurance type Covered democrat ID Robbie bronson(s) BCBS CI [id number] Social History Type Description Quantity Date Captured [...] Pt denies any dysphagia or neck pain anxiety1 Pt has chronic a nxiety and depression Pt takes prozac but not helping her depression and anxiety. Pt denies any suicidal or homicidal thought Pt denies any crying spells iron Pt has low emeli tin Pt c/o chronic fatigue. Pt denies any bleeding HLP Pt has mild HLP physical Pt needs annual physical pt has [...] Mental Status Date Cognitive Assessment Orientation - [place] ed to time, place, person, situation.
--- OUTSIDE RECORDS SUMMARY | 2025-03-13 14:38 | XMS_ITS | Clinical Summary ---
Author Organization [facility] Address [address] [place] [address] Care Team Providers Care Childrens Club Attendant Name Role Phone Madonna Trent MD Primary [...] without psychotic features without prior episode ([facility]) TAKE 1 TABLET BY MOUTH EVERY DAY [...] on file Legal Sex Female 10:53 AM [employer]PER[employer] Gender Identity Not on file Sexual Orientation [...] ral Livnic Carrasco Complications:Post He morrhage Delivery Location:[facility]spital 2009 Term 39w 0d 4.536 kg (10 lb) M CS-LT ranv Spinal Leanne Carrasco Delivery Location:[place] 2010 SAB 8w0 d Last Filed Vital [...] to Subscriber:Self Name:Nikki Schuster Payer ID:[id number] (NAIC) Type:[facility] Address: [facility] [id number] [address] ANTHEM ACCESS Advance Directives For more information, please contact: [phone] * Full Code (Latest Code Status on File) Date Activated Date Inactivated Comments 01/06/2022 12:31 AM 01/07/2022 10:21 PM Care Teams Childrens Club Attendant Relationship Specialty Start Date End Date Madonna Trent MD PCP - General Family Practice 01/24/23
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
[2025-03-13 14:43] VITALS: BP 124/67; PULSE 93; RESP 14; TEMP 36.5; O2SAT 100
--- NOTE | 2025-03-13 14:46 | ED.BACK ---
HPI - Back Pain/Injury General Chief Complaint: Back Pain/Injury Stated Complaint: R back pain Time Seen by Provider: 03/13/25 14:47 Focused HPI: 34-year-old female presents to emergency department for right flank pain that started at 3:00 a.m. this morning. Patient states the pain is intermittent and stabbing in nature. She has never had this happen before. No history kidney stones. Denies abdominal pain, dysuria or hematuria, fevers, nausea or vomiting. Patient states she was treated about a week ago for UTI by urgent care. She is uncertain what antibiotic she was taking. She back to urgent care and was prescribed Bactrim 2 days ago which she is taking currently for 5 days. GENERAL: Well-appearing, well-nourished, and in no acute distress. HEAD: Normocephalic, atraumatic. CHEST: Clear to auscultation. ?No respiratory distress. BACK: Right CVA tenderness. Abdomen is soft and nontender HEART: Regular rate and rhythm.? NEURO: ?Alert and oriented x3. Patient screened in triage and initial orders placed.? ?Additional care and disposition to be based upon?diagnostic testing and treatment. 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 Hx of trichomoniasis 2018 History of chlamydia 2018 No pertinent past medical history Surgical History Surgical History History of gynecologic surgery Robotic assisted supracervical hysterectomy, bilateral salpingectomy, lysis of adhesions, and cystoscopy History of hysteroscopy Hscope - DC and Ablation - 04/10/2023 History of cholecystectomy 01/07/2022 History of orthopedic surgery left arm broken puneet and screws placed 09/10/2021 S/P tubal ligation 06/15/2022 - C- section and tubal S/P repeat low transverse repeat xs 2 07/2010 & 05/2022 Previous section primary C/S- lack of progress - completely dilated and was unable to deliver vaginally after pushing Family History Family History Mother Hypertension Social History Social History Smoking status: Never smoker Alcohol intake: never Drinks per week: 2 Substance use: never Substance use type: does not use Do You Feel Safe in your Home?: Yes Current Housing: Decline to Answer Concerned About Future Housing: Decline to Answer Difficulty Paying Gas/Electric Bills: Decline to Answer Difficulty Paying for Meds: Decline to Answer Currently Unemployed: Decline to Answer Education: Decline to Answer Difficulty w/ Childcare or Family Care: Decline to Answer Living arrangements: with friend(s) Additional living arrangements comments: CHILDREN Occupation/Education: occupation Additional occupation/education comments: quality Gender identity (if verbalized by the patient): Female Sexual Orientation (if Verbalized by the Patient): Straight or Heterosexual Spiritual care concerns: No Exam Narrative: GENERAL: Well-appearing, well-nourished, and in no acute distress. HEAD: Normocephalic, atraumatic. EYES:EOMI. ENT: Nares clear, no rhinorrhea or epistaxis. Mucous membranes moist. NECK: Supple. CHEST: Clear to auscultation. No respiratory distress. HEART: Regular rate and rhythm. No murmur heard. Normal peripheral pulses. ABDOMEN: Soft, nontender, nondistended, normal active bowel sounds. No rebound, guarding or rigidity. Right CVA tenderness. EXTREMITIES: Normal range of motion. No edema. SKIN: Warm, dry, no rash. NEURO: No focal deficits. Alert and oriented x3 Course Vital Signs Vital signs: Vital Signs Temperature 97.7 F 03/13/25 14:43 Pulse Rate 93 03/13/25 14:43 Respiratory Rate 14 03/13/25 14:43 Blood Pressure 124/67 03/13/25 14:43 Pulse Oximetry 100 03/13/25 14:43 Temperature 97.7 F 03/13/25 14:43 Pulse Rate 93 03/13/25 14:43 Respiratory Rate 14 03/13/25 14:43 Blood Pressure 124/67 03/13/25 14:43 Pulse Oximetry 100 03/13/25 14:43 MDM - Back Pain/Injury MDM Narrative Medical decision making narrative: 34-year-old female presents emergency department for right flank pain that started at 3:00 a.m. this morning. Patient was treated for a UTI 1 week ago by urgent care with an unknown antibiotic. Symptoms persisted and she had Bactrim filled by urgent care on 03/11/2025 which she is currently taking for 5 days (one day 2). Upon arrival to the ED patient's triage vital signs are stable. She is afebrile and nontoxic appearing. Abdomen is soft and nontender. She does have some right-sided CVA tenderness. Her urine is indicative of a urinary tract infection with greater than 100 white blood cells, hematuria, 3+ leuk esterase, 4+ bacteria positive nitrates. Urine culture is pending. Her CBC shows no leukocytosis or bandemia. Her chemistries are unremarkable with normal renal function. CT abdomen pelvis without contrast obtained to rule out ureteral lithiasis shows the following: IMPRESSION: 1. No evidence of appendicitis, diverticulitis or intestinal obstruction. No kidney or ureteric stones. 2. Minimal fat stranding around the rectum with slight wall thickening which may indicate proctitis. Clinical correlation advised. 3. The urinary bladder is underfilled with thickened wall. Evaluation for cystitis advised. 4. Fat-containing small umbilical hernia. Patient updated on results. She has no pain in her rectum, no signs of proctitis, very low suspicion for this. Suspect pain is due to referred pain from UTI versus developing pyelonephritis, although patient is reassuring appearing on exam, afebrile and has no leukocytosis. She reports improvement after morphine. She was given a dose of IV Rocephin in the ED. I did contact patient's pharmacy attempt to figure out what antibiotic she was on last week, however they confirmed that there were no other antibiotics filled. Shared decision making regarding disposition given she has reportedly failed outpatient antibiotics (although again this cannot be confirmed). She feels safe for d/c home with close PCP f/u and understands strict ED return precautions. Will discontinue the Bactrim and initiate cefdinir. Naproxen sent to the pharmacy for pain. She is agreeable with the plan verbalized understanding. Discharged in stable condition. Lab Data 03/13/25 15:03 03/13/25 15:03 Labs: Lab Results 03/13/25 03/13/25 Range/Units 15:03 15:10 WBC 9.5 (4.5-10.0) K/mm3 RBC 4.20 (4.2-5.4) M/mm3 Hgb 12.4 (12.0-15.0) g/dL Hct 38.6 (37.0-47.0) % MCV 91.9 (80-100) fl MCH 29.5 (26-34) pg MCHC 32.1 (32-36) g/dl RDW 13.9 (11.5-14.5) % Plt Count 327 (150-375) k/mm3 MPV 10.4 (7.4-10.4) fl Immature Gran % (Auto) 0.3 (0-0.5) % Neut % (Auto) 70.6 (45.5-73.1) % Lymph % (Auto) 21.3 (18.3-44.2) % [place] % (Auto) 7.0 (2.6-8.5) % Eos % (Auto) 0.4 (0-4.4) % Baso % (Auto) 0.4 (0.2-1.2) % Lymph # (Auto) 2.03 (0.9-3.2) K/mm3 [place] # (Auto) 0.7 H (0.1-0.6) K/mm3 Eos # (Auto) 0.0 (0-0.3) K/mm3 Baso # (Auto) 0.0 (0.0-0.1) K/mm3 Abs Immat Gran (auto) 0.03 (0.00-0.031) K/mm3 Absolute Neuts (auto) 6.7 (1.3-6.7) K/mm3 Absolute Nucleated RBC 0.000 (0.0-0.012) K/mm3 Nucleated RBC % 0.0 (0.0-0.2) % Sodium 137 (137-145) mmol/L Potassium 3.6 (3.4-5.0) mmol/L Chloride 102 (98-107) mmol/L Carbon Dioxide 27 (22-30) mmol/L Anion Gap 8 (4-12) mmol/L BUN 8 (7-17) mg/dL Creatinine 0.94 (0.7-1.0) mg/dL Estim Creat Clear Calc 71 ml/min Estimated GFR > 60 (59 - ) Glucose 90 (65-110) mg/dL Calcium 8.7 (8.4-10.2) mg/dL Total Bilirubin 0.2 (0.2-1.3) mg/dL AST 21 (14-36) U/L ALT 20 (6-35) U/L Alkaline Phosphatase 80 (38-126) U/L Total Protein 7.0 (6.3-8.2) g/dL Albumin 4.0 (3.5-5.1) g/dL Lipase 69 (23-300) U/L Urine Color Yellow (Yellow) Urine Appearance Cloudy H (Clear) Urine pH 6.5 (5.0-9.0) Ur Specific [place] 1.018 (1.001-1.035) Urine Protein 1+ H (Negative) mg/dL Urine Glucose (UA) Negative (Negative) mg/dL Urine Ketones Negative (Negative) mg/dL Ur Blood (Man) 2+ H (Negative) Urine Nitrate Positive H (Negative) Urine Bilirubin Negative (Negative) Urine Urobilinogen 0.2 (<2.0) mg/dL Leukocyte Esterase Rfl 3+ H (Negative) RONY/UL Urine RBC 21-50 H (0-2) /hpf Urine WBC >100 H (0-3) /hpf Ur Squamous Epith Cells Few (Few) /hpf Urine Bacteria 4+ H /hpf Urine Casts 0-2 POC Urine HCG, Qual Negative (Negative) Discharge Plan Discharge Clinical Impression: UTI (urinary tract infection) Qualifiers: Urinary tract infection type: acute cystitis Hematuria presence: with hematuria Qualified Code(s): N30.01 - Acute cystitis with hematuria Umbilical hernia Qualifiers: Obstruction and gangrene presence: without obstruction or gangrene Qualified Code(s): K42.9 - Umbilical hernia without obstruction or gangrene Patient Disposition: Home Condition: Stable Instructions: Antibiotic Form, Urinary Tract Infection in Women (ED) Additional Instructions: You were evaluated in the emergency department for right flank pain. Your found have a urinary tract infection. Please stop taking the sulfamethoxazole and start taking the cefdinir I have prescribed. Take the naproxen as needed for pain. Follow-up closely with her primary care provider. Return to the emergency department if you develop worsening pain, fever of 100.4 or greater, you are unable to tolerate food or fluids, or other concerning symptoms. Patient Language: Belarusian Prescriptions: New naproxen 500 mg tablet 500 mg PO BID PRN (Reason: pain) Qty: 20 0RF cefdinir 300 mg capsule 300 mg PO Q12H 10 Days Qty: 20 0RF No Action fluoxetine [Prozac] 20 mg capsule 40 mg PO DAILY 90 Days Qty: 180 4RF bupropion HCl 150 mg tablet extended release 24 hr 150 mg PO DAILY Follow-up/Referrals: Shukri Cavazos MD [Primary Care Provider] -
[2025-03-13] MEDS: MORPHINE SULFATE (*CRX) 4 MG/ML INJ IV PUSH (15:00)
[2025-03-13 15:12] LABS: BEDSIDEPREGUCG Negative (Negative)
[2025-03-13 15:18] LABS: Basophils Percent Auto 0.4 % (0.2-1.2); Eosinophils Percent Auto 0.4 % (0-4.4); Hematocrit 38.6 % (37.0-47.0); Hemoglobin 12.4 g/dL (12.0-15.0); Immature Granulocyte Absolute 0.03 K/mm3 (0.00-0.031); Immature Granulocyte Percent A 0.3 % (0-0.5); Lymphocytes Absolute Auto 2.03 K/mm3 (0.9-3.2); Lymphocytes Percent Auto 21.3 % (18.3-44.2); Mean Corpuscular HGB Conc 32.1 g/dl (32-36); Mean Corpuscular Hemoglobin 29.5 pg (26-34); Mean Corpuscular Volume 91.9 fl (80-100); Mean Platelet Volume 10.4 fl (7.4-10.4); Monocytes Absolute Auto 0.7 K/mm3 (0.1-0.6); Neutrophils Absolute Auto 6.7 K/mm3 (1.3-6.7); Neutrophils Percent Auto 70.6 % (45.5-73.1); Platelet Count Result 327 k/mm3 (150-375); Red Cell Distribution Width 13.9 % (11.5-14.5); White Blood Count 9.5 K/mm3 (4.5-10.0)
--- OUTSIDE RECORDS SUMMARY | 2025-03-13 15:20 | XMS_ITS | Clinical Summary ---
Author Organization [facility] Address [facility] [place] [address] Care Team Providers Care Homicide Detective Name Role Phone Unavailable Primary Care Provider [...]
--- OUTSIDE RECORDS SUMMARY | 2025-03-13 15:20 | XMS_ITS | Clinical Summary ---
Author Organization [facility] Address [address] [place] [address] Care Team Providers Care Manager Long Term Care Name Role Phone Unavailable Primary Care Provider Unavailabl e Source Comments [facility],non-owned Affiliates and Associated Physician Practices is amultiple site organization consisting of ambulatory clinics and hospital sitesin [place], [place], [place] and [place]. This disclosure is being madepursuant to the Care Everywhere program and may not contain all information available regarding this patient. 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 Gender Identity Not on file Sexual Orientation [...] this topic Medical Devices Implanted Type Area [employer] Supervisor Device Identifier Shelf Expiration Date Model / Serial / Lot Screw 2.7mm 12mm T8 Cortx Evos Mini Ss Implanted:Qty: 3 on 09/10/2021 by Crys Angela MD at [facility] Left: Arm [employer] [id number] / / Screw 2.7mm 4.5mm 13mm T8 Drvr 2 End Drl Implanted:Qty: 2 on 09/10/2021 by Crys Angela MD at [facility] Left: Arm [employer] [id number] / / Screw 2.7mm 4.5mm 14mm T7 Slfret Scrdrvr Implanted:Qty: 1 on 09/10/2021 by Crys Angela MD at [facility] Left: Arm [employer] [id number] / / Screw 3.5mm 12mm Slf-Tap Cortx Evos Strl Implanted:Qty: 3 on 09/10/2021 by Crys Angela MD at [facility] Left: Arm [employer] [id number] / / Screw 3.5mm 13mm Slf-Tap Cortx Evos Strl Implanted:Qty: 1 on 09/10/2021 by Crys Angela MD at [facility] Left: Arm [employer] [id number] / / Screw 3.5mm 14mm Slf-Tap Cortx Evos Strl Implanted:Qty: 1 on 09/10/2021 by Crys Angela MD at [facility] Left: Arm [employer] [id number] / / Screw 3.5mm 17mm Slf-Tap Cortx Evos Strl Implanted:Qty: 1 on 09/10/2021 by Crys Angela MD at [facility] Left: Arm [employer] [id number] / / 2.7mm Compression Plate Implanted:Qty: 1 on 09/10/2021 by Crys Angela MD at [facility] Left: Arm [employer] [id number] / / Insurance ANTHEM 

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
--- OUTSIDE RECORDS SUMMARY | 2025-03-13 15:20 | XMS_ITS | Continuity of Care Document ---
Author Organization [facility] Address [address] [place] [address] Phone Care Team Providers Care Manager Business Intelligence Name Role Phone Shukri Cavazos MD Unavailable [...] - Active Procedures Procedure Date OFFICE/OUTPATIENT VISIT, [facility] OFFICE/OUTPATIENT VISIT, [facility] PREV VISIT, [facility], AGE 18-39 Advance Directives Directive Yes / No Effective Date File Name No Information Encounters Encounter Description Practice Location Reason(s) For Visit Diagnoses Date Provider Providers Copied on Encounter OFFICE/OUTPA TIENT VISIT, [facility], [address], [address], [place] tel:[phone] [facility] thyroid (chief complaint) HLP (chief complaint) iron (chief complaint) anxiety1 (chief complaint) Restless legs syndromeIron deficiencyGeneraliz ed Anxiety DisorderMixed hyperlipidemiaDisor esa of thyroid, unspecified Jan- 5 Dirk Watt. [address], [place], [address] , [place]. tel:[phone] OFFICE/OUTPA TIENT VISIT, [facility], [address], [place], [place], [address], [place] tel:[phone] [facility] physical (chief complaint) Encounter for general adult medical exam w abnormal findingsFatigueAbno rmal weight gainGeneralized Anxiety DisorderRestless legs syndrome [address], [place], [place], [address] , [place]. tel:[phone] Family History Family Member Type Diagnosis Age At Onset Mother Problem DM, HTN thyroid disease, dep ression Mother Problem CVA 60s Problem Family history o f partial hysterectomy due to endometriosis 2022 Father Problem unknown Brother Problem Alive and well Payers Payer name Insurance type Covered green party ID Robbie bronson(s) BCBS CI [id number] Social History Type Description Quantity Date Captured [...] Mental Status Date Cognitive Assessment Orientation - [place] ed to time, place, person, situation.
--- OUTSIDE RECORDS SUMMARY | 2025-03-13 15:20 | XMS_ITS | Clinical Summary ---
Author Organization [facility] Address [address] [place] [address] Phone Care Team Providers Care Nonprofit Financial Controller Name Role Phone Shukri Cavazos Primary Care Provider [phone] Joni Agudelo MD Unavailable Allergies Active Allergy [...] CDT Clinical Support [facility] [address] [address] Nurse, Jennifer Roche Iron deficiency anemia, unspecified iron deficiency anemia type (Primary Dx) 03/03/2025 Travel 02/21/2025 Results Follow-Up [facility] [place] [place] [address], [address] [place] [phone] Joni Agudelo MD 02/19/2025 2:50 PM CDT Lab [facility] [address] [address] Lab, Jennifer Roche Iron deficiency 02/19/2025 2:30 PM CDT Office Visit [facility] [address] [phone] Joni Agudelo MD Iron deficiency (Primary Dx); [...] PM CDT Lab [facility] [address] [phone] Lab, Cc [facility] 04/23/2025 2:30 PM CDT Office Visit [facility] [address] [phone] Joni Agudelo MD [address] [place] [address] Health Maintenance Due Date Last Done Comments [...] IRON 45(L) 50 - 212 ug/dL [facility] UIBC 370(H) 155 - 355 ug/dL [facility] TIBC 415 261 - 478 ug/dl [facility] % Saturation 11(L) 20 - 50 % [facility] 02/19/2025 2:48 PM CDT Narrative [facility] - 02/19/2025 3:38 PM CDT Release to patient->Immediate us Joni Agudelo MD LAB SEND OUTS Final Result [facility] [address] [place] [address], [place] [phone] * CELIAC DISEASE COMPREHENSIVE GA (02/19/2025 2:48 PM CDT) DEAMIDATED GLIADIN ABS, IGA 4 0 - 19 UNITS [facility] DATA PROCESSING SYSTEMS CONSULTANT [facility] Comment: NEGATIVE 0 - 19 WEAK POSITIVE 20 - 30 MODERATE TO STRONG POSITIVE >30 DEAMIDATED GLIADIN ABS, IGG 2 0 - 19 UNITS [facility] Comment: NEGATIVE 0 - 19 WEAK POSITIVE 20 - 30 MODERATE TO STRONG POSITIVE >30 T-TRANSGLUTAMINASE (TTG) IGA <2 0 - 3 U/ML [facility] Comment: NEGATIVE 0 - 3 WEAK POSITIVE 4 - 10 POSITIVE >10 TISSUE TRANSGLUTAMINASE (TTG) HAS BEEN IDENTIFIED THE ENDOMYSIAL ANTIGEN. STUDIES HAVE DEMONSTR- ATED THAT ENDOMYSIAL IGA ANTIBODIES HAVE OVER 99% SPECIFICITY FOR GLUTEN SENSITIVE ENTEROPATHY. T-TRANSGLUTAMINASE (TTG) IGG 4 0 - 5 U/ML [facility] Comment: NEGATIVE 0 - 5 WEAK POSITIVE 6 - 9 POSITIVE >9 ENDOMYSIAL ANTIBODY IGA NEGATIVE NEGATIVE [facility] IMMUNOGLOBULIN A, QN, SERUM 188 87 - 352 MG/DL [facility] 02/19/2025 2:48 PM CDT Narrative [facility] - 02/20/2025 3:08 PM CDT TESTING PERFORMED AT: [] [facility], [address] [place] [address], [place], [address], PHONE: [phone], BEVELING AND EDGING MACHINE OPERATOR: SILVANO BROOKS, PHD us Joni Agudelo MD LAB SEND OUTS Final Result Performing Organization Address City/[facility]/ZIP Co de Phone Number [facility] [address] [place] [address], [place] [phone] * RETICULOCYTE COUNT (RETIC) (02/19/2025 2:48 PM CDT) Reticulocyte count 0.81 0.50 - 1.70 % [facility] RET-He 33.90 28.20 - 36.60 pg [facility] Comment: RET-He is a direct assessment of incorporation of iron into erythrocyte hemoglobin. It provides an indirect measure of the iron available for new erythropoiesis over past 2-4 days. Blood 02/19/2025 2:48 PM CDT [facility] - 02/19/2025 3:00 PM CDT Release to patient->Immediate us Joni Agudelo MD HEMATOLOGY ORDERABLES Final Resu lt Performing Organization Address City/[facility]/ZIP Co de Phone Number [facility] PROCESSING [facility]S CON[facility] [place] [address], * FERRITIN (02/19/2025 2:48 PM CDT) Pathologist [facility] Ferritin 14 11 - 307 ng/mL [facility] Blood 02/19/2025 2:48 PM CDT [facility] - 02/20/2025 3:23 PM CDT Release to patient->Immediate us Joni Agudelo MD CHEMISTRY ORDERABLES Final Resul t Performing Organization Address City/[facility]/ZIP Co de Phone Number [facility] [address] [place] [address], * (ABNORMAL) COMPLETE BLOOD COUNT (CBC) WITH DIFF (02/19/2025 2:48 PM CDT) WBC 8.5 4.0 - 10.0 10*3/uL [facility]ESSING [facility] CON[facility] HGB 12.8 11.2 - 15.7 g/dL [facility] DATA PROCESSING SYSTEMS CONSULT[facility] HCT 38.5 34.1 - 44.9 % [facility] DATA PROCESSING [facility]S CONSULT[facility] PLT 339 163 - 369 10*3/uL [facility] CON[facility] MPV 10.1 9.4 - 12.4 fL [facility] CON[facility] RBC 4.34 3.93 - 5.22 10*6/uL [facility] PROCESSING [facility] CONS[facility] MCV 89 79 - 95 fL [facility] DATA PROCESSING SYSTEMS CONSULT[facility] MCH 29.5 25.6 - 32.2 pg [facility] DATA PROCESSING SYSTEMS CONSULT[facility] MCHC 33.2 32.2 - 36.5 g/dL [facility] DATA PROCESSING SYSTEMS CONSULT[facility] RDW 13.3 11.6 - 14.4 % [facility] DATA PROCESSING [facility]S CONSULT[facility] Absolute Neutrophil Count 6,353 cells/uL [facility] Absolute Seg Count 6,353 1,440 - 6,600 cells/uL [facility] PROCESSING [facility]S CONS[facility] Absolute Lymph Count 1,694 760 - 4,000 cells/uL [facility] DATA PROCESSING SYSTEMS CONSULTANT [facility] Absolute [place] Count 339 160 - 1,200 cells/uL [facility] DATA PROCESSING SYSTEMS CONSULT[facility] Segmented Neutrophils 75(H) 36 - 66 % [facility] DATA PROCESSING SYSTEMS CONSULT[facility] Lymphocytes 20 19 - 40 % [facility]TER [facility] Monocytes 4 4 - 12 % [facility] Metamyelocytes 1 0 - 2 % CANCE R DATA PROCESSING SYSTEMS CONSULTANT [facility] WBC Estimate Normal [facility] DATA PROCESSING [facility]S CONSULT[facility] Platelet Estimate Normal CA NCER DATA PROCESSING SYSTEMS CONSULTANT [facility] RBC Morphology Normal CANCE R DATA PROCESSING SYSTEMS CONSULTANT [facility] Blood 02/19/2025 2:48 PM CDT Narrative [facility] DATA PROCESSING SYSTEMS CONSULT[facility] - 02/19/2025 3:49 PM CDT Release to patient->Immediate us Joni Agudelo MD HEMATOLOGY ORDERABLES Final Resu lt [facility] PROCESSING [facility]S CON[facility] [place] [address], from Last 3 Months Insurance [facility] Care Teams Nonprofit Financial Controller Relationship Specialty Start Date End Date Shukri Cavazos [address] [place] [address] PCP - General Family Medicine 02/11/25 Joni Agudelo MD [address] [facility] [place] [address] Consulting Physician Oncology 02/11/25
--- OUTSIDE RECORDS SUMMARY | 2025-03-13 15:20 | XMS_ITS | Clinical Summary ---
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 [id number] [address] [place] ACCESS Advance Directives For more information, please contact: [phone] * Full Code (Latest Code Status on File) Date Activated Date Inactivated Comments 01/06/2022 12:31 AM 01/07/2022 10:21 PM Care Teams Customer Development Representative Relationship Specialty Start Date End Date Madonna Trent MD PCP - General Family Practice 01/24/23
--- OUTSIDE RECORDS SUMMARY | 2025-03-13 15:20 | XMS_ITS | Referral Summary ---
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 ([facility]) TAKE 1 TABLET BY MOUTH EVERY DAY [...] file 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 Gender Identity Not on file Sexual Orientation [...] Plan of Treatment Not on file Insurance [employer] Member Subscriber Plan / Payer (Ef fective 2021-Present) Name:Nikki Schuster Relation to Subscriber:Self Name:Nikki Schuster Payer ID:[id number] (NAIC) Type:[employer] Address: [facility] [id number] [place] ACCESS Advance Directives For more information, please contact: [phone] * Full Code (Latest Code Status on File) Date Activated Date Inactivated Comments 01/06/2022 12:31 AM 01/07/2022 10:21 PM Care Teams Lcpc Relationship Specialty Start Date End Date Madonna Trent MD PCP - General Family Practice 01/24/23
[2025-03-13 15:24] LABS: Add Urine Microscopic? YES; Appearance Urine Cloudy (Clear); Bacteria Urine 4+ /hpf; Bilirubin Urine Negative (Negative); Blood Urine 2+ (Negative); Color Urine Yellow (Yellow); Glucose Urine UA Negative (Negative); Ketones Urine Negative (Negative); Leukocyte Esterase Ur 3+ LEU/UL (Negative); Nitrate Urine Positive (Negative); Non Pathogenic Casts 0-2; Protein Urine 1+ mg/dL (Negative); RBC Urine 21-50 /hpf (0-2); Specific Grav Ur 1.018 (1.001-1.035); Squamous Epithelial Cell Urine Few /hpf (Few); Urobilinogen Urine 0.2 mg/dL (<2.0); WBC Urine >100 /hpf (0-3); pH Urine 6.5 (5.0-9.0)
[2025-03-13 15:31] LABS: Alanine Aminotransferase 20 U/L (6-35); Alkaline Phosphatase 80 U/L (38-126); Anion Gap 8 mmol/L (4-12); Aspartate Amino Transferase 21 U/L (14-36); Bilirubin,Total 0.2 mg/dL (0.2-1.3); Blood Urea Nitrogen 8 mg/dL (7-17); Calcium 8.7 mg/dL (8.4-10.2); Carbon Dioxide 27 mmol/L (22-30); Chloride 102 mmol/L (98-107); Estimated CRCL calculation 71 ml/min; Estimated Glomerular Filt Rate > 60; Glucose 90 mg/dL (65-110); Lipase 69 U/L (23-300); Potassium 3.6 mmol/L (3.4-5.0); Sodium 137 mmol/L (137-145)
== END 2025-03-13 16:35 | disposition home or self-care (01) ==
PROVIDERS: Emergency Provider Physician Assistant; PCP Emergency Medicine
DX: N30.01 Acute cystitis with hematuria (principal); K42.9 Umbilical hernia without obstruction or gangrene; J45.909 Unspecified asthma, uncomplicated; F32.A Depression, unspecified; Z90.49 Acquired absence of other specified parts of digestive tract; Z79.899 Other long term (current) drug therapy
CPT/HCPCS: 36415; 74176; 80053; 81001; 81025; 83690; 85025; 87077; 87086; 87186; 96365; 96375; 99284; J0696; J2270

== ENCOUNTER 2025-03-27 16:12 | Outpatient (CLI) | payer BC, SELFPAY ==
--- OUTSIDE RECORDS SUMMARY | 2025-03-27 16:16 | XMS_ITS | Data Portability ---
Author Organization [facility] Address [address] [place] [address] Assessment No assessment recorded. Plan of Treatment Reminders Order Date Submit Date Provider Last Modified By Organization Details Last Modified Time Details Appointments None recorded. Lab lipid panel, serum 2014 015 [facility], [address], [address], [place], [address], 5 10:38:25 CMP, serum or plasma 2014 015 [facility], [address], [address], [place], [address], 5 10:38:25 CBC w/ auto diff 2014 015 [facility], [address] [place] [address], [address], [place], [address], 5 10:38:25 TSH, serum or plasma 2014 015 [facility], [address], [address], [place], [address], 5 10:38:[address] referral - ADD and previously on Adderall. prepleater with trouble concentrat ing/focusi ng.Please call patient with apt. 2014 015 MARK Wilde MD, [address] [place], [address], 5 16:30:16 Procedures None recorded. Surgeries None recorded. Imaging None recorded. Medication Orders citalopram 20 mg tablet 2014 015 [id number], [address], [place], [place], [id number], 5 10:38:25 Patient TargetsNo targets recorded. Patient Instructions Encounter Date Encounter Id Patient Instructions Last Modified By Organization Details Last Modified Time 10/13/2015 [id number] influenza (flu) vaccine: care instructions [facility] Not available 10/13/2015 10:38:25 Reason for Referral Psychiatrist Referral for Mo od swings ADD and previously on Adderall. prepleater with trouble concentrating/focusing.Please call patient with apt. Referring Physician: Katelin Georges, [facility], Encounter Date: 10/13/2015 Problems Name Problem SNOMED Code Status Onset Date Resolution Date Notes Provider Name and Address Organization Details Recorded Time Mood swings 96026890 Active Katelin sharma [facility] - [facility] 5 10:38:25 Increased thirst 937874370 Active Katelin sharma [facility] 5 10:38:25 Problem Notes None recorded. Procedures Surgical History Date Name Laterality Status Provider Name and Address Organization Details Recorded Time 08/13/20 10 Caesarean Section completed Katelin MOSER [facility] 10/13/2015 10:05:44 09/19/20 09 Caesarean Section completed Katelin MOSER - [facility] 10/13/2015 10:05:44 11/27/18 94 Tonsillectomy completed Katelin MOSER - [facility] 10/13/2015 10:05:44 Imaging Results None recorded. Procedure [...] Address Organization Details Last Updated DateTime 5 24623.1 74895 g 100 % 100 % 157.48 cm 27.9 kg/m2 98 [degF] 112 /min 102 mm[Hg] 62 mm[Hg] Uvaldo Coppola MA [facility] 5 09:50:29 Social History Question Answer Notes LastModified by Organizat ion Details LastModified Time Tobacco Smoking Status Never Smoker Uvaldo Coppola MA null, [facility] 10/13/2015 09:51:50 What Is Your Level Of Alcohol Consumption? Occasional [email or web address] Information not available 10/13/2015 What Is Your Level Of Caffeine Consumption? Occasional [email or web address] Information not available 10/13/2015 What Type Of Diet Are You Following? REGULAR [email or web address] Information not available 10/13/2015 How Much Tobacco Do You Smoke? No [email or web address] Information not available 10/13/2015 General Stress Level Medium [email or web address] Information not available 10/13/2015 Sex: Unknown Functional Status Question Answer Note LastModified by Organization D etails LastModified Time What is your exercise level? None [email or web address] Information not available 10/13/2015 Mental Status None recorded. Family History Relationship Description Onset Age of this Age Resolved Age Notes LastModified by Organization Details LastModified Time Mother Diabetes mellitus Not available 2014 09:52:49 Mother Disorder of thyroid gland [email or web address] Not available 2014 09:52:49 Mother Hypertensive disorder Not available 2014 09:52:49 Medical History Condition Response Coronary Artery Disease N Other N High Blood Pressure N Atrial Fibrillation N Thyroid Problems N Kidney or Bladder Problems N Blood Clots N COPD N Depression N GI Problems N Skin Problems N Anemia N Heart Attack (MS) N Anxiety Disorder N Diabetes N Muscle, [...] SNOMED-CT Code Diagnosis ICD10 Code Diagnosis Note [id number] JESSICA Perrin- Renae (Adult Med) [address] [place] [address] 10/13/2015 09:33:34 10/13/2015 11:00:15 Adult health examination 507361698 Z00.01 Encourage well balanced meals, active lifestyle, and routine vision/den paco/auto radiator specialist apts. Mood swings 00569059 R45 .86 Citalopram 20 mg daily. Referring to psych. FU 1 month for citalopram eval. Administra tion of influenza vaccine 88227212 Z23 Flu shot today. Hyperlipid emia screening 500543285 Z13.220 lipid panel Increased thirst 6608047 03 R63.1 Screening for DM. Thyroid di sorder screening 294144712 Z13.29 Screening TSH Health Concerns Section Related Observation LastModified by Organization Detai ls LastModified Time None Recorded Concern Status LastModified by Organization Details LastModified Time None Recorded Advance Directives Directive None Recorded Payers Encounter Date Sequence Insurance Name Policy Number Policy [place] Covered Member ID [place] Member ID Guarantor Name 10/13/2015 1 [facility] - DOS PRIOR TO 2021 (MEDICAID REPLACEMENT - HMO) Nikki Deterding [id number] Nikki Deterding Notes Date Note Type Note Provider Name and Address Organization Details Recorded Time 10/13/2015 text/html 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 Will check on Tdap. Well exam today 10/13/15. Father of children in the [employer] stationed in [place]. He is with another child on the way and that makes situation difficult for patient. 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 Katelin Georges [facility] 10/13/2015 10:38:43 OBGyn Episode No OBEpisode recorded.
--- OUTSIDE RECORDS SUMMARY | 2025-03-27 16:16 | XMS_ITS | Continuity of Care Document ---
Author Organization [facility] Address [address] [facility] [place] [address] [place] [address] Phone Care Team Providers Care Mastercam Programmer Name Role Phone Shukri Cavazos MD Unavailable [...] Procedure Date OFFICE/OUTPATIENT VISIT, EST OFFICE/OUTPATIENT VISIT, [facility] PREV VISIT, NEW, AGE 18-39 Advance Directives Directive Yes / No Effective Date File Name No Information Encounters Encounter Description Practice Location Reason(s) For Visit Diagnoses Date Provider Providers Copied on Encounter [facility], [address] [place], [place], [address], tel:[phone] [facility] No Information Dirk Watt. [address] [facility] [place], [address] , [place]. tel:[phone] OFFICE/OUTPA TIENT VISIT, EST [facility], [address] [employer], [place], [place], [address], [place] tel:[phone] [facility] Medicine thyroid (chief complaint) HLP (chief complaint) iron (chief complaint) anxiety1 (chief complaint) Restless legs syndromeIron deficiencyGeneraliz ed Anxiety DisorderMixed hyperlipidemiaDisor esa of thyroid, unspecified 5 Dirk Watt. [address], [place], [place], [address] , [place]. [phone] OFFICE/OUTPA TIENT VISIT, [facility], [address], [place], [place], [address], [place] tel:[phone] [facility] physical (chief complaint) Encounter for general adult medical exam w abnormal findingsFatigueAbno rmal weight gainGeneralized Anxiety DisorderRestless legs syndrome 5 Dirk Watt. [address], [place], [place], [address] , [place]. [phone] Family History Family Member Type Diagnosis Age At Onset Mother Problem DM, HTN thyroid disease, dep ression Mother Problem CVA 60s Problem Family history o f partial hysterectomy due to endometriosis 2022 Father Problem unknown Brother Problem Alive and well Payers Payer name Insurance type Covered constitution party ID Authoriza tion(s) BS CI [id number] Social History Type Description Quantity Date Captured Comments Alcohol Use Details Caffeine Use Details Unknown Tobacco Use Status Current non-smoker Smoking Status Never smoker Sex Female Vital Signs Date / Time: Height Weight BMI Pulse Rate Blood Pressure Temperature Respiratory Rate Body Surface Area Head Circumference BMI percentile Pulse Ox Inhaled Ox 3:35 PM 62.00 in 177.20 lbs 32.4 1 kg/m eter (2) 86 /min 120/72 mm[Hg] 97.9 F 16 /min Chief Complaint And Reason For Visit No Information Plan Of Treatment Date Type Action Status Referral Ordered: Hematology (related to Iron deficiency) ordered Referral Ordered: COLONOSCOPY AND BIOPSY ordered Referral Ordered: Referrals: Hematology. Evaluate and treat ordered History Of Present Illness Encounter Date Complaint History Of Prese nt Illness anxiety1 Pt has chronic a nxiety and depression Pt takes prozac but not helping her depression and anxiety. Pt denies any suicidal or homicidal thought Pt denies any crying spells iron Pt has low emeli tin Pt c/o chronic fatigue. Pt denies any bleeding HLP Pt has mild HLP thyroid Pt has family hi story of thyroid disease. her TSH is ok. Thyroglobulin is borderline high. Pt denies any dysphagia or neck pain physical Pt needs annual physical pt has [...] rosalie No Information Assessments Type Assessment Date No Information
--- OUTSIDE RECORDS SUMMARY | 2025-03-27 16:16 | XMS_ITS | Referral Summary ---
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 Gender Identity Not on file Sexual Orientation [...] Plan of Treatment Not on file Insurance [employer] Member Subscriber Plan / Payer (Ef fective 2021-Present) Name:Nikki Schuster Relation to Subscriber:Self Name:Nikki Schuster Payer ID:[id number] (NAIC) Type:[employer] Address: [facility] [id number] [place] ACCESS Advance Directives For more information, please contact: [phone] * Full Code (Latest Code Status on File) Date Activated Date Inactivated Comments 01/06/2022 12:31 AM 01/07/2022 10:21 PM Care Teams Chief Yeoman Relationship Specialty Start Date End Date Madonna Trent MD PCP - General Family Practice 01/24/23
--- OUTSIDE RECORDS SUMMARY | 2025-03-27 16:16 | XMS_ITS | Clinical Summary ---
Author Organization [facility] Address [address] [place] [address] Care Team Providers Care Remote Sensing Advisor Name Role Phone Unavailable Primary Care Provider Unavailabl e Source Comments [facility],non-owned Affiliates and Associated Physician Practices is amultiple site organization consisting of ambulatory clinics and hospital sitesin [place], [place], [place] and [place]. This disclosure is being madepursuant to the Care Everywhere program and may not contain all information available regarding this patient. 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 Gender Identity Not on file Sexual Orientation [...] this topic Medical Devices Implanted Type Area Platform Attendant Device Identifier Shelf Expiration Date Model / Serial / Lot Screw 2.7mm 12mm T8 Cortx Evos Mini Ss Implanted:Qty: 3 on 09/10/2021 by Crys Angela MD at [facility] Left: Arm [employer] [id number] / / Screw 2.7mm 4.5mm 13mm T8 Drvr 2 End Drl Implanted:Qty: 2 on 09/10/2021 by Crys Angela MD at [facility] Left: Arm [employer] [id number] / / Screw 2.7mm 4.5mm 14mm T7 Slfret Scrdrvr Implanted:Qty: 1 on 09/10/2021 by Crys Angela MD at [facility] Left: Arm [employer] [id number] / / Screw 3.5mm 12mm Slf-Tap Cortx Evos Strl Implanted:Qty: 3 on 09/10/2021 by Crys Angela MD at [facility] Left: Arm [employer] [id number] / / Screw 3.5mm 13mm Slf-Tap Cortx Evos Strl Implanted:Qty: 1 on 09/10/2021 by Crys Angela MD at [facility] Left: Arm [employer] [id number] / / Screw 3.5mm 14mm Slf-Tap Cortx Evos Strl Implanted:Qty: 1 on 09/10/2021 by Crys Angela MD at [facility] Left: Arm [employer] [id number] / / Screw 3.5mm 17mm Slf-Tap Cortx Evos Strl Implanted:Qty: 1 on 09/10/2021 by Crys Angela MD at [facility] Left: Arm [employer] [id number] / / 2.7mm Compression Plate Implanted:Qty: 1 on 09/10/2021 by Crys Angela MD at [facility] Left: Arm [employer] [id number] / / Insurance ANTHEM TP THIRD GREEN PARTY LIABILITY [employer] Party Liability ANTHEM Advance Directives * Full Code (Latest Code Status on File) Date Activated Date Inactivated Comments 09/11/2021 5:37 PM 09/13/2021 12:33 PM
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
--- OUTSIDE RECORDS SUMMARY | 2025-03-27 16:16 | XMS_ITS | Clinical Summary ---
Author Organization [facility] Address [address] [place] [address] Phone Care Team Providers Care Coal Mill Operator Name Role Phone Shukri Cavazos Primary Care Provider Joni Agudelo MD Unavailable Allergies Active Allergy [...] CDT Clinical Support [facility] [address] [address] Nurse[facility] Iron deficiency anemia, unspecified iron deficiency anemia type (Primary Dx) 03/03/2025 Travel 02/21/2025 Results Follow-Up [facility] [address] [place] [address] Joni Agudelo MD RETICULOCYTE COUNT (RETIC), IRON W/ IRON BINDING CAPACITY [place], FERRITIN, Additional followed-up results: 2 02/19/2025 2:50 PM CDT Lab [facility] [address] [address] Lab, Cc Kaley Iron deficiency 02/19/2025 2:30 PM CDT Office Visit [facility] [address] [phone] Joni Agudelo MD Iron deficiency (Primary Dx); [...] PM CDT Lab [facility] [address] [id number] Lab, Jennifer Roche [place] 04/23/2025 2:30 PM CDT Office Visit [facility] [address] [phone] Joni Agudelo MD [address] [place] [address] Health Maintenance Due Date Last Done Comments [...] IRON 45(L) 50 - 212 ug/dL [facility] UIBC 370(H) 155 - 355 ug/dL [facility] TIBC 415 261 - 478 ug/dl [facility] % Saturation 11(L) 20 - 50 % [facility] 02/19/2025 2:48 PM CDT Narrative [facility] - 02/19/2025 3:38 PM CDT Release to patient->Immediate us Joni Agudelo MD LAB SEND OUTS Final Result [facility] Cancer Care [facility] [place] [address], * CELIAC DISEASE COMPREHENSIVE CO (02/19/2025 2:48 PM CDT) DEAMIDATED GLIADIN ABS, IGA 4 0 - 19 UNITS [facility] Comment: NEGATIVE 0 - 19 WEAK POSITIVE 20 - 30 MODERATE TO STRONG POSITIVE >30 DEAMIDATED GLIADIN ABS, IGG 2 0 - 19 UNITS [facility] Comment: NEGATIVE 0 - 19 WEAK POSITIVE 20 - 30 MODERATE TO STRONG POSITIVE >30 T-TRANSGLUTAMINASE (TTG) IGA <2 0 - 3 U/ML [facility] Comment: NEGATIVE 0 - 3 WEAK POSITIVE 4 - 10 POSITIVE >10 TISSUE TRANSGLUTAMINASE (TTG) HAS BEEN IDENTIFIED THE ENDOMYSIAL ANTIGEN. STUDIES HAVE DEMONSTR- ATED THAT ENDOMYSIAL IGA ANTIBODIES HAVE OVER 99% SPECIFICITY FOR GLUTEN SENSITIVE ENTEROPATHY. T-TRANSGLUTAMINASE (TTG) IGG 4 0 - 5 U/ML [facility] Comment: NEGATIVE 0 - 5 WEAK POSITIVE 6 - 9 POSITIVE >9 ENDOMYSIAL ANTIBODY IGA NEGATIVE NEGATIVE [facility] IMMUNOGLOBULIN A, QN, SERUM 188 87 - 352 MG/DL [facility] 02/19/2025 2:4 8 PM CDT Narrative [facility] - 02/20/2025 3:08 PM CDT TESTING PERFORMED AT: [] [email or web address], [address] [place] [address], [address], PHONE: [phone], GLOBAL EXPANSION SALES DIRECTOR: SILVANO BROOKS, PHD Joni Agudelo MD LAB SEND OUTS Final Result [facility] [address] [place] [address], * RETICULOCYTE COUNT (RETIC) (02/19/2025 2:48 PM CDT) Reticulocyte count 0.81 0.50 - 1.70 % [facility] RET-He 33.90 28.20 - 36.60 pg [facility] Comment: RET-He is a direct assessment of incorporation of iron into erythrocyte hemoglobin. It provides an indirect measure of the iron available for new erythropoiesis over past 2-4 days. Blood 02/19/2025 2:48 PM CDT [facility] - 02/19/2025 3:00 PM CDT Release to patient->Immediate Joni Agudelo MD HEMATOLOGY ORDERABLES Final Resu lt Performing Organization Address City/[facility]/ZIP Co de Phone Number [facility] [place] [place] [address], * FERRITIN (02/19/2025 2:48 PM CDT) Pathologist [facility] Ferritin 14 11 - 307 ng/mL [facility] Blood 02/19/2025 2:[address] [facility] - 02/20/2025 3:23 PM CDT Release to patient->Immediate Joni Agudelo MD CHEMISTRY ORDERABLES Final Resul t [facility] [place] [address], * (ABNORMAL) COMPLETE BLOOD COUNT (CBC) WITH DIFF (02/19/2025 2:48 PM CDT) WBC 8.5 4.0 - 10.0 10*3/uL [facility] HGB 12.8 11.2 - 15.7 g/dL [facility] HCT 38.5 34.1 - 44.9 % [facility] PLT 339 163 - 369 10*3/uL [facility] MPV 10.1 9.4 - 12.4 fL [facility] RBC 4.34 3.93 - 5.22 10*6/uL [facility] MCV 89 79 - 95 fL [facility] MCH 29.5 25.6 - 32.2 pg [facility] MCHC 33.2 32.2 - 36.5 g/dL [facility] RDW 13.3 11.6 - 14.4 % [facility] Absolute Neutrophil Count 6,353 cells/uL [facility] Absolute Seg Count 6,353 1,440 - 6,600 cells/uL [facility] Absolute Lymph Count 1,694 760 - 4,000 cells/uL [facility] Absolute [place] Count 339 160 - 1,200 cells/uL [facility] Segmented Neutrophils 75(H) 36 - 66 % [facility] Lymphocytes 20 19 - 40 % [facility] Monocytes 4 4 - 12 % [facility] ARNULFO [facility] Metamyelocytes 1 0 - 2 % C[facility] R [facility]ENT [facility] WBC Estimate Normal [facility] Platelet Estimate Normal CA [facility] RBC Morphology Normal [facility] Blood 02/19/2025 2:48 PM CDT Narrative [facility] - 02/19/2025 3:49 PM CDT Release to patient->Immediate us Joni Agudelo MD HEMATOLOGY ORDERABLES Final Resu lt [facility] [place] [address], from Last 3 Months Insurance [facility] Care Teams Coal Mill Operator Relationship Specialty Start Date End Date Shukri Cavazos [address] [place] [address] PCP - General Family Medicine 02/11/25 Joni Agudelo MD [address] [place] [address] Consulting Physician Oncology 02/11/25
--- OUTSIDE RECORDS SUMMARY | 2025-03-27 16:16 | XMS_ITS | Clinical Summary ---
Author Organization [facility] Address [facility] [place] [address] Care Team Providers Care Installation Specialist Name Role Phone Unavailable Primary Care Provider [...]
--- OUTSIDE RECORDS SUMMARY | 2025-03-27 16:16 | XMS_ITS | Clinical Summary ---
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 Gender Identity Not on file Sexual [...] ral Livnic Carrasco Complications:Post He morrhage Delivery Location[facility] Term 39w 0d 4.536 kg (10 lb) M CS-LT ranv Spinal Leanne Carrasco Delivery Location:[facility] 2010 SAB 8w0 d Last Filed Vital [...] patient's age to complete this topic Insurance * Guarantor: Nikki Schuster Account Type Relation to Patient Date of Phone Billing Address Personal/Family Self 1990 [address] [id number] [facility] Member Subscriber Plan / Payer (Ef fective 2021-Present) Name:Nikki Schuster Relation to Subscriber:Self Name:Nikki Schuster Payer ID:[id number] (NAIC) Type:[facility] Address: [facility] [id number] [address] ANTHEM ACCESS Advance Directives For more information, please contact: [phone] * Full Code (Latest Code Status on File) Date Activated Date Inactivated Comments 01/06/2022 12:31 AM 01/07/2022 10:21 PM Care Teams Manager Customer Service Relationship Specialty Start Date End Date Madonna [place] MD PCP - General Family Practice 01/24/23
[2025-03-27 17:25] LABS: Add Urine Microscopic? YES; Appearance Urine Clear (Clear); Bacteria Urine None Seen /hpf; Bilirubin Urine Negative (Negative); Blood Urine 1+ (Negative); Color Urine Yellow (Yellow); Glucose Urine UA Negative (Negative); Ketones Urine Negative (Negative); Leukocyte Esterase Ur Negative LEU/UL (Negative); Nitrate Urine Negative (Negative); Non Pathogenic Casts 0-2; Protein Urine Negative (Negative); Specific Grav Ur 1.013 (1.001-1.035); Squamous Epithelial Cell Urine Few /hpf (Few); Urobilinogen Urine 0.2 mg/dL (<2.0); WBC Urine 0-5 /hpf (0-3); pH Urine 6.5 (5.0-9.0)
[2025-03-27 18:13] LABS: HIV 1/2 Ab P24 Ag Result Negative (Negative)
[2025-03-27 18:30] LABS: Hepatitis B Surface Antigen Negative (Negative)
[2025-03-27 18:32] LABS: Syphilis IgG/IgM Antibody Negative (Negative)
[2025-03-27 18:36] LABS: HAV RESULT Negative (Negative); Hepatitis B Core IgM Result Negative (Negative)
[2025-03-27 18:48] LABS: Hepatitis C Virus Antibody Negative (Negative)
[2025-03-28 06:18] LABS: Progesterone 0.9 ng/mL
[2025-03-28 18:03] LABS: FSH 10.7 mIU/mL; LH 2.8 mIU/mL; Sex Hormone Binding Globulin 39 nmol/L (17-124)
== END 2025-03-27 16:13 | disposition home or self-care (01) ==
LOC: ANHLAB 16:14
PROVIDERS: PCP Emergency Medicine; Visit Provider Obstetrics & Gynecology
DX: R61 Generalized hyperhidrosis (principal); R30.0 Dysuria; Z20.2 Contact with and (suspected) exposure to infections with a predominantly sexual mode of transmission
CPT/HCPCS: 36415; 80074; 81001; 82670; 83001; 83002; 84144; 84270; 84443; 86593; 86703; 87340; G0432

== ENCOUNTER 2025-04-10 02:47 | Day surgery (SDC) | payer BC, SELFPAY ==
[2025-02-13 14:02] VITALS: BMI 33.0
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
--- OUTSIDE RECORDS SUMMARY | 2025-02-17 01:45 | XMS_ITS | Continuity of Care Document ---
Author Organization [facility] Address [address] [facility] [place] [address] Phone Care Team Providers Care Fund Manager Name Role Phone Shukri Cavazos MD Unavailable Unavailable Allergies, Adverse Reactions, Alerts Substance Reaction Status Criticality NITROFURANTOIN MACROCRYSTALLINE Hives / Skin Rash Acti ve No Information nitrofurantoin Hives / Skin Rash Active No Infor mation Medications Medication Instructions Dosage Effective Dates (start - stop) Status Comments Wellbutrin XL 150 mg 24 hr tablet, extended release take 1 tablet by oral route every morning 150 MG - Active Prozac 40 mg capsule take 1 capsule by o ral route every day in the morning 40 MG - Active Procedures Procedure Date OFFICE/OUTPATIENT VISIT, [facility] OFFICE/OUTPATIENT VISIT, [facility] PREV VISIT, [facility], AGE 18-39 Advance Directives Directive Yes / No Effective Date File Name No Information Encounters Encounter Description Practice Location Reason(s) For Visit Diagnoses Date Provider Providers Copied on Encounter OFFICE/OUTPA TIENT VISIT, [facility], [address] [place], [place], [id number], [place] tel:[phone] [facility] thyroid (chief complaint) HLP (chief complaint) iron (chief complaint) anxiety1 (chief complaint) Restless legs syndromeIron deficiencyGeneraliz ed Anxiety DisorderMixed hyperlipidemiaDisor esa of thyroid, unspecified Jan- 5 Dirk Watt. [address] [place], [place], [id number] , [place]. tel:[phone] OFFICE/OUTPA TIENT VISIT, [facility], [address], [place], [place], [address], [place] tel:[phone] [facility] Family Medicine physical (chief complaint) Encounter for general adult medical exam w abnormal findingsFatigueAbno rmal weight gainGeneralized Anxiety DisorderRestless legs syndrome [address], [place], [place], [id number] , [place]. tel:[phone] Family History Family Member Type Diagnosis Age At Onset Mother Problem DM, HTN thyroid disease, dep ression Mother Problem CVA 60s Problem Family history o f partial hysterectomy due to endometriosis 2022 Father Problem unknown Brother Problem Alive and well Payers Payer name Insurance type Covered republican ID Robbie bronson(s) BCBS CI [id number] Social History Type Description Quantity Date Captured Comments Alcohol Use Details Caffeine Use Details Unknown Tobacco Use Status Current non-smoker Smoking Status Never smoker Sex Female Vital Signs Date / Time: Height Weight BMI Pulse Rate Blood Pressure Temperature Respiratory Rate Body Surface Area Head Circumference BMI percentile Pulse Ox Inhaled Ox 5:23 PM 62.00 in 181.20 lbs 33.1 4 kg/m eter (2) 75 /min 110/70 mm[Hg] 98.5 F 16 /min Chief Complaint And Reason For Visit From encounter dated '01/28/2025 17:18'. thyroid (chief complaint). Description: Pt has family history of thyroid disease. her TSH is ok. Thyroglobulin is borderline high. Pt denies any dysphagia or neck pain HLP (chief complaint). Description: Pt has mild HLP iron (chief complaint). Description: Pt has low ferritin Pt c/o chronic fatigue. Pt denies any bleeding anxiety1 (chief complaint). Description: Pt has chronic anxiety and depression Pt takes prozac but not helping her depression and anxiety. Pt denies any suicidal or homicidal thought Pt denies any crying spells Plan Of Treatment Date Type Action Status Referral Ordered: Hematology (related to Iron deficiency) ordered Referral Ordered: COLONOSCOPY AND BIOPSY ordered Referral Ordered: Referrals: Hematology. Evaluate and treat ordered History Of Present Illness Encounter Date Complaint History Of Prese nt Illness thyroid Pt has family hi story of thyroid disease. her TSH is ok. Thyroglobulin is borderline high. Pt denies any dysphagia or neck pain HLP Pt has mild HLP iron Pt has low emeli tin Pt c/o chronic fatigue. Pt denies any bleeding anxiety1 Pt has chronic a nxiety and depression Pt takes prozac but not helping her depression and anxiety. Pt denies any suicidal or homicidal thought Pt denies any crying spells physical Pt needs annual physical pt has been feeling very fatigue and wore out all the time for two years pt denies any sob or dizziness Pt sometimes wakes up at night and feels restless around legs. Pt denies any sob .Pt does snore a lot Pt has chronic anxiety and depression Pt takes prozac but is not helping Pt denies any suicidal or homicidal thought Pt denies any crying spells. Pt also gained weight since last year and she feels cold all the time. Instructions Date Instruction Additional Infor rosalie No Information Assessments Type Assessment Date assessment Restless legs syndrome assessment Iron deficiency assessment Generalized Anxiety Disorder Jan assessment Mixed hyperlipidemia assessment Disorder of thyroid, unspecified Mental Status Date Cognitive Assessment Orientation - [place] ed to time, place, person, situation.
--- OUTSIDE RECORDS SUMMARY | 2025-02-17 01:46 | XMS_ITS | Data Portability ---
Author Organization [facility] Address [address] [place] [address] Assessment No assessment recorded. Plan of Treatment Reminders Order Date Submit Date Provider Last Modified By Organization Details Last Modified Time Details Appointments None recorded. Lab lipid panel, serum 2014 015 [facility], [address], [address], [place], [address], 5 10:38:25 CMP, serum or plasma 2014 015 [facility], [address], [address], [place], [address], 5 10:38:25 CBC w/ auto diff 2014 015 [facility], [address] [place] [address], [address], [place], [address], 5 10:38:25 TSH, serum or plasma 2014 015 [facility], [address], [address], [place], [address], 5 10:38:[address] referral - ADD and previously on Adderall. ambulatory care with trouble concentrat ing/focusi ng.Please call patient with apt. 2014 015 MARK Wilde MD, [address] [place], [address], 5 16:30:16 Procedures None recorded. Surgeries None recorded. Imaging None recorded. Medication Orders citalopram 20 mg tablet 2014 015 [id number], [address], [place], [place], [id number], 5 10:38:25 Patient TargetsNo targets recorded. Patient Instructions Encounter Date Encounter Id Patient Instructions Last Modified By Organization Details Last Modified Time 10/13/2015 [id number] influenza (flu) vaccine: care instructions [facility] Not available 10/13/2015 10:38:25 Reason for Referral Psychiatrist Referral for Mo od swings ADD and previously on Adderall. ambulatory care with trouble concentrating/focusing.Please call patient with apt. Referring Physician: Katelin Georges, [facility] Medicine, Encounter Date: 10/13/2015 Problems Name Problem SNOMED Code Status Onset Date Resolution Date Notes Provider Name and Address Organization Details Recorded Time Mood swings 01917890 Active Katelin sharma [place] - [facility] 5 10:38:25 Increased thirst 693297659 Active Katelin sharma [place] - [facility] 5 10:38:25 Problem Notes None recorded. Procedures Surgical History Date Name Laterality Status Provider Name and Address Organization Details Recorded Time 08/13/20 10 Caesarean Section completed Katelin [facility] 10/13/2015 10:05:44 09/19/20 09 Caesarean Section completed Katelin MOSER - [facility] 10/13/2015 10:05:44 11/27/18 94 Tonsillectomy completed Katelin MOSER - [facility] 10/13/2015 10:05:44 Imaging Results None recorded. Procedure Notes None recorded. Medical Equipment None Reported. Allergies No known drug allergies Medications Name Sig Start Date Stop Date Status Note LastModified by Organization Details LastModified Time citalopram 20 mg tablet Take 1 tablet every day by oral route. 015 active Not Available Not Available Not Avai lable Vitals Date Recorded Body weight Oxygen saturation Oxygen saturation in Arterial blood by Pulse oximetry Body height Body mass index (BMI) Body temperature Heart rate Systolic blood pressure Diastolic blood pressure Provider Name and Address Organization Details Last Updated DateTime 5 35235.1 91570 g 100 % 100 % 157.48 cm 27.9 kg/m2 98 [degF] 112 /min 102 mm[Hg] 62 mm[Hg] Uvaldo Coppola MA [facility] 5 09:50:29 Social History Question Answer Notes LastModified by Organizat ion Details LastModified Time Tobacco Smoking Status Never Smoker Uvaldo Coppola MA null, [facility] 10/13/2015 09:51:50 What Is Your Level Of Alcohol Consumption? Occasional [email or web address] Information not available 10/13/2015 What Is Your Level Of Caffeine Consumption? Occasional [email or web address] Information not available 10/13/2015 What Type Of Diet Are You Following? REGULAR [email or web address] Information not available 10/13/2015 How Much Tobacco Do You Smoke? No Information not available 10/13/2015 General Stress Level Medium [email or web address] Information not available 10/13/2015 Sex: Unknown Functional Status Question Answer Note LastModified by Organization D etails LastModified Time What is your exercise level? None [email or web address] Information not available 10/13/2015 Mental Status None recorded. Family History Relationship Description Onset Age of this Age Resolved Age Notes LastModified by Organization Details LastModified Time Mother Diabetes mellitus [email or web address] Not available 2014 09:52:49 Mother Disorder of thyroid gland [email or web address] Not available 2014 09:52:49 Mother Hypertensive disorder Not available 2014 09:52:49 Medical History Condition Response Coronary Artery Disease N Other N Atrial Fibrillation N High Blood Pressure N Depression N COPD N Blood Clots N Anxiety Disorder N Muscle, Joint, or Bone Problems Y Acid Reflux (GERD) N Cancer N Stroke N High Cholesterol N Liver Disease N Headaches N Thyroid Problems N Kidney or Bladder Problems N GI Problems N Skin Problems N Anemia N Heart Attack ([place]) N Diabetes N Seizures/Epilepsy N Asthma Y Allergies N Hepatitis N Osteoporosis N Heart Failure N Gynecological HistoryNo gynecological history recorded. Obstetrics History GPAL:G 0 P 0 0 0 0 Immunizations Vaccine Type Date Status Note Provider Nam e and Address Organization Details Recorded Time Influenza, split virus, quadrivalent, preservative 5 completed Not Available [facility] 12/14/2019 02:40:21 Past Encounters Encounter ID Performer Location Encounter Start Date Encounter Closed Date Diagnosis/Indication Diagnosis SNOMED-CT Code Diagnosis ICD10 Code Diagnosis Note [id number] Katelin Macdonald (Adult Med) [address] [place] [address] 10/13/2015 09:33:34 10/13/2015 11:00:15 Adult health examination 153911500 Z00.01 Encourage well balanced meals, active lifestyle, and routine vision/den paco/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 Mood swings 03724123 R45 .86 Citalopram 20 mg daily. Referring to psych. FU 1 month for citalopram eval. Administra tion of influenza vaccine 07141273 Z23 Flu shot today. Hyperlipid emia screening 691471299 Z13.220 lipid panel Increased thirst 2239961 03 R63.1 Screening for DM. Thyroid di sorder screening 162696778 Z13.29 Screening TSH Health Concerns Section Related Observation LastModified by Organization Detai ls LastModified Time None Recorded Concern Status LastModified by Organization Details LastModified Time None Recorded Advance Directives Directive None Recorded Payers Encounter Date Sequence Insurance Name Policy Number Policy [place] Covered Member ID [place] Member ID Guarantor Name 10/13/2015 1 [facility] PRIOR TO 05/27/2021 (MEDICAID REPLACEMENT - HMO) Nikki Deterding [id number] Nikki Deterding Notes Date Note Type Note Provider Name and Address Organization Details Recorded Time 10/13/2015 text/html 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 Will check on Tdap. Well exam today 10/13/15. Father of children in the [employer] stationed in [place]. He is with another child on the way and that makes situation difficult for patient. 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 Katelin Georges [facility] 10/13/2015 10:38:43 OBGyn Episode No OBEpisode recorded.
--- OUTSIDE RECORDS SUMMARY | 2025-02-17 01:46 | XMS_ITS | Clinical Summary ---
Author Organization [facility] Address [facility] [place] [address] Care Team Providers Care Cook Tortilla Name Role Phone Unavailable Primary Care Provider Unavailabl e Social History Tobacco Use Types Packs/Day Years Used Date Smoking Tobacco: Never Assessed Comments Unknown Sex and Gender Information Value Date Recorded Sex Assigned at Not on file Legal Sex Female 7:54 PM CDT Gender Identity Not on file Sexual Orientation Not on file Plan of Treatment Health Maintenance Due Date Last Done Comments Cervical Cancer Screening Pa p Smear (Age 30 to 64) Every 3 Years 1988 Annual Physical 1991 Hepatitis C 2006 DTaP, Tdap and Td Vaccines ( 1 - Tdap) 2007 Hepatitis B Vaccines (1 of 3 - 19+ 3-dose series) 2007 Cervical Cancer Screening Pa p with HPV Testing (Age 30 to 64) Every 5 Years 2018 Cervical Cancer Screening with HPV 2018 COVID-19 Vaccine (2023-2 5 season) 2024 Influenza Adult (#1) 2024 HPV Vaccines Aged Out No longer eligi ble based on patient's age to complete this topic Meningococcal B Vaccine Aged Out No l onger eligible based on patient's age to complete this topic Meningococcal Vaccine Aged Out No kashif tiffanie eligible based on patient's age to complete this topic Pneumococcal Vaccine: Pediat rics (0 to 5 Years) and At-Risk Patients (6 to 64 Years) Aged Out No longer eligible b ased on patient's age to complete this topic RSV Immunizations Under 20 Months Aged Out No longer eligible based on patient's age to complete this topic
--- OUTSIDE RECORDS SUMMARY | 2025-02-17 01:46 | XMS_ITS | Clinical Summary ---
Author Organization [facility] Care Team Providers Care Road Crossing Guard Name Role Phone Shukri Cavazos Primary Care Provider [phone] Joni Agudelo MD Unavailable Social History Tobacco Use Types Packs/Day Years Used Date Smoking Tobacco: Never Assessed Comments Unknown Sex and Gender Information Value Date Recorded Sex Assigned at Not on file Legal Sex Female 11:35 PM CDT Gender Identity Not on file Sexual Orientation Not on file Plan of Treatment Upcoming Encounters Date Type Department Care Team (Late st Contact Info) Description 02/19/2025 2:30 PM CDT Office Visit [facility] [address] [address] Joni Agudelo MD [address] [place] [phone] Health Maintenance Due Date Last Done Comments Hepatitis C Virus (HCV) Screening 1988 TdaP Immunization 1988 Hepatitis B Immunization (1 of 3 - 19+ 3-dose series) 2007 Influenza Immunization (#1) 2024 10/13/2015 SARS-COV-2 Immunization (3 - 2023- season) 2024 03/18/2021, 02/25/2021 Respiratory Syncytial Virus (RSV) Immunization (Adult) (1 - 1-dose 75+ series) 2063 Meningococcal Immunization (ACWY) Aged Out No longer eligible b ased on patient's age to complete this topic Pneumococcal Immunization Combined Aged Out No longer eligible b ased on patient's age to complete this topic Rotavirus Immunization Aged Out No lo nger eligible based on patient's age to complete this topic Insurance [facility] Care Teams Road Crossing Guard Relationship Specialty Start Date End Date Shukri Cavazos [address] [place] [address] PCP - General Family Medicine 02/11/25 Joni Agudelo MD [address] [place] [address] Consulting Physician Oncology 02/11/25
--- OUTSIDE RECORDS SUMMARY | 2025-02-17 01:46 | XMS_ITS | Clinical Summary ---
Author Organization [facility] Address [address] [place] [address] Care Team Providers Care Builder'S Labourer Name Role Phone Madonna Trent MD Primary Care Provider Allergies No known active allergies Medications traZODone (DESYREL) 100 mg tabletIndicatio ns:Psychophysio logic insomnia Take 0.5-1 tablets (50-100 mg total) by mouth nightly as needed for sleep 90 tablet 3 05/24/2024 Active escitalopram (LEXAPRO) 20 mg tabletIndicatio ns:PRISCILA (generalized anxiety disorder),Curre nt severe episode of major depressive disorder without psychotic features without prior episode ([facility]) TAKE 1 TABLET BY MOUTH EVERY DAY 30 tablet 09/23/2024 Active Active Problems Problem Noted Date Diagnosed Date Current moderate episode of major depressive disorder without prior episode 01/24/2023 PRISCILA (generalized anxiety disorder) 01/24/2023 Vulvovaginal candidiasis 01/06/2022 Resolved Problems Problem Noted Date Diagnosed Date Resolved Date Gallstone pancreatitis 01/06/202201/24 Immunizations Immunization Administration Dates Next Due Influenza, Quadrivalent, Split, Intramuscular Pfizer SARS-CoV-2 Monovalent Vaccination (12+ Yrs) PURPLE 03/27/2021,03/18/2021 Surgical History Surgery Date Site/Laterality Comments SECTION 11/27/2008 - 11/26/2009 SECTION 11/27/2009 - 11/26/2010 ORTHOPEDIC SURGERY 09/10/2021 left forearm fx ORIF CHOLECYSTECTOMY 01/07/2022 SECTION 06/15/2022 TONSILLECTOMY TUBAL LIGATION PARTIAL HYSTERECTOMY 08/2023 Medical History Medical History Date Comments No pertinent past medical history Family History Medical History Relation Name Comments Diabetes Maternal Grandmother Heart attack Maternal Grandmother Hypertension Maternal Grandmother Diabetes Mother Hypertension Mother Stroke Mother Thyroid disease Mother Breast cancer Neg Hx Colon cancer Neg Hx Relation Name Status Comments Maternal Grandmother Mother Social History Tobacco Use Types Packs/Day Years Used Date Smoking Tobacco: Never Smokeless Tobacco: Never Tobacco Cessation:Counseling Given: Not Answered AUDIT-C Answer Date Recorded Q1: How often do you have a drink containing alc ohol? 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 Gender Identity Not on file Sexual Orientation Not on file Obstetrics History Para Term AB IAB SAB Ectopic Multiple Livin g Live Births 3 2 2 1 1 2 2 Date Outcome GA Total Labor Labor/2nd/3rd Weight Sex Type Anes PTL Olga A1 A5 Name Clin 2008 Term 39w 0d 3.062 kg (6 lb 12 oz) F CS-LT ranv Spinal ,Epidu ral Livnic Carrasco Complications:Post He morrhage Delivery Location:[facility] 2009 Term 39w 0d 4.536 kg (10 lb) M CS-LT ranv Spinal Leanne Carrasco Delivery Location:[place] 2010 SAB 8w0 d Last Filed Vital Signs Vital Sign Reading Time Taken Comments Blood Pressure 119/80 03/27/2024 3:26 PM CDT Pulse 70 03/27/2024 3:26 PM CDT Temperature 37 C (98.6 F) 08/04/2022 12:55 AM CDT Respiratory Rate 15 08/04/2022 12:5 5 AM CDT Oxygen Saturation 98% 08/04/2022 12: 55 AM CDT Inhaled Oxygen Concentration - - Weight 78.4 kg (172 lb 14.4 oz) 03/27/2024 3:26 PM CDT Height 157.5 cm (5' 2 ) 03/27/2024 3:26 PM CDT Body Mass Index 31.62 03/27/2024 3:26 PM CDT Plan of Treatment Health Maintenance Due Date Last Done Comments Cervical Cancer Screening 1988 Hepatitis C Screening 1988 DTaP/Tdap/Td Vaccine (1 - Tdap) 1999 Varicella Vaccines (1 of 2 - 13+ 2-dose series) 2001 Hepatitis B Screening 2006 Regular Well Visit/Exam 18-64 2006 Covid-19 Vaccine ( season) 2024 03/27/2021, 03/18/2021, 02/25/2021 Influenza Vaccine (#1) 2024 10/13/2015 Depression Screening 03/27/2025 03/27/2024, 03/27/2024, 02/14/2024, Additional history exists HPV Vaccines Aged Out No longer eligi ble based on patient's age to complete this topic Pneumococcal vaccine <65 Aged Out No longer eligible based on patient's age to complete this topic Insurance Member Subscriber Plan / Payer (Ef fective 2021-Present) Name:Nikki Schuster Relation to Subscriber:Self Name:Nikki Schuster Payer ID:[id number] (NAIC) Type:[employer] Address: [facility] [id number] [address] ANTHEM ACCESS Advance Directives For more information, please contact: [phone] * Full Code (Latest Code Status on File) Date Activated Date Inactivated Comments 01/06/2022 12:31 AM 01/07/2022 10:21 PM Care Teams Builder'S Labourer Relationship Specialty Start Date End Date Madonna Trent MD PCP - General Family Practice 01/24/23
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
--- OUTSIDE RECORDS SUMMARY | 2025-02-17 01:46 | XMS_ITS | Referral Summary ---
Author Organization [facility] Address [address] [place] [address] Care Team Providers Care Technical Rep Name Role Phone Madonna Trent MD Primary Care Provider Allergies No known active allergies Medications traZODone (DESYREL) 100 mg tabletIndicatio ns:Psychophysio logic insomnia Take 0.5-1 tablets (50-100 mg total) by mouth nightly as needed for sleep 90 tablet 3 05/24/2024 Active escitalopram (LEXAPRO) 20 mg tabletIndicatio ns:PRISCILA (generalized anxiety disorder),Curre nt severe episode of major depressive disorder without psychotic features without prior episode ([facility]) TAKE 1 TABLET BY [...] SARS-CoV-2 Monovalent Vaccination (12+ Yrs) PURPLE 03/27/2021,03/18/2021 Social History Tobacco Use Types Packs/Day Years [...] on file 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 [id number] ANTHEM ACCESS Advance Directives For more information, please contact: [phone] * Full Code (Latest Code Status on File) Date Activated Date Inactivated Comments 01/06/2022 12:31 AM 01/07/2022 10:21 PM Care Teams Technical Rep Relationship Specialty Start Date End Date Madonna Trent MD PCP - General Family Practice 01/24/23
[2025-04-02 10:30] VITALS: BMI 32.3
--- OUTSIDE RECORDS SUMMARY | 2025-04-10 02:50 | XMS_ITS | Clinical Summary ---
Author Organization [facility] Address [facility] [place] [address] Care Team Providers Care Overnight Associate Name Role Phone Unavailable Primary Care Provider [...]
--- OUTSIDE RECORDS SUMMARY | 2025-04-10 02:50 | XMS_ITS | Clinical Summary ---
Author Organization [facility] [employer] Address [address] [place] [address] Care Team Providers Care Press Helper Name Role Phone Unavailable Primary Care Provider Unavailabl e Source Comments [facility] [employer],non-owned Affiliates and Associated Physician Practices is amultiple site organization consisting of ambulatory clinics and hospital sitesin [place], [place], [place] and [place]. This disclosure is being madepursuant to the Care Everywhere program and may not contain all information available regarding this patient. Last updated 18.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 Gender Identity Not on file Sexual Orientation [...] this topic Medical Devices Implanted Type Area Suspender Cutter Device Identifier Shelf Expiration Date Model / Serial / Lot Screw 2.7mm 12mm T8 Cortx Evos Mini Ss Implanted:Qty: 3 on 09/10/2021 by Crys Angela MD at [facility] Left: Arm [employer] [id number] / / Screw 2.7mm 4.5mm 13mm T8 Drvr 2 End Drl Implanted:Qty: 2 on 09/10/2021 by Crys Angela MD at [facility] Left: Arm [employer] [id number] / / Screw 2.7mm 4.5mm 14mm T7 Slfret Scrdrvr Implanted:Qty: 1 on 09/10/2021 by Crys Angela MD at [facility] Left: Arm [employer] [id number] / / Screw 3.5mm 12mm Slf-Tap Cortx Evos Strl Implanted:Qty: 3 on 09/10/2021 by Crys Angela MD at [facility] Left: Arm [employer] [id number] / / Screw 3.5mm 13mm Slf-Tap Cortx Evos Strl Implanted:Qty: 1 on 09/10/2021 by Crys Angela MD at [facility] Left: Arm [employer] [id number] / / Screw 3.5mm 14mm Slf-Tap Cortx Evos Strl Implanted:Qty: 1 on 09/10/2021 by Crys Angela MD at [facility] Left: Arm [employer] [id number] / / Screw 3.5mm 17mm Slf-Tap Cortx Evos Strl Implanted:Qty: 1 on 09/10/2021 by Crys Angela MD at [facility] Left: Arm [employer] [id number] / / 2.7mm Compression Plate Implanted:Qty: 1 on 09/10/2021 by Crys Angela MD at [facility] Left: Arm [employer] [id number] / / Insurance ANTHEM TP THIRD CONSTITUTION PARTY LIABILITY [employer] Li[employer] ANTHEM Advance Directives * Full Code (Latest Code Status on File) Date Activated Date Inactivated Comments 09/11/2021 5:37 PM 09/13/2021 12:33 PM
--- OUTSIDE RECORDS SUMMARY | 2025-04-10 02:50 | XMS_ITS | Clinical Summary ---
Author Organization [facility] Address [address] [place] [address] Phone Care Team Providers Care Senior Climate Advisor Name Role Phone Shukri Cavazos Primary Care [...] CDT Clinical Support [facility] [address] [address] [facility], unspecified iron deficiency anemia type (Primary Dx) 03/03/2025 Travel 02/21/2025 Results Follow-Up [facility] [address], [address] [place] [address] Joni Agudelo MD RETICULOCYTE COUNT (RETIC), IRON W/ IRON BINDING CAPACITY [place], FERRITIN, Additional followed-up results: 2 02/19/2025 2:50 PM CDT Lab [facility] [address] [address] Lab, Cc Kaley Iron deficiency 02/19/2025 2:30 PM CDT Office Visit [facility] [address] [phone] Joni Agudelo MD Iron deficiency (Primary Dx); [...] PM CDT Lab [facility] [address] [id number] Lab, Jennifer Roche [place] 04/23/2025 2:30 PM CDT Office Visit [facility] [address] [phone] Joni Agudelo MD [address] [place] [id number] Health Maintenance Due Date Last Done Comments [...] IRON 45(L) 50 - 212 ug/dL [facility] UIBC 370(H) 155 - 355 ug/dL [facility] TIBC 415 261 - 478 ug/dl [facility] % Saturation 11(L) 20 - 50 % [facility] 02/19/2025 2:48 PM CDT Narrative [facility] - 02/19/2025 3:38 PM CDT Release to patient->Immediate us Joni Agudelo MD LAB SEND OUTS Final Result [facility] AP[facility] [place] [address], * CELIAC DISEASE COMPREHENSIVE AL (02/19/2025 2:48 PM CDT) DEAMIDATED GLIADIN ABS, IGA 4 0 - 19 UNITS [facility] Comment: NEGATIVE 0 - 19 WEAK POSITIVE 20 - 30 MODERATE TO STRONG POSITIVE >30 DEAMIDATED GLIADIN ABS, IGG 2 0 - 19 UNITS [facility] Comment: NEGATIVE 0 - 19 WEAK POSITIVE 20 - 30 MODERATE TO STRONG POSITIVE >30 T-TRANSGLUTAMINASE (TTG) IGA <2 0 - 3 U/ML [facility] Comment: NEGATIVE 0 - 3 WEAK POSITIVE 4 - 10 POSITIVE >10 TISSUE TRANSGLUTAMINASE (TTG) HAS BEEN IDENTIFIED THE ENDOMYSIAL ANTIGEN. STUDIES HAVE DEMONSTR- ATED THAT ENDOMYSIAL IGA ANTIBODIES HAVE OVER 99% SPECIFICITY FOR GLUTEN SENSITIVE ENTEROPATHY. T-TRANSGLUTAMINASE (TTG) IGG 4 0 - 5 U/ML [facility] Comment: NEGATIVE 0 - 5 WEAK POSITIVE 6 - 9 POSITIVE >9 ENDOMYSIAL ANTIBODY IGA NEGATIVE NEGATIVE [facility] IMMUNOGLOBULIN A, QN, SERUM 188 87 - 352 MG/DL [facility] 02/19/2025 2:4 8 PM CDT Narrative [facility] - 02/20/2025 3:08 PM CDT TESTING PERFORMED AT: [] [facility], [address] [place] [address], [address], PHONE: [phone], HEATING AND BLENDING SUPERVISOR: SILVANO BROOKS, PHD Joni Agudelo MD LAB SEND OUTS Final Result [facility] [address] [place] [address], * RETICULOCYTE COUNT (RETIC) (02/19/2025 2:48 PM CDT) Reticulocyte count 0.81 0.50 - 1.70 % [facility] RET-He 33.90 28.20 - 36.60 pg [facility] Comment: RET-He is a direct assessment of incorporation of iron into erythrocyte hemoglobin. It provides an indirect measure of the iron available for new erythropoiesis over past 2-4 days. Blood 02/19/2025 2:48 PM CDT [facility] - 02/19/2025 3:00 PM CDT Release to patient->Immediate Joni Agudelo MD HEMATOLOGY ORDERABLES Final Resu lt Performing Organization Address City/[facility]/ZIP Co de Phone Number [facility] [place] [address], * FERRITIN (02/19/2025 2:48 PM CDT) Pathologist [facility] Ferritin 14 11 - 307 ng/mL [facility] Blood 02/19/2025 2:48 PM CDT [facility] - 02/20/2025 3:23 PM CDT Release to patient->Immediate Joni Agudelo MD CHEMISTRY ORDERABLES Final Resul t [facility] [place] [address], * (ABNORMAL) COMPLETE BLOOD COUNT (CBC) WITH DIFF (02/19/2025 2:48 PM CDT) WBC 8.5 4.0 - 10.0 10*3/uL [facility] HGB 12.8 11.2 - 15.7 g/dL [facility] HCT 38.5 34.1 - 44.9 % [facility] PLT 339 163 - 369 10*3/uL [facility] MPV 10.1 9.4 - 12.4 fL [facility] RBC 4.34 3.93 - 5.22 10*6/uL [facility] MCV 89 79 - 95 fL [facility] MCH 29.5 25.6 - 32.2 pg [facility] MCHC 33.2 32.2 - 36.5 g/dL [facility] RDW 13.3 11.6 - 14.4 % [facility] Absolute Neutrophil Count 6,353 cells/uL [facility] Absolute Seg Count 6,353 1,440 - 6,600 cells/uL [facility] Absolute Lymph Count 1,694 760 - 4,000 cells/uL [facility] Absolute [place] Count 339 160 - 1,200 cells/uL [facility] Segmented Neutrophils 75(H) 36 - 66 % [facility] Lymphocytes 20 19 - 40 % [facility] Monocytes 4 4 - 12 % [facility] Metamyelocytes 1 0 - 2 % CANCE R [facility]EL[facility] WBC Estimate Normal [facility] Platelet Estimate Normal CA NCER [facility] RBC Morphology Normal [facility] R [facility] Blood 02/19/2025 2:48 PM CDT Narrative [facility] - 02/19/2025 3:49 PM CDT Release to patient->Immediate us Joni Agudelo MD HEMATOLOGY ORDERABLES Final Resu lt [facility] [place] [address], from Last 3 Months Insurance [facility] Care Teams Senior Climate Advisor Relationship Specialty Start Date End Date Shukri Cavazos [address] [place] [address] PCP - General Family Medicine 02/11/25 Joni Agudelo MD [address] [place] [address] Consulting Physician Oncology 02/11/25
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
--- OUTSIDE RECORDS SUMMARY | 2025-04-10 02:50 | XMS_ITS | Referral Summary ---
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 ([facility]) TAKE 1 TABLET BY MOUTH EVERY DAY [...] on file 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 Gender Identity Not on file Sexual Orientation [...] Plan of Treatment Not on file Insurance * Guarantor: Nikki Schuster Account Type Relation to Patient Date of Phone Billing Address Personal/Family Self 1990 [address] [place] [address] [employer] Member Subscriber Plan / Payer (Ef fective 2021-Present) Name:Nikki Schuster Relation to Subscriber:Self Name:Nkiki Schuster Payer ID:[id number] (NAIC) Type:[employer] Address: [facility] [id number] [place] ACCESS Advance Directives For more information, please contact: [phone] * Full Code (Latest Code Status on File) Date Activated Date Inactivated Comments 01/06/2022 12:31 AM 01/07/2022 10:21 PM Care Teams Automotive Center Manager Relationship Specialty Start Date End Date Madonna Trent MD PCP - General Family Practice 01/24/23
--- OUTSIDE RECORDS SUMMARY | 2025-04-10 02:50 | XMS_ITS | Clinical Summary ---
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 Gender Identity Not on file Sexual Orientation [...] ral Livnic Carrasco Complications:Post He morrhage Delivery Location:[facility] 2009 Term 39w 0d 4.536 kg (10 lb) M CS-LT ranv Spinal Leanne Carrasco Delivery Location:[place] 2010 SAB 8w0 d Last Filed Vital [...] Vaccine ( season) 2024 03/27/2021, 03/18/2021, 02/25/2021 Depression Screening 03/27/2025 03/27/2024, 03/27/2024, 02/14/2024, Additional history exists Influenza Vaccine (Season Ended) 2025 10/13/2015 HPV Vaccines Aged Out No longer eligi ble based on patient's age to complete this topic Pneumococcal vaccine <65 Aged Out No longer eligible based on patient's age to complete this topic Insurance [facility] OOS Member Subscriber Plan / Payer (Ef fective 2021-Present) Name:Nikki Schuster Relation to Subscriber:Self Name:Nikki Schuster Payer ID:[id number] (NAIC) Type:[facility] Address: [facility] [id number] [place] [place] ACCESS Advance Directives For more information, please contact: [phone] * Full Code (Latest Code Status on File) Date Activated Date Inactivated Comments 01/06/2022 12:31 AM 01/07/2022 10:21 PM Care Teams Copper Tapper Relationship Specialty Start Date End Date Madonna Trent MD PCP - General Family Practice 01/24/23
--- OUTSIDE RECORDS SUMMARY | 2025-04-10 02:50 | XMS_ITS | Continuity of Care Document ---
Author Organization [facility] Address [address] [facility] [place] [address] Phone Care Team Providers Care Tire Debeader Name Role Phone Shukri Cavazos MD Unavailable [...] VISIT, EST OFFICE/OUTPATIENT VISIT, EST OFFICE/OUTPATIENT VISIT, NEW PREV VISIT, NEW, AGE 18-39 Advance Directives Directive Yes / No Effective Date File Name No Information Encounters Encounter Description Practice Location Reason(s) For Visit Diagnoses Date Provider Providers Copied on Encounter OFFICE/OUTPA TIENT VISIT, [facility], [address] [facility] [address] [facility] [place], [address], [place] tel:[phone] [facility] Medicine UTI1 (chief complaint) rectal1 (chief complaint) iron (chief complaint) dyslexia (chief complaint) anxiety1 (chief complaint) Iron deficiencyGeneraliz ed Anxiety DisorderAcute cystitis without hematuriaProctitisD yslexia 5 Dirk Watt. [address] [place], [place], [address] , [place]. tel:[phone] OFFICE/OUTPA TIENT VISIT, [facility], [address], [place], [place], [address], [place] tel:[phone] [facility] thyroid (chief complaint) HLP (chief complaint) iron (chief complaint) anxiety1 (chief complaint) Restless legs syndromeIron deficiencyGeneraliz ed Anxiety DisorderMixed hyperlipidemiaDisor esa of thyroid, unspecified Jan- 5 Dirk Watt. [address], [place], [place], [address] , [place]. tel:[phone] OFFICE/OUTPA TIENT VISIT, [facility], [address], [place], [place], [address], [place] tel:[phone] [facility] physical (chief complaint) Encounter for general adult medical exam w abnormal findingsFatigueAbno rmal weight gainGeneralized Anxiety DisorderRestless legs syndrome 5 Dirk Watt. [address], [place], [place], [address] , [place]. tel:[phone] Family History Family Member Type Diagnosis Age At Onset Mother Problem DM, HTN thyroid disease, dep ression Mother Problem CVA 60s Problem Family history o f partial hysterectomy due to endometriosis 2022 Father Problem unknown Brother Problem Alive and well Payers Payer name Insurance type Covered libertarian ID Authoriza tion(s) BCBS CI [id number] Social History Type Description Quantity Date Captured [...] And Reason For Visit From encounter dated '03/27/2025 15:35'. UTI1 (chief complaint). Description: Pt recently went to ER for UTI and she was treated with cefdinir and her UTI symptoms resolved. rectal1 (chief complaint). Description: Pt had CT done which showed minimal fat stranding around the rectum with wall thickening and possible proctitis .Pt denies any GI issue Pt has jami for EGD and colonoscopy soon iron (chief complaint). Description: Pt has iron deficiency Pt saw dynamite packing machine feeder and received iron infusion recently Pt feels less fatigue dyslexia (chief complaint). Description: Pt has dyslexia with chronic learning disorder and she hasdifficulty comprehend reading. Pt is studying [employer] now at [employer] and she needs letter for special IEP program anxiety1 (chief complaint). Description: Pt has chronic anxiety and depression Pt takes wellbutrin and lexapro and she is doing better Pt denies any suicidal or homicidal thought Pt denies any cryingspells Plan Of Treatment Date Type Action Status Referral Ordered: Hematology (related to Iron deficiency) ordered Referral Ordered: COLONOSCOPY AND BIOPSY ordered Referral Ordered: Referrals: Hematology. Evaluate and treat ordered History Of Present Illness Encounter Date Complaint History Of Prese nt Illness UTI1 Pt recently went to ER for UTI and she was treated with cefdinir and her UTI symptoms resolved. rectal1 Pt had CT done w hich showed minimal fat stranding around the rectum with wall thickening and possible proctitis .Pt denies any GI issue Pt has jami for EGD and colonoscopy soon iron Pt has iron defi ciency Pt saw dynamite packing machine feeder and received iron infusion recently Pt feels less fatigue dyslexia Pt has dyslexia with chronic learning disorder and she has difficulty comprehend reading. Pt is studying [employer] now at [employer] and she needs letter for special IEP program anxiety1 Pt has chronic a nxiety and depression Pt takes wellbutrin and lexapro and she is doing better Pt denies any suicidal or homicidal thought Pt denies any crying spells thyroid Pt has family hi story of [...] No Information Assessments Type Assessment Date assessment Iron deficiency assessment Generalized Anxiety Disorder March assessment Acute cystitis without hematuria assessment Proctitis assessment Dyslexia Mental Status Date Cognitive Assessment Orientation - Hollister ed to time, place, person, situation.
--- OUTSIDE RECORDS SUMMARY | 2025-04-10 02:50 | XMS_ITS | Data Portability ---
Author Organization [facility] Address [address] [place] [address] Assessment No assessment recorded. Plan of Treatment Reminders Order Date Submit Date Provider Last Modified By Organization Details Last Modified Time Details Appointments None recorded. Lab lipid panel, serum 2014 015 [facility], [address], [address], [place], [address], 5 10:38:25 CMP, serum or plasma 2014 015 [facility]ogue [facility], [address], [address], [place], [address], 5 10:38:25 CBC w/ auto diff 2014 015 [facility], [address] [place] [address], [address], [place], [address], 5 10:38:25 TSH, serum or plasma 2014 015 [facility]ogue [facility], [address], [address], [place], [address], 5 10:38:[address] referral - ADD and previously on Adderall. sound controller with trouble concentrat ing/focusi ng.Please call patient with apt. 2014 015 MARK Wilde MD, [address] [place], [address], 5 16:30:16 Procedures None recorded. Surgeries None recorded. Imaging None recorded. Medication Orders citalopram 20 mg tablet 2014 015 [id number], [address], [place], [place], [id number], 5 10:38:25 Patient TargetsNo targets recorded. Patient Instructions Encounter Date Encounter Id Patient Instructions Last Modified By Organization Details Last Modified Time 10/13/2015 [id number] influenza (flu) vaccine: care instructions dbogue Not available 10/13/2015 10:38:25 Reason for Referral Psychiatrist Referral for Mo od swings ADD and previously on Adderall. sound controller with trouble concentrating/focusing.Please call patient with apt. Referring Physician: Katelin Georges, [facility], Encounter Date: 10/13/2015 Problems Name Problem SNOMED Code Status Onset Date Resolution Date Notes Provider Name and Address Organization Details Recorded Time Mood swings 26522801 Active Katelin [place]ma [place] [facility] 5 10:38:25 Increased thirst 538941546 Active Katelin sharma [place] [facility] 5 10:38:25 Problem Notes None recorded. Procedures Surgical History Date Name Laterality Status Provider Name and Address Organization Details Recorded Time 08/13/20 10 Caesarean Section completed Katelin [facility] 10/13/2015 10:05:44 09/19/20 09 Caesarean Section completed Katelin MOSER - [facility] 10/13/2015 10:05:44 11/27/18 94 Tonsillectomy completed Katelin MOSER - [facility] 10/13/2015 10:05:44 Imaging Results None [...] Address Organization Details Last Updated DateTime 5 13051.1 93101 g 100 % 100 % 157.48 cm 27.9 kg/m2 98 [degF] 112 /min 102 mm[Hg] 62 mm[Hg] Uvaldo Coppola MA [facility] 5 09:50:29 Social History Question Answer Notes LastModified by WillCall Details LastModified Time Tobacco Smoking Status Never Smoker Uvaldo Coppola MA null, [facility] 10/13/2015 09:51:50 What Is Your Level Of Caffeine Consumption? Occasional [email or web address] Information not available 10/13/2015 What Type Of Diet Are You Following? REGULAR [email or web address] Information not available 10/13/2015 How Much Tobacco Do You Smoke? No [email or web address] Information not available 10/13/2015 General Stress Level Medium Information not available 10/13/2015 Sex: Unknown Functional Status Question Answer Note LastModified by WillCall Details LastModified Time What is your level of alcohol consumption? Occasional [email or web address] Information not available 10/13/2015 What is your exercise level? None [email or web address] Information not available 10/13/2015 Mental Status None recorded. Family History Relationship Description Onset Age of this Age Resolved Age Notes LastModified by Organization Details LastModified Time Mother Diabetes mellitus [email or web address] Not available 2014 09:52:49 Mother Disorder of thyroid gland [email or web address] Not available 2014 09:52:49 Mother Hypertensive disorder [email or web address] Not available 2014 09:52:49 Medical History Condition Response Coronary Artery Disease N Other N High Blood Pressure N Atrial Fibrillation N Thyroid Problems N Kidney or Bladder Problems N GI Problems N Depression N COPD N Blood Clots N Skin Problems N Anemia N Heart Attack ([place]) N Anxiety Disorder N Diabetes N Muscle, Joint, or Bone Problems Y Seizures/Epilepsy N Acid Reflux (GERD) N Cancer N Stroke N Asthma Y Allergies N High Cholesterol N Hepatitis N Liver Disease N Headaches N Osteoporosis N Heart Failure N Gynecological [...] SNOMED-CT Code Diagnosis ICD10 Code Diagnosis Note [id number] DENZEL PerrinP- Renae (Adult Med) [address] [place] [address] 10/13/2015 09:33:34 10/13/2015 11:00:15 Adult health examination 805372367 Z00.01 Encourage well balanced meals, active lifestyle, and routine vision/den paco/flush tester apts. Mood swings 49508008 R45 .86 Citalopram 20 mg daily. Referring to psych. FU 1 month for citalopram eval. Administra tion of influenza vaccine 33072650 Z23 Flu shot today. Hyperlipid emia screening 625236291 Z13.220 lipid panel Increased thirst 2095368 03 R63.1 Screening for DM. Thyroid di sorder screening 712418967 Z13.29 Screening TSH Health Concerns Section Related Observation LastModified by Organization Detai ls LastModified Time None Recorded Concern Status LastModified by Organization Details LastModified Time None Recorded Advance Directives Directive None Recorded Payers Encounter Date Sequence Insurance Name Policy Number Policy [place] Covered Member ID [place] Member ID Guarantor Name 10/13/2015 1 [facility] - DOS PRIOR TO 2021 (MEDICAID REPLACEMENT - HMO) Nikki Deterding [id number] Nikki Deterding Notes Date Note Type Note Provider Name and Address Organization Details Recorded Time 10/13/2015 text/html 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 Will check on Tdap. Well exam today 10/13/15. Father of children in the [employer] stationed in [place]. He is with another child on the way and that makes situation difficult for patient. 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 Katelin Georges [facility] [place] - [facility] 10/13/2015 10:38:43 OBGyn Episode No OBEpisode recorded.
[2025-04-10 12:10] VITALS: BP 110/66; PULSE 85; RESP 12; TEMP 36.7; O2SAT 100; BMI 31.6
--- NOTE | 2025-04-10 12:21 | SUR.PREOP ---
was notified that patient stated they had [address] will proceed with procedure.
--- NOTE | 2025-04-10 12:21 | WPDANESEPPF ---
Anes - Initial Pre Proc Eval Procedure: Operation Date: 04/10/25 13:30 Proposed Procedures p Esophagogastroduodenoscopy & Colonoscopy - Guanako Ballesteros MD Date/Time: 04/10/25 12:21 Surgeon: Guanako Ballesteros MD Pre Op Diagnosis: Iron deficiency Patient Data Age: 34 Gender: F Height: 1.57 m Weight: 78.5 kg Last Vital Signs Temp 36.7 C 04/10/25 12:10 Pulse 85 04/10/25 12:10 Resp 12 04/10/25 12:10 BP 110/66 04/10/25 12:10 Pulse Ox 100 04/10/25 12:10 O2 Del Method Room Air 04/10/25 12:10 Allergies Allergy/AdvReac Type Severity Reaction Status Date / Time nitrofurantoin (From Allergy Intermediate Hives Verified 04/10/25 12:15 Macrobid) Home Medications Medication Instructions Recorded Confirmed Type fluoxetine 20 mg capsule (Prozac) 40 mg (2 x 20 mg) PO DAILY 90 days 12/03/24 04/10/25 Rx #180 caps bupropion HCl 150 mg 24 hr tablet, 150 mg PO DAILY 02/13/25 04/10/25 History extended release cefdinir 300 mg capsule 300 mg PO Q12H 10 days #20 caps 03/13/25 04/10/25 Rx cephalexin 500 mg capsule 500 mg PO DAILY #60 caps 03/25/25 04/10/25 Rx Patient hx anesthesia problems: none Family hx anesthesia problems: none Results Review: All pre-operative results and documents have been reviewed as part of the pre-operative evaluation. 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 Hx of trichomoniasis 2018 History of chlamydia 2017 No pertinent past medical history Surgical History Surgical History History of gynecologic surgery Robotic assisted supracervical hysterectomy, bilateral salpingectomy, lysis of adhesions, and cystoscopy History of hysteroscopy Hscope - DC and Ablation - 04/10/2023 History of cholecystectomy 01/07/2022 History of orthopedic surgery left arm broken puneet and screws placed 09/10/2021 S/P tubal ligation 06/15/2022 - C- section and tubal S/P repeat low transverse repeat xs 2 07/2010 & 05/2022 Previous section primary C/S- lack of progress - completely dilated and was unable to deliver vaginally after pushing Family History Family History Mother Hypertension Social History Social History Smoking status: Never smoker Alcohol intake: current Substance use: never Substance use type: marijuana Other substance usage details: Edibles Do You Feel Safe in your Home?: Yes Current Housing: Decline to Answer Concerned About Future Housing: Decline to Answer Difficulty Paying Gas/Electric Bills: Decline to Answer Difficulty Paying for Meds: Decline to Answer Currently Unemployed: Decline to Answer Education: Decline to Answer Difficulty w/ Childcare or Family Care: Decline to Answer Living arrangements: with friend(s) Additional living arrangements comments: CHILDREN - single Occupation/Education: occupation Additional occupation/education comments: quality Gender identity (if verbalized by the patient): Female Sexual Orientation (if Verbalized by the Patient): Straight or Heterosexual Spiritual care concerns: No Anes - Eval Final PreProcedure Day of Procedure 04/10/25 12:21 Patient weight: obese Heart: regular rate and rhythm Lungs: clear to auscultation Airway: Mallampati scale class II Neurological: alert and oriented Last oral intake: >/= 8 hours ASA classification: II Emergent: no Anesthetic plan: proceed Anesthesia type and monitoring: general GIVS and standard monitoring Results Review: All pre-operative results and documents have been reviewed as part of the pre-operative evaluation. Informed Consent: The patient's anesthetic plan and its attendant risks and benefits were discussed with the patient/family/POA. Questions were solicited and answers provided to the satisfaction of the patient/family/POA.
[2025-04-10] MEDS: LACTATED RINGERS 1,000 ML 150 ML IV CONT (12:28)
--- NOTE | 2025-04-10 12:54 | PM.HPGS ---
History of Present Illness History of Present Illness Consent: Risks, benefits, and alternatives have been discussed and questions answered. Patient agrees to proceed with procedure. 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 Hx of trichomoniasis 2018 History of chlamydia 2017 No pertinent past medical history Surgical History Surgical History History of gynecologic surgery Robotic assisted supracervical hysterectomy, bilateral salpingectomy, lysis of adhesions, and cystoscopy History of hysteroscopy Hscope - DC and Ablation - 04/10/2023 History of cholecystectomy 01/07/2022 History of orthopedic surgery left arm broken puneet and screws placed 09/10/2021 S/P tubal ligation 06/15/2022 - C- section and tubal S/P repeat low transverse repeat xs 2 07/2010 & 05/2022 Previous section primary C/S- lack of progress - completely dilated and was unable to deliver vaginally after pushing Family History Family History Mother Hypertension Social History Social History Smoking status: Never smoker Alcohol intake: current Substance use: never Substance use type: marijuana Other substance usage details: Edibles Do You Feel Safe in your Home?: Yes Current Housing: Decline to Answer Concerned About Future Housing: Decline to Answer Difficulty Paying Gas/Electric Bills: Decline to Answer Difficulty Paying for Meds: Decline to Answer Currently Unemployed: Decline to Answer Education: Decline to Answer Difficulty w/ Childcare or Family Care: Decline to Answer Living arrangements: with friend(s) Additional living arrangements comments: CHILDREN - single Occupation/Education: occupation Additional occupation/education comments: quality Gender identity (if verbalized by the patient): Female Sexual Orientation (if Verbalized by the Patient): Straight or Heterosexual Spiritual care concerns: No Meds Home Medications and Allergies Home Medications Medication Instructions Recorded Confirmed Type fluoxetine 20 mg capsule (Prozac) 40 mg (2 x 20 mg) PO DAILY 90 days 12/03/24 04/10/25 Rx #180 caps bupropion HCl 150 mg 24 hr tablet, 150 mg PO DAILY 02/13/25 04/10/25 History extended release cefdinir 300 mg capsule 300 mg PO Q12H 10 days #20 caps 03/13/25 04/10/25 Rx cephalexin 500 mg capsule 500 mg PO DAILY #60 caps 03/25/25 04/10/25 Rx Allergies Allergy/AdvReac Type Severity Reaction Status Date / Time nitrofurantoin (From Allergy Intermediate Hives Verified 04/10/25 12:15 Macrobid) Vital Signs Vital Signs - 24 hr 04/10/25 12:10 Temperature 98.1 F Pulse Rate 85 Respiratory Rate 12 Blood Pressure 110/66 Pulse Oximetry 100 Oxygen Delivery Room Air Exam Const: General: comfortable and no acute distress HENMT: Face/Nose/Sinus: Normal nares present Eyes: General: appearance normal, both eyes and all related structures Neck: Neck: no JVD Resp: Auscultation: clear to auscultation bilaterally Cardio: Rate: regular rate Rhythm: regular rhythm GI: Inspection: non-distended GI Palp: Yes Soft to palpation Skin: General skin exam: normal color Neuro: General: gait normal Speech: normal speech Extrem: General: normal to inspection Psych: Mental Status: mental status grossly normal Assessment and Plan Assessment and plan (1) Iron deficiency anemia: Code(s): D50.9 - Iron deficiency anemia, unspecified Status: Acute Assessment and Plan: egd and colonoscopy
--- NOTE | 2025-04-10 13:03 | SUR.OPER ---
E$GD end: 1300, colonoscopy start: 1303
[2025-04-10 13:12] VITALS: BP 110/66; PULSE 82; RESP 21; O2SAT 100
[2025-04-10 13:22] VITALS: BP 100/59; PULSE 74; RESP 21; O2SAT 100
[2025-04-10 13:32] VITALS: BP 104/62; PULSE 71; RESP 18; O2SAT 100
== END 2025-04-10 13:38 | disposition home or self-care (01) ==
PROVIDERS: PCP Emergency Medicine; Referring Provider Emergency Medicine; Visit Provider Internal Medicine Gastroenterology
PROC: 0DJ08ZZ Inspection of Upper Intestinal Tract, Via Natural or Artificial Opening Endoscopic (ICD-10-PCS; CPT 45378; principal; 2025-04-10 13:30)
DX: K29.50 Unspecified chronic gastritis without bleeding (principal); B96.81 Helicobacter pylori [H. pylori] as the cause of diseases classified elsewhere; D50.9 Iron deficiency anemia, unspecified; K64.8 Other hemorrhoids; F32.A Depression, unspecified; J45.909 Unspecified asthma, uncomplicated; F12.90 Cannabis use, unspecified, uncomplicated; E66.9 Obesity, unspecified; Z68.31 Body mass index [BMI] 31.0-31.9, adult; Z98.890 Other specified postprocedural states; Z90.49 Acquired absence of other specified parts of digestive tract; Z98.51 Tubal ligation status
CPT/HCPCS: 43239; 45378; 88305; J2704; J7120

== ENCOUNTER 2025-07-25 14:32 | Outpatient (CLI) | payer BC, SELFPAY ==
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
--- OUTSIDE RECORDS SUMMARY | 2025-05-14 12:38 | XMS_ITS | Continuity of Care Document ---
Author Organization [facility] Address [address] [place] [address] [place] [address] Phone Care Team Providers Care Grocery Worker Name Role Phone Shukri Cavazos MD Unavailable [...] route every morning 150 MG - Active Zoloft 100 mg tablet take 1 tablet by or al route every day 100 MG - Active Procedures Procedure Date OFFICE/OUTPATIENT VISIT, EST OFFICE/OUTPATIENT VISIT, EST OFFICE/OUTPATIENT VISIT, EST OFFICE/OUTPATIENT VISIT, NEW PREV VISIT, NEW, AGE 18-39 Advance Directives Directive Yes / No Effective Date File Name No Information Encounters Encounter Description Practice Location Reason(s) For Visit Diagnoses Date Provider Providers Copied on Encounter OFFICE/OUTPA TIENT VISIT, EST [facility], [address], [address], [place] tel:[phone] [facility] iron (chief complaint) anxiety1 (chief complaint) thyroid1 (chief complaint) Generalized Anxiety DisorderIron deficiencyDisorder of thyroid, unspecifiedGERD w/o esophagitis 5 Dirk Watt. [address], [address] , [place]. tel:[phone] OFFICE/OUTPA TIENT VISIT, [facility], [place], [facility], [address], [address], [place] tel:[phone] [facility] UTI1 (chief complaint) rectal1 (chief complaint) iron (chief complaint) dyslexia (chief complaint) anxiety1 (chief complaint) Iron deficiencyGeneraliz ed Anxiety DisorderAcute cystitis without hematuriaProctitisD yslexia 5 Dirk Watt. [address], [place], [place], [address] , [place]. tel:[phone] OFFICE/OUTPA TIENT VISIT, [facility], [place], [facility], [address] [place], [address], [place] tel:[phone] [facility] thyroid (chief complaint) HLP (chief complaint) iron (chief complaint) anxiety1 (chief complaint) Restless legs syndromeIron deficiencyGeneraliz ed Anxiety DisorderMixed hyperlipidemiaDisor esa of thyroid, unspecified 5 Dirk Watt. [address], [place], [place], [address] , [place]. tel:[phone] OFFICE/OUTPA TIENT VISIT, [facility], [address], [address], [place] tel:[phone] [facility] physical (chief complaint) Encounter for general adult medical exam w abnormal findingsFatigueAbno rmal weight gainGeneralized Anxiety DisorderRestless legs syndrome 5 Dirk Watt. [address], [place], [place], [address] , [place]. [phone] Family History Family Member Type Diagnosis Age At Onset Mother Problem DM, HTN thyroid disease, dep ression Mother Problem CVA 60s Problem Family history o f partial hysterectomy due to endometriosis 2022 Father Problem unknown Brother Problem Alive and well Payers Payer name Insurance type Covered republican ID Authoriza tion(s) BCBS CI [id number] Social History Type Description Quantity Date Captured [...] Pt denies any dysphagia or neck pain iron Pt has history o f iron [...] pain Pt denies any sugar GERD. anxiety1 Pt has chronic a nxiety and depression Pt takes prozac and wellbutrin but is not working anymore Pt feels very depressed and anxious and she has no motivation to even get out of bed in the morning Pt has been having crying spells Pt denies any suicidal or homicidal thought UTI1 Pt recently went to ER for UTI and she was treated with cefdinir and her UTI symptoms resolved. rectal1 Pt [facility] showed minimal fat stranding around the rectum with wall thickening and possible proctitis .Pt denies any GI issue Pt has jami for EGD and colonoscopy soon iron Pt has iron defi ciency Pt saw day habilitation specialist and received iron infusion recently Pt feels less fatigue dyslexia Pt has dyslexia with chronic learning disorder and she has difficulty comprehend reading. Pt is studying [employer] now at [employer] and she needs letter for special IEP program anxiety1 Pt has chronic a nxiety and depression Pt takes wellbutrin and lexapro and she is doing better Pt denies any suicidal or homicidal thought Pt denies any crying spells anxiety1 Pt has chronic a nxiety and [...] Mental Status Date Cognitive Assessment Orientation - [place] ed to time, place, person, situation.
--- OUTSIDE RECORDS SUMMARY | 2025-07-25 14:35 | XMS_ITS | Clinical Summary ---
Author Organization [facility] Address [address], [facility] [address] [place] [address] Phone Care Team Providers Care Annual Campaign Manager Name Role Phone Shukri Cavazos Primary Care Provider [phone] Joni Agudelo MD Unavailable Allergies Active Allergy Reactions Criticality Noted Date Comments Nitrofurantoin Hives 02/19/2025 Medications Wellbutrin XL 150 MG XL tablet Take 150 mg by mouth. 01/28/2025 Active PROzac 40 MG Capsule Take 40 mg by mouth daily. 12/09/2024 Active Active Problems Problem Noted Date Diagnosed Date Iron deficiency anemia, unspecified 02/24/2025 Iron deficiency 02/21/2025 Encounters Date Type Department Care Team Description 07/23/2025 11:45 AM CDT Telemedicine [facility] [address] [address] Adelia Murphy, CHAIR POST MACHINE OPERATOR, TECHNICIAN AUTOMATIC Iron deficiency anemia, unspecified iron deficiency anemia type (Primary Dx); Chronic fatigue 07/23/2025 Travel 07/16/2025 1:45 PM CDT Lab [facility] [address] [address] Lab, [facility] Iron deficiency anemia, unspecified iron deficiency anemia type 07/16/2025 Telephone [facility] [address] [address] Joni Agudelo MD 07/16/2025 Travel from Last 3 Months Family History Medical History Relation Name Comments Encephalitis Child 2 14 Diabetes Mother 72 Stroke Mother 72 Relation Name Status Comments Brother 42 Child 1 15 Alive Child 2 14 Alive Child 3 2 Alive Mother 72 Alive Social History Tobacco Use Types Packs/Day Years Used Date Smoking Tobacco: Never Smokeless Tobacco: Never Tobacco Cessation:Counseling Given: Not Answered Alcohol Use Standard Drinks/Week Comments Yes 0 [...] Sign Reading Time Taken Comments Blood Pressure 116/70 04/23/2025 2:44 PM CDT Pulse 73 04/23/2025 2:44 PM CDT Temperature 36.8 C (98.2 F) 04/23/2025 2:44 PM CDT Respiratory Rate 18 04/23/2025 2:44 PM CDT Oxygen Saturation 98% 04/23/2025 2:44 PM CDT Inhaled Oxygen Concentration - - Weight 81.3 kg (179 lb 4.8 oz) 04/23/2025 2:44 P M CDT Height 157.5 cm (5' 2) 04/23/2025 2:44 PM CDT Body Mass Index 32.79 04/23/2025 2:44 PM CDT Plan of Treatment Upcoming Encounters Date Type Department Care Team (Late st Contact Info) Description 10/29/2025 2:30 PM IC ENGINEER Lab [facility] [address] [phone] Lab, Cc [facility] 10/29/2025 2:45 PM IC ENGINEER Office Visit [facility] [address] [phone] Joni Agudelo MD [address] [place] [address] Health Maintenance Due Date Last Done Comments Hepatitis C Virus (HCV) Screening 1988 Hepatitis B Immunization (1 of 3 - 19+ 3-dose series) 2007 Human Papillomavirus (HPV) Immunization (1 - 3-dose SCDM series) 2015 SARS-COV-2 Immunization ( season) 2024 03/18/2021, 02/25/2021 Influenza Immunization (#1) 2025 10/13/2015 Respiratory Syncytial Virus (RSV) Immunization (Adult) (1 - 1-dose 75+ series) 2063 TdaP Immunization Completed 06/17/2022 Meningococcal Immunization (ACWY) Aged Out No longer eligible b ased on patient's age to complete this topic Pneumococcal Immunization Combined Aged Out No longer eligible b ased on patient's age to complete this topic Rotavirus Immunization Aged Out No lo nger eligible based on patient's age to complete this topic Procedures Procedure Name Priority Date/Time Associated Diagnosis Comments CBC WITH AUTO DIFF OH Routine 07/16/2025 2:07 PM CDT CMP (COMPREHENSIVE METABOLIC PANEL) Routine 07/16/2025 2:07 PM CDT Iron deficiency anemia, unspecified iron deficiency anemia type FERRITIN Routine 07/16/2025 2:07 PM CDT Iron deficiency anemia, unspecified iron deficiency anemia type IRON W/ IRON BINDING CAPACITY OH Routine 07/16/2025 2:07 PM CDT Iron deficiency anemia, unspecified iron deficiency anemia type from Last 3 Months Results * (ABNORMAL) IRON W/ IRON BINDING CAPACITY OH (07/16/2025 2:07 PM CDT) IRON 61 50 - 212 ug/dL [facility] UIBC 254 155 - 355 ug/dL [facility] TIBC 315 261 - 478 ug/dl [facility] % Saturation 19(L) 20 - 50 % [facility] 07/16/2025 2:07 PM CDT Narrative [facility] - 07/16/2025 3:02 PM CDT Release to patient->Immediate us Adelia Murphy CHAIR POST MACHINE OPERATOR, TECHNICIAN AUTOMATIC LAB SEND OUTS Final Result [facility] [place] [address], * CBC WITH AUTO DIFF [place] (07/16/2025 2:07 PM CDT) WBC 7.4 4.0 - 10.0 10*3/uL [facility] HGB 13.2 11.2 - 15.7 g/dL [facility]GET TECHNIC[facility] HCT 39.4 34.1 - 44.9 % [facility]CHN[facility] PLT 348 163 - 369 10*3/uL [facility] TE[facility] MPV 9.9 9.4 - 12.4 fL [facility] RBC 4.32 3.93 - 5.22 10*6/uL [facility]UDGET TECHNIC[facility] MCV 91 79 - 95 fL [facility] MCH 30.6 25.6 - 32.2 pg [facility]UDGET TECHNIC[facility] MCHC 33.5 32.2 - 36.5 g/dL [facility]GET TECHNIC[facility] RDW 13.0 11.6 - 14.4 % [facility]GET TECH[facility] Neutrophils % 64.1 36.0 - 66.0 % [facility]GET TECHN[facility] Lymphocytes % 28.4 19.0 - 40.0 % [facility] TECH[facility] Monocytes % 6.2 4.1 - 12.1 % [facility] TE[facility] Eosinophils % 0.5 0.0 - 3.5 % [facility] Basophils % 0.5 0.0 - 1.0 % [facility] TE[facility] Absolute Neutrophils 4.8 1.4 - 6.6 10*3/uL [facility] Absolute Lymphocytes 2.1 0.8 - 4.0 10*3/uL [facility] TE[facility] Absolute Monocytes 0.5 0.2 - 1.2 10*3/uL [facility] Absolute Eosinophils 0.0 0.0 - 0.4 10*3/uL [facility] Absolute Basophils 0.0 0.0 - 0.1 10*3/uL [facility] 07/16/2025 2:07 PM CDT Adelia Murphy APRN, CNP LAB SEND OUTS Final Result [facility] [place] [address], [place] [phone] * FERRITIN (07/16/2025 2:07 PM CDT) Ferritin 77 11 - 307 ng/mL [facility] Blood 07/16/2025 2:07 PM CDT Narrative [facility] - 07/17/2025 2:43 PM CDT Release to patient->Immediate Adelia Murphy APRN, NAVEEN CHEMISTRY ORDERABLES Final Result Performing Organization Address [facility] Co de Phone Number [facility] [place] [address], [place] [phone] * (ABNORMAL) CMP (COMPREHENSIVE METABOLIC PANEL) (07/16/2025 2:07 PM CDT) Glucose 92 70 - 105 mg/dL [facility] Blood Urea Nitrogen 13 7 - 25 mg/dL [facility] Creatinine 0.8 0.6 - 1.2 mg/dL [facility] Sodium 138 136 - 145 mEq/L [facility] Potassium 4.1 3.5 - 5.1 mEq/L [facility] Chloride 101 98 - 107 mEq/L [facility] Bicarbonate 31 21 - 31 mEq/L [facility] Total Bilirubin 0.3 0.3 - 1.0 mg/dL [facility] Alk. Phosphatase 82 34 - 104 U/L [facility] Aspartate Aminotransferase 12(L) 13 - 39 U/L [facility] Alanine Aminotransferase 10 7 - 52 U/L [facility] Total Protein 6.6 6.4 - 8.9 g/dL [facility] Albumin 4.1 3.5 - 5.7 g/dL [facility] Calcium 9.1 8.6 - 10.3 mg/dL [facility]GET TECHN[facility] Anion Gap 10.1 7.0 - 15.0 mEq/L [facility]GET TE[facility] Globulin 2.5 2.0 - 3.5 g/dL [facility]GET TECHNIC[facility] EGFR 97 >60 ml/min/1. 73m2 [facility] TE[facility]IC[facility] Comment: This eGFR is calculated using 2020 CKD-EPI Creatinine equation without race modifier based on the NKF-ASN task force recommendations Equation: uSTR=141*min(SCr/k,1)a*max(SCr/k,1)-1.200*0.9938Age*1.012 (if female), where SCr is serum creatinine, k is 0.7 for females and 0.9 for males, and a is -0.241 for females and -0.302 for males Blood 07/16/2025 2:07 PM CDT Narrative [facility]GET TECHNIC[facility] - 07/16/2025 3:02 PM CDT Release to patient->Immediate IS THE PATIENT REQUIRED TO BE FASTING FOR 8 HOURS?->No Adelia Murphy APRN, TECHNICIAN AUTOMATIC CHEMISTRY ORDERABLES Final Result [facility]GET TECHNIC[facility] [place] [address], from Last 3 Months Insurance [facility] Care Teams Annual Campaign Manager Relationship Specialty Start Date End Date Cavazos Shukri [address] [place] [address] PCP - General Family Medicine 02/11/25 Joni Agudelo MD [address] [place] [address] Consulting Physician Oncology 02/11/25
--- OUTSIDE RECORDS SUMMARY | 2025-07-25 14:35 | XMS_ITS | Clinical Summary ---
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 Gender Identity Not on file Sexual Orientation [...] ral Livnic Carrasco Complications:Post He morrhage Delivery Location:[facility] 2009 Term 39w 0d 4.536 kg (10 lb) M CS-LT ranv Spinal Leanne Carrasco Delivery Location:[place] 2010 SAB 8w0 d Last Filed Vital [...] 3:26 PM CDT Height 157.5 cm (5' 2) 03/27/2024 3:26 PM CDT Body Mass Index 31.62 03/27/2024 3:26 PM CDT Plan of Treatment Health Maintenance Due Date Last Done Comments Cervical Cancer Screening 1988 Hepatitis C Screening 1988 DTaP/Tdap/Td Vaccine (1 - Tdap) 1999 Varicella Vaccines (1 of 2 - 13+ 2-dose series) 2001 Hepatitis B Screening 2006 Regular Well Visit/Exam 18-64 2006 HPV Vaccines (1 - 3-dose SCDM series) 2015 Covid-19 Vaccine ( season) 2024 03/27/2021, 03/18/2021, 02/25/2021 Depression Screening 03/27/2025 03/27/2024, 03/27/2024, 02/14/2024, Additional history exists Influenza Vaccine (#1) 2025 10/13/2015 Pneumococcal vaccine <65 Aged Out No longer eligible based on patient's age to complete this topic Insurance [employer] [facility] Address: [facility] [id number] ANTHEM ACCESS Advance Directives For more information, please contact: [phone] * Full Code (Latest Code Status on File) Date Activated Date Inactivated Comments 01/06/2022 12:31 AM 01/07/2022 10:21 PM Care Teams Client Experience Consultant Relationship Specialty Start Date End Date Madonna Trent MD PCP - General Family Practice 01/24/23
--- OUTSIDE RECORDS SUMMARY | 2025-07-25 14:35 | XMS_ITS | Clinical Summary ---
Author Organization [facility] Address [address] [place] [address] Care Team Providers Care Air Conditioner Installer Helper Name Role Phone Unavailable Primary Care Provider Unavailabl e Source Comments [facility],non-owned Affiliates and Associated Physician Practices is amultiple site organization consisting of ambulatory clinics and hospital sitesin [place], [place], [place] and [place]. This disclosure is being madepursuant to the Care Everywhere program and may not contain all information available regarding this patient. 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 Gender Identity Not on file Sexual Orientation [...] 7:51 PM CDT Height 157.5 cm (5' 2) 07/18/2024 7:51 PM CDT Body Mass Index 32.01 07/18/2024 7:51 PM CDT Plan of Treatment Health Maintenance Due Date Last Done Comments HIV SCREENING 2003 HEPATITIS C SCREENING 09/11/2006 DTAP/TDAP/TD VACCINES (1 - Tdap) 2007 HEPATITIS B VACCINE (1 of 3 - 19+ 3-dose series) 2007 PAP SMEAR 2009 HPV VACCINE (1 - 3-dose SCDM series) 2015 COVID-19 VACCINE (3 - 2023-2 5 season) 2024 03/18/2021, 02/25/2021 DEPRESSION SCREENING 11/27/2024 INFLUENZA VACCINE (#1) 2025 10/13/2015 ZOSTER VACCINE (1 of 2) [...] this topic Medical Devices Implanted Type Area Reclamation Kettle Tender Device Identifier Shelf Expiration Date Model / Serial / Lot Screw 2.7mm 12mm T8 Cortx Evos Mini Ss Implanted:Qty: 3 on 09/10/2021 by Crys Angela MD at [facility] Left: Arm [employer] [id number] / / Screw 2.7mm 4.5mm 13mm T8 Drvr 2 End Drl Implanted:Qty: 2 on 09/10/2021 by Crys Angela MD at [facility] Left: Arm [employer] [id number] / / Screw 2.7mm 4.5mm 14mm T7 Slfret Scrdrvr Implanted:Qty: 1 on 09/10/2021 by Crys Angela MD at [facility] Left: Arm [employer] [id number] / / Screw 3.5mm 12mm Slf-Tap Cortx Evos Strl Implanted:Qty: 3 on 09/10/2021 by Crys Angela MD at [facility] Left: Arm [employer] [id number] / / Screw 3.5mm 13mm Slf-Tap Cortx Evos Strl Implanted:Qty: 1 on 09/10/2021 by Crys Angela MD at [facility] Left: Arm [employer] [id number] / / Screw 3.5mm 14mm Slf-Tap Cortx Evos Strl Implanted:Qty: 1 on 09/10/2021 by Crys Angela MD at [facility] Left: Arm [employer] [id number] / / Screw 3.5mm 17mm Slf-Tap Cortx Evos Strl Implanted:Qty: 1 on 09/10/2021 by Crys Angela MD at [facility] Left: Arm [employer] [id number] / / 2.7mm Compression Plate Implanted:Qty: 1 on 09/10/2021 by Crys Angela MD at [facility] Left: Arm [employer] [id number] / / Insurance ANTH ANTH SELF PAY NO INSURANCE Member Subscriber Plan / Payer (Ef fective for All Dates) Name:Schuster Suzy Member ID:Not on file Relation to Subscriber:Not on file Name:SCHUSTERSUZY Subscriber ID:Not on file (Home) Address: [address] [place] [address] Payer ID:Not on file Group ID:Not on file Type:Self Pay Address: [place], [place] TP [employer]Y LIABILITY Republican Liability ANTHEM Advance Directives * Full Code (Latest Code Status on File) Date Activated Date Inactivated Comments 09/11/2021 5:37 PM 09/13/2021 12:33 PM
--- OUTSIDE RECORDS SUMMARY | 2025-07-25 14:35 | XMS_ITS | Clinical Summary ---
Author Organization [facility] Address [facility] [place] [address] Care Team Providers Care Lime Boiler Name Role Phone Unavailable Primary Care Provider [...] of 3 - 19+ 3-dose series) 2007 HPV Vaccines (1 - 3-dose SCD M series) 2015 Cervical Cancer Screening Pa p with HPV Testing (Age 30 to 64) Every 5 Years 2018 Cervical Cancer Screening with HPV 2018 COVID-19 Vaccine (2023-2 5 season) 2024 Meningococcal B Vaccine Aged Out No l [...]
[2025-07-25 16:16] LABS: HIV 1/2 Ab P24 Ag Result Negative (Negative)
[2025-07-25 16:24] LABS: Syphilis IgG/IgM Antibody Non-Reactive (Nonreactive)
[2025-07-25 16:25] LABS: Hepatitis B Surface Antigen Negative (Negative)
[2025-07-25 16:31] LABS: HAV RESULT Negative (Negative); Hepatitis B Core IgM Result Negative (Negative)
[2025-07-26 07:09] LABS: HSV 1 IgG, Type Spec Non Reactive (Non Reactive); HSV 2 IgG, Type Spec Non Reactive (Non Reactive)
== END 2025-07-25 14:33 | disposition home or self-care (01) ==
PROVIDERS: PCP Emergency Medicine; Referring Provider Internal Medicine Gastroenterology; Visit Provider Obstetrics & Gynecology
DX: Z11.3 Encounter for screening for infections with a predominantly sexual mode of transmission (principal)
CPT/HCPCS: 36415; 80074; 86593; 86695; 86696; 86703; 87491; 87591; 87661; G0432

== ENCOUNTER 2025-07-29 15:24 | Outpatient (CLI) | payer BC, SELFPAY ==
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
--- OUTSIDE RECORDS SUMMARY | 2025-05-14 12:38 | XMS_ITS | Continuity of Care Document ---
Author Organization [facility] Address [address] [place] [address] [place] [address] Phone Care Team Providers Care Supervisor Cartography Name Role Phone Shukri Cavazos MD Unavailable Unavailable Allergies, Adverse Reactions, Alerts Substance Reaction Status Criticality NITROFURANTOIN MACROCRYSTALLINE Hives / Skin Rash Acti ve No Information nitrofurantoin Hives / Skin Rash Active No Infor mation Medications Medication Instructions Dosage Effective Dates (start - stop) Status Comments Zoloft 100 mg tablet take 1 tablet by or al route every day 100 MG - Active Wellbutrin XL 150 mg 24 hr tablet, extended release take 1 tablet by oral route every morning 150 MG - Active Procedures Procedure Date OFFICE/OUTPATIENT VISIT, EST OFFICE/OUTPATIENT VISIT, EST OFFICE/OUTPATIENT VISIT, EST OFFICE/OUTPATIENT VISIT, NEW PREV VISIT, NEW, AGE 18-39 Advance Directives Directive Yes / No Effective Date File Name No Information Encounters Encounter Description Practice Location Reason(s) For Visit Diagnoses Date Provider Providers Copied on Encounter OFFICE/OUTPA TIENT VISIT, EST [facility], [place], [facility], [address] [place], [address], [place] tel:[phone] [facility] [place] iron (chief complaint) anxiety1 (chief complaint) thyroid1 (chief complaint) Generalized Anxiety DisorderIron deficiencyDisorder of thyroid, unspecifiedGERD w/o esophagitis 5 Dirk Watt. [address] [place], [address] , [place]. tel:[phone] OFFICE/OUTPA TIENT VISIT, [facility], [place], [address], [place], [address], [place] tel:[phone] [facility], [place] UTI1 (chief complaint) rectal1 (chief complaint) iron (chief complaint) dyslexia (chief complaint) anxiety1 (chief complaint) Iron deficiencyGeneraliz ed Anxiety DisorderAcute cystitis without hematuriaProctitisD yslexia 5 Dirk Watt. [address], [place], [place], [address] , [place]. tel:[phone] OFFICE/OUTPA TIENT VISIT, [facility], [place], [address] [place], [address], [place] tel:[phone] [facility] [place] thyroid (chief complaint) HLP (chief complaint) iron (chief complaint) anxiety1 (chief complaint) Restless legs syndromeIron deficiencyGeneraliz ed Anxiety DisorderMixed hyperlipidemiaDisor esa of thyroid, unspecified 5 Dirk Watt. [address], [place], [place], [address] , [place]. tel:[phone] OFFICE/OUTPA TIENT VISIT, [facility], [address], [place], [address], [place] tel:[phone] [facility], [place] physical (chief complaint) Encounter for general adult medical exam w abnormal findingsFatigueAbno rmal weight gainGeneralized Anxiety DisorderRestless legs syndrome 5 Dirk Watt. [address], [place], [place], [address] , [place]. [phone] Family History Family Member Type Diagnosis Age At Onset Mother Problem DM, HTN thyroid disease, dep ression Mother Problem CVA 60s Problem Family history o f partial hysterectomy due to endometriosis 2022 Father Problem unknown Brother Problem Alive and well Payers Payer name Insurance type Covered constitution party ID Authoriza tion(s) BCBS CI [id number] Social History Type Description Quantity Date Captured Comments Alcohol Use Details Caffeine Use Details Unknown Tobacco Use Status Current non-smoker Smoking Status Never smoker Sex Female Vital Signs Date / Time: Height Weight BMI Pulse Rate Blood Pressure Temperature Respiratory Rate Body Surface Area Head Circumference BMI percentile Pulse Ox Inhaled Ox 5:42 PM 62.00 in 175.00 lbs 32.0 1 kg/m eter (2) 79 /min 124/72 mm[Hg] 98.0 F 16 /min Chief Complaint And Reason For Visit From encounter dated '05/14/2025 17:38'. iron (chief complaint). Description: Pt has history of iron deficiency. pt denies any bleeding, Pt received iron infusion and her post infusion Iron was 73, ferritin 107. with iron saturation of 23. Pt had benign EGD and colonoscopy. However ,she does have positive H pylor and she was treated with PPI and amoxicillin and clarithromycin. She denies any abd pain Pt denies any sugar GERD. anxiety1 (chief complaint). Description: Pt has chronic anxiety and depression Pt takes prozac and wellbutrin but is not working anymore Pt feels very depressed and anxious and she has no motivation to even get out of bed in the morning Pt has been having crying spells Pt denies any suicidal or homicidal thought thyroid1 (chief complaint). Description: Pt has mildly high thyroglobulin Pt denies any dysphagia or neck pain Plan Of Treatment Date Type Action Status Referral Ordered: Hematology (related to Iron deficiency) ordered Referral Ordered: COLONOSCOPY AND BIOPSY ordered Referral Ordered: Referrals: Hematology. Evaluate and treat ordered Appointment Nikki Schuster BOOKED History Of Present Illness Encounter Date Complaint History Of Prese nt Illness thyroid1 Pt has mildly hi gh thyroglobulin Pt denies any dysphagia or neck pain anxiety1 Pt has chronic a nxiety and depression Pt takes prozac and wellbutrin but is not working anymore Pt feels very depressed and anxious and she has no motivation to even get out of bed in the morning Pt has been having crying spells Pt denies any suicidal or homicidal thought iron Pt has history o f iron deficiency. pt denies any bleeding, Pt received iron infusion and her post infusion Iron was 73, ferritin 107. with iron saturation of 23. Pt had benign EGD and colonoscopy. However ,she does have positive H pylor and she was treated with PPI and amoxicillin and clarithromycin. She denies any abd pain Pt denies any sugar GERD. UTI1 Pt recently went to ER for UTI and she was treated with cefdinir and her UTI symptoms resolved. 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 Pt is studying [employer] now at [employer] and she needs letter for special IEP [...] No Information Assessments Type Assessment Date assessment Generalized Anxiety Disorder Apr assessment Iron deficiency assessment Disorder of thyroid, unspecified assessment GERD w/o esophagitis Mental Status Date Cognitive Assessment Orientation - [place] ed to time, place, person, situation.
--- OUTSIDE RECORDS SUMMARY | 2025-05-14 12:38 | XMS_ITS | Continuity of Care Document ---
Author Organization [facility] Address [address] [address] [place] [address] Phone Care Team Providers Care Acid Operator Name Role Phone Shukri Cavazos MD [...] Copied on Encounter OFFICE/OUTPA TIENT VISIT, EST [facility], [place], [facility], [address] [place], [address], [place] tel:[phone] [facility], [place] iron (chief complaint) anxiety1 (chief complaint) thyroid1 (chief complaint) Generalized Anxiety DisorderIron deficiencyDisorder of thyroid, unspecifiedGERD w/o esophagitis 5 Dirk Watt. [address] [place], [place], [address] , [place]. tel:[phone] OFFICE/OUTPA TIENT VISIT, [facility], [address], [place], [address], [place] tel:[phone] [facility], [place] UTI1 (chief complaint) rectal1 (chief complaint) iron (chief complaint) dyslexia (chief complaint) anxiety1 (chief complaint) Iron deficiencyGeneraliz ed Anxiety DisorderAcute cystitis without hematuriaProctitisD yslexia 5 Dirk Watt. [address], [place], [place], [address] , [place]. tel:[phone] OFFICE/OUTPA TIENT VISIT, [facility], [address] [place], [address], [place] tel:[phone] [facility], [place] thyroid (chief complaint) HLP (chief complaint) iron (chief complaint) anxiety1 (chief complaint) Restless legs syndromeIron deficiencyGeneraliz ed Anxiety DisorderMixed hyperlipidemiaDisor esa of thyroid, unspecified 5 Dirk Watt. [address], [place], [place], [address] , [place]. tel:[phone] OFFICE/OUTPA TIENT VISIT, [facility], [address], [place], [address], [place] tel:[phone] [facility], [place] physical (chief complaint) Encounter for general adult medical exam w abnormal findingsFatigueAbno rmal weight gainGeneralized Anxiety DisorderRestless legs syndrome 5 Dirk Watt. [address], [place], [place], [address] , [place]. [phone] Family History Family Member Type Diagnosis Age At Onset Mother Problem DM, HTN thyroid disease, dep ression Mother Problem CVA 60s Problem Family history o f partial hysterectomy due to endometriosis 2022 Father Problem unknown Brother Problem Alive and well Payers Payer name Insurance type Covered constitution party ID Authoriza tion(s) BCBS CI [id number] Social History Type Description Quantity Date Captured [...] resolved. 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 Pt is studying [employer] now at [employer] and she needs letter for special IEP [...] Mental Status Date Cognitive Assessment Orientation - [place] ed to time, place, person, situation.
--- OUTSIDE RECORDS SUMMARY | 2025-05-14 12:38 | XMS_ITS | Continuity of Care Document ---
Author Organization [facility] Address [address] [place] [address] [place] [address] Phone Care Team Providers Care Floor Layer Apprentice Name Role Phone Shukri Cavazos MD Unavailable [...] Copied on Encounter OFFICE/OUTPA TIENT VISIT, EST [facility], [address], [place], [address], [place] tel:[phone] [facility] iron (chief complaint) anxiety1 (chief complaint) thyroid1 (chief complaint) Generalized Anxiety DisorderIron deficiencyDisorder of thyroid, unspecifiedGERD w/o esophagitis 5 Dirk Watt. [address], [place], [address] , [place]. tel:[phone] OFFICE/OUTPA TIENT VISIT, [facility], [address], [address], [place] tel:[phone] [facility] UTI1 (chief complaint) rectal1 (chief complaint) iron (chief complaint) dyslexia (chief complaint) anxiety1 (chief complaint) Iron deficiencyGeneraliz ed Anxiety DisorderAcute cystitis without hematuriaProctitisD yslexia 5 Dirk Watt. [address], [place], [place], [address] , [place]. tel:[phone] OFFICE/OUTPA TIENT VISIT, [facility], [address] [place], [address], [place] tel:[phone] [facility] thyroid (chief complaint) HLP (chief complaint) iron (chief complaint) anxiety1 (chief complaint) Restless legs syndromeIron deficiencyGeneraliz ed Anxiety DisorderMixed hyperlipidemiaDisor esa of thyroid, unspecified 5 Dirk Watt. [address], [place], [place], [address] , [place]. tel:[phone] OFFICE/OUTPA TIENT VISIT, [facility], [address], [place], [address], [place] tel:[phone] [facility] physical (chief complaint) Encounter for general adult medical exam w abnormal findingsFatigueAbno rmal weight gainGeneralized Anxiety DisorderRestless legs syndrome 5 Dirk Watt. [address], [place], [place], [address] , [place]. [phone] Family History Family Member Type Diagnosis Age At Onset Mother Problem DM, HTN thyroid disease, dep ression Mother Problem CVA 60s Problem Family history o f partial hysterectomy due to endometriosis 2022 Father Problem unknown Brother Problem Alive and well Payers Payer name Insurance type Covered green party ID Authoriza tion(s) BCBS CI [id number] Social History Type Description Quantity Date Captured [...] resolved. rectal1 Pt had CT done w [facility] showed minimal fat stranding around the rectum with wall thickening and possible proctitis .Pt denies any GI issue Pt has jami for EGD and colonoscopy soon iron Pt has iron defi ciency Pt saw sales counselor and received iron infusion recently Pt feels less fatigue dyslexia Pt has dyslexia with chronic learning disorder and she has difficulty comprehend reading. 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
--- OUTSIDE RECORDS SUMMARY | 2025-07-29 15:26 | XMS_ITS | Clinical Summary ---
Author Organization [facility] Address [address] [place] [address] Care Team Providers Care Mechanical Service Specialist Name Role Phone Unavailable Primary Care Provider Unavailabl e Source Comments [facility],non-owned Affiliates and Associated Physician Practices is amultiple site organization consisting of ambulatory clinics and hospital sitesin [place], [place], [place] and [place]. This disclosure is being madepursuant to the Care Everywhere program and may not contain all information available regarding this patient. 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 Gender Identity Not on file [...] VACCINE (1 - 3-dose SCDM series) 2015 DEPRESSION SCREENING 11/27/2024 COVID-19 VACCINE (3 - 2024-2 6 season) 2025 03/18/2021, 02/25/2021 INFLUENZA VACCINE (#1) 2025 10/13/2015 ZOSTER VACCINE [...] this topic Medical Devices Implanted Type Area Exhaust Emissions Inspector Device Identifier Shelf Expiration Date Model / Serial / Lot Screw 2.7mm 12mm T8 Cortx Evos Mini Ss Implanted:Qty: 3 on 09/10/2021 by Crys Angela MD at [facility] Left: Arm [employer] [id number] / / Screw 2.7mm 4.5mm 13mm T8 Drvr 2 End Drl Implanted:Qty: 2 on 09/10/2021 by Crys Angela MD at [facility] Left: Arm [employer] [id number] / / Screw 2.7mm 4.5mm 14mm T7 Slfret Scrdrvr Implanted:Qty: 1 on 09/10/2021 by Crys Angela MD at [facility] Left: Arm [employer] [id number] / / Screw 3.5mm 12mm Slf-Tap Cortx Evos Strl Implanted:Qty: 3 on 09/10/2021 by Crys Angela MD at [facility] Left: Arm [employer] [id number] / / Screw 3.5mm 13mm Slf-Tap Cortx Evos Strl Implanted:Qty: 1 on 09/10/2021 by Crys Angela MD at [facility] Left: Arm [employer] [id number] / / Screw 3.5mm 14mm Slf-Tap Cortx Evos Strl Implanted:Qty: 1 on 09/10/2021 by Crys Angela MD at [facility] Left: Arm [employer] [id number] / / Screw 3.5mm 17mm Slf-Tap Cortx Evos Strl Implanted:Qty: 1 on 09/10/2021 by Crys Angela MD at [facility] Left: Arm [employer] [id number] / / 2.7mm Compression Plate Implanted:Qty: 1 on 09/10/2021 by Crys Angela MD at [facility] Left: Arm [employer] [id number] / / Insurance ANTH ANTH SELF PAY NO INSURANCE Member Subscriber Plan / Payer (Ef fective for All Dates) Name:Schuster Suzy Member ID:Not on file Relation to Subscriber:Not on file Name:SCHUSTERSUZY Subscriber ID:Not on file (Home) Address: [address] [place] [address] Payer ID:Not on file Group ID:Not on file Type:Self Pay Address: [place], [place] TP [employer] ANTHEM Advance Directives * Full Code (Latest Code Status on File) Date Activated Date Inactivated Comments 09/11/2021 5:37 PM 09/13/2021 12:33 PM
--- OUTSIDE RECORDS SUMMARY | 2025-07-29 15:26 | XMS_ITS | Clinical Summary ---
Author Organization [facility] Address [facility] [place] [address] Care Team Providers Care Changer Fixer Name Role Phone Unavailable Primary Care Provider [...]
--- OUTSIDE RECORDS SUMMARY | 2025-07-29 15:26 | XMS_ITS | Clinical Summary ---
Author Organization [facility] Address [address] [place] [address] Care Team Providers Care Oil Well Drilling Manager Name Role Phone Madonna Trent MD [...] without psychotic features without prior episode ([facility]) TAKE 1 TABLET BY MOUTH EVERY DAY [...] on file Legal Sex Female 10:53 AM ASSISTANT MEDIA PLANNER Gender Identity Not on file Sexual Orientation [...] ral Livnic Carrasco Complications:Post He morrhage Delivery Location:[facility] ospital 2009 Term 39w 0d 4.536 kg (10 lb) M CS-LT ranv Spinal Leanne Carrasco Delivery Location:[place] 2010 SAB 8w0 d Last Filed Vital [...] Vaccines (1 - 3-dose SCDM series) 2015 Depression Screening 03/27/2025 03/27/2024, 03/27/2024, 02/14/2024, Additional history exists Covid-19 Vaccine (2024- season) 2025 03/27/2021, 03/18/2021, 02/25/2021 Influenza Vaccine (#1) 2025 10/13/2015 Pneumococcal vaccine <65 Aged Out No longer eligible based on patient's age to complete this topic Insurance [employer] [facility] Member Subscriber Plan / Payer (Ef fective 2021-Present) Name:Nikki Schuster Relation to Subscriber:Self Name:Nikki Schuster Payer ID:[id number] (NAIC) Type:[facility] Address: [facility] [id number] ANTHEM ACCESS Advance Directives For more information, please contact: [phone] * Full Code (Latest Code Status on File) Date Activated Date Inactivated Comments 01/06/2022 12:31 AM 01/07/2022 10:21 PM Care Teams Oil Well Drilling Manager Relationship Specialty Start Date End Date Madonna Trent MD PCP - General Family Practice 01/24/23
--- OUTSIDE RECORDS SUMMARY | 2025-07-29 15:26 | XMS_ITS | Clinical Summary ---
Author Organization [facility] Address [address], [facility] 1 [place] [address] Phone Care Team Providers Care Bleach Boiler Packer Name Role Phone Shukri Cavazos Primary Care Provider [phone] Joni Agudelo MD Unavailable Allergies Active Allergy [...] AM CDT Telemedicine [facility] [address] [address] Adelia Murphy, DIPPER AND DRIER, INDUSTRIAL TECHNOLOGY TEACHER Iron deficiency anemia, unspecified iron deficiency anemia type (Primary Dx); Chronic fatigue 07/23/2025 Travel 07/16/2025 1:45 PM CDT Lab [facility] [address] [address] Lab, [facility] Iron deficiency anemia, unspecified iron deficiency anemia type 07/16/2025 Telephone [facility] [address] [address] Joni Agudelo MD 07/16/2025 Travel [...] st Contact Info) Description 10/29/2025 2:30 PM COMBINATION BUILDING INSPECTOR Lab [facility] [address] [phone] Lab, Cc [facility] 10/29/2025 2:45 PM COMBINATION BUILDING INSPECTOR Office Visit [facility] [address] [phone] Joni Agudelo MD [address] [place] [address] Health Maintenance Due Date Last Done Comments Hepatitis C Virus (HCV) Screening 1988 Hepatitis B Immunization (1 of 3 - 19+ 3-dose series) 2007 Human Papillomavirus (HPV) Immunization (1 - 3-dose SCDM series) 2015 Influenza Immunization (#1) 2025 10/13/2015 SARS-COV-2 Immunization (3 - season) 2025 03/18/2021, 02/25/2021 Respiratory Syncytial Virus (RSV) Immunization [...] IRON 61 50 - 212 ug/dL [facility] BILINGUAL RESEARCH INTERVIEWER [facility] UIBC 254 155 - 355 ug/dL CANCER BILINGUAL RESEARCH INTERVIEWER [facility] TIBC 315 261 - 478 ug/dl CAN[facility]ER BILINGUAL RESEARCH INTERVIEWER [facility] % Saturation 19(L) 20 - 50 % CAN[facility]ER BILINGUAL RESEARCH INTERVIEWER [facility] 07/16/2025 2:07 PM CDT Narrative CANCER BILINGUAL RESEARCH INTERVIEWER [facility] - 07/16/2025 3:02 PM CDT Release to patient->Immediate us Adelia Murphy DIPPER AND DRIER, INDUSTRIAL TECHNOLOGY TEACHER LAB SEND OUTS Final Result CANCER BILINGUAL RESEARCH INTERVIEWER [facility] [place] [address], * CBC WITH AUTO DIFF [place] (07/16/2025 2:07 PM CDT) WBC 7.4 4.0 - 10.0 10*3/uL CANCER BILINGUAL RESEARCH INTERVIEWER [facility] HGB 13.2 11.2 - 15.7 g/dL CAN[facility]ER BILINGUAL RESEARCH INTERVIEWER [facility] HCT 39.4 34.1 - 44.9 % CANCER BILINGUAL RESEARCH INTERVIEWER [facility] PLT 348 163 - 369 10*3/uL CANCER BILINGUAL RESEARCH INTERVIEWER [facility] MPV 9.9 9.4 - 12.4 fL CAN[facility]ER BILINGUAL RESEARCH INTERVIEWER [facility] RBC 4.32 3.93 - 5.22 10*6/uL CANCER BILINGUAL RESEARCH INTERVIEWER [facility] MCV 91 79 - 95 fL [facility] MCH 30.6 25.6 - 32.2 pg CANCER BILINGUAL RESEARCH INTERVIEWER [facility] MCHC 33.5 32.2 - 36.5 g/dL CANCER BILINGUAL RESEARCH INTERVIEWER [facility] RDW 13.0 11.6 - 14.4 % CANCER BILINGUAL RESEARCH INTERVIEWER [facility] Neutrophils % 64.1 36.0 - 66.0 % CANCER BILINGUAL RESEARCH INTERVIEWER [facility] Lymphocytes % 28.4 19.0 - 40.0 % CANCER BILINGUAL RESEARCH INTERVIEWER [facility] Monocytes % 6.2 4.1 - 12.1 % CAN[facility]ER BILINGUAL RESEARCH INTERVIEWER [facility] Eosinophils % 0.5 0.0 - 3.5 % CANCER BILINGUAL RESEARCH INTERVIEWER [facility] Basophils % 0.5 0.0 - 1.0 % CANCER BILINGUAL RESEARCH INTERVIEWER [facility] Absolute Neutrophils 4.8 1.4 - 6.6 10*3/uL CAN[facility]ER BILINGUAL RESEARCH INTERVIEWER [facility] Absolute Lymphocytes 2.1 0.8 - 4.0 10*3/uL CANCER BILINGUAL RESEARCH INTERVIEWER [facility] Absolute Monocytes 0.5 0.2 - 1.2 10*3/uL [facility]ER BILINGUAL RESEARCH INTERVIEWER [facility] Absolute Eosinophils 0.0 0.0 - 0.4 10*3/uL CANCER BILINGUAL RESEARCH INTERVIEWER [facility] Absolute Basophils 0.0 0.0 - 0.1 10*3/uL CANCER BILINGUAL RESEARCH INTERVIEWER [facility] 07/16/2025 2:07 PM CDT Adelia Murphy APRN, CNP LAB SEND OUTS Final Result [facility] [place] [address], [place] [phone] * FERRITIN (07/16/2025 2:07 PM CDT) Ferritin 77 11 - 307 ng/mL [facility] Blood 07/16/2025 2:07 PM CDT Narrative [facility] - 07/17/2025 2:43 PM CDT Release to patient->Immediate Adelia Murphy APRN, NAVEEN CHEMISTRY ORDERABLES Final Result Performing Organization Address [facility] Co de Phone Number [facility] [place] [address], [place] [phone] * (ABNORMAL) CMP (COMPREHENSIVE METABOLIC PANEL) (07/16/2025 2:07 PM CDT) Glucose 92 70 - 105 mg/dL [facility] Blood Urea Nitrogen 13 7 - 25 mg/dL [facility] Creatinine 0.8 0.6 - 1.2 mg/dL [facility] Sodium 138 136 - 145 mEq/L [facility] Potassium 4.1 3.5 - 5.1 mEq/L [facility] Chloride 101 98 - 107 mEq/L [facility] Bicarbonate 31 21 - 31 mEq/L [facility] Total Bilirubin 0.3 0.3 - 1.0 mg/dL [facility] Alk. Phosphatase 82 34 - 104 U/L [facility] Aspartate Aminotransferase 12(L) 13 - 39 U/L [facility] Alanine Aminotransferase 10 7 - 52 U/L [facility] Total Protein 6.6 6.4 - 8.9 g/dL [facility] Albumin 4.1 3.5 - 5.7 g/dL CANCER BILINGUAL RESEARCH INTERVIEWER [facility] Calcium 9.1 8.6 - 10.3 mg/dL CANCER BILINGUAL RESEARCH INTERVIEWER [facility] Anion Gap 10.1 7.0 - 15.0 mEq/L CANCER BILINGUAL RESEARCH INTERVIEWER [facility] Globulin 2.5 2.0 - 3.5 g/dL CANCER BILINGUAL RESEARCH INTERVIEWER [facility] EGFR 97 >60 ml/min/1. 73m2 CANCER BILINGUAL RESEARCH INTERVIEWER [facility] Comment: This eGFR is calculated using 2020 CKD-EPI Creatinine equation without race modifier based on the NKF-ASN task force recommendations Equation: uORC=569*min(SCr/k,1)a*max(SCr/k,1)-1.200*0.9938Age*1.012 (if female), where SCr is serum creatinine, k is 0.7 for females and 0.9 for males, and a is -0.241 for females and -0.302 for males Blood 07/16/2025 2:07 PM CDT Narrative CANCER BILINGUAL RESEARCH INTERVIEWER [facility] - 07/16/2025 3:02 PM CDT Release to patient->Immediate IS THE PATIENT REQUIRED TO BE FASTING FOR 8 HOURS?->No Adelia Murphy APRN, INDUSTRIAL TECHNOLOGY TEACHER CHEMISTRY ORDERABLES Final Result CANCER BILINGUAL RESEARCH INTERVIEWER [facility] [place] [address], from Last [address] [facility] Care Teams Bleach Boiler Packer Relationship Specialty Start Date End Date Cavazos Shukri [address] [place] [address] PCP - General Family Medicine 02/11/25 Joni Agudelo MD [address] [place] [address] Consulting Physician Oncology 02/11/25
== END 2025-07-29 15:25 | disposition home or self-care (01) ==
LOC: ANHLAB 15:24
PROVIDERS: PCP Emergency Medicine; Visit Provider Internal Medicine Gastroenterology
DX: K29.70 Gastritis, unspecified, without bleeding (principal); B96.81 Helicobacter pylori [H. pylori] as the cause of diseases classified elsewhere
CPT/HCPCS: 87338

== ENCOUNTER 2025-10-09 17:37 | Emergency (ER) | payer BC, SELFPAY ==
--- OUTSIDE RECORDS SUMMARY | 2025-10-09 17:40 | XMS_ITS | Patient Health Record ---
Author Organization [facility] Address [address] [place] [address] Care Team Providers Care Licensed Psychologist Director Name Role Phone Kayley Olson Primary Care Provider Reason For Referral No Information Medications Medication SIG (Take, Route, Fr equency, Duration) Notes Start Date End Date Status Vistaril 25 MG 1 capsule as needed Orally three times daily; Duration: 14 days 02/13/2017 A ctive LaMICtal 150 MG 1 tablet Orally once daily; Duration: 30 days Active SEROquel 100 MG 1 tablet at bedtime Orally Once a day; Duration: 30 days Active Problems Problem Type SNOMED Code ICD Code Onset Dates Problem Status W/U Status Risk Notes Problem Mood disorder (76425961) Mood disorder (F39) Active confirmed Problem Attention deficit hyperactivity disorder, 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
--- OUTSIDE RECORDS SUMMARY | 2025-10-09 17:40 | XMS_ITS | Clinical Summary ---
Author Organization [facility] Address [address], [facility] 1 [place] [address] Phone Care Team Providers Care Information Clerk Name Role Phone Shukri Cavazos Primary Care [...] AM CDT Telemedicine [facility] [address] [address] Adelia Murphy, ACQUISITION ANALYST, RETAIL ACCOUNT MANAGER Iron deficiency anemia, unspecified iron deficiency anemia type (Primary Dx); Chronic fatigue 07/23/2025 Travel 07/16/2025 1:45 PM CDT Lab [facility] [address] [address] [facility] Iron deficiency anemia, unspecified iron deficiency anemia type 07/16/2025 Telephone [facility] [address] [address] Joni Agudelo MD 07/16/2025 Travel [...] st Contact Info) Description 10/29/2025 2:30 PM COAT MAKER Lab [facility] [address] [phone] Lab, Cc [facility] 10/29/2025 2:45 PM COAT MAKER Office Visit [facility] [address] [phone] Joni Agudelo MD [address] [place] [address] Health Maintenance Due Date Last Done Comments [...] IRON 61 50 - 212 ug/dL CANCER AURICULAR THERAPIST [facility] UIBC 254 155 - 355 ug/dL [facility] AURICULAR THERAPIST [facility] TIBC 315 261 - 478 ug/dl [facility] AURICULAR THERAPIST [facility] % Saturation 19(L) 20 - 50 % [facility]URICULAR THERAPIST [facility] 07/16/2025 2:07 PM CDT Narrative [facility] AURICULAR THERAPIST [facility] - 07/16/2025 3:02 PM CDT Release to patient->Immediate us Adelia Murphy ACQUISITION ANALYST, RETAIL ACCOUNT MANAGER LAB SEND OUTS Final Result [facility] AURICULAR THERAPIST [facility] [place] [address], * CBC WITH AUTO DIFF [place] (07/16/2025 2:07 PM CDT) WBC 7.4 4.0 - 10.0 10*3/uL [facility] AURICULAR THERAPIST [facility] HGB 13.2 11.2 - 15.7 g/dL CANC[facility] AURICULAR THERAPIST [facility] HCT 39.4 34.1 - 44.9 % CANCER AURICULAR THERAPIST [facility] PLT 348 163 - 369 10*3/uL [facility] AURICULAR THERAPIST [facility] MPV 9.9 9.4 - 12.4 fL CANCER AURICULAR THERAPIST [facility] RBC 4.32 3.93 - 5.22 10*6/uL CANCER AURICULAR THERAPIST [facility] MCV 91 79 - 95 fL [facility] MCH 30.6 25.6 - 32.2 pg [facility] AURICULAR THERAPIST [facility] MCHC 33.5 32.2 - 36.5 g/dL CANCER AURICULAR THERAPIST [facility] RDW 13.0 11.6 - 14.4 % CAN[facility]ER AURICULAR THERAPIST [facility] Neutrophils % 64.1 36.0 - 66.0 % [facility] AURICULAR THERAPIST [facility] Lymphocytes % 28.4 19.0 - 40.0 % CAN[facility] AURICULAR THERAPIST [facility] Monocytes % 6.2 4.1 - 12.1 % [facility] AURICULAR THERAPIST [facility] Eosinophils % 0.5 0.0 - 3.5 % CAN[facility]ER AURICULAR THERAPIST [facility] Basophils % 0.5 0.0 - 1.0 % CAN[facility]ER AURICULAR THERAPIST [facility] Absolute Neutrophils 4.8 1.4 - 6.6 10*3/uL [facility] AURICULAR THERAPIST [facility] Absolute Lymphocytes 2.1 0.8 - 4.0 10*3/uL CAN[facility] AURICULAR THERAPIST [facility] Absolute Monocytes 0.5 0.2 - 1.2 10*3/uL CAN[facility]ER AURICULAR THERAPIST [facility] Absolute Eosinophils 0.0 0.0 - 0.4 10*3/uL [facility]ER AURICULAR THERAPIST [facility] Absolute Basophils 0.0 0.0 - 0.1 10*3/uL [facility] AURICULAR THERAPIST [facility] 07/16/2025 2:07 PM CDT Adelia Murphy APRN, CNP LAB SEND OUTS Final Result [facility] [place] [address], [place] [phone] * FERRITIN (07/16/2025 2:07 PM CDT) Ferritin 77 11 - 307 ng/mL [facility] Blood 07/16/2025 2:07 PM CDT Narrative [facility] - 07/17/2025 2:43 PM CDT Release to patient->Immediate Adelia Murphy APRN, NAVEEN CHEMISTRY ORDERABLES Final Result Performing Organization Address [facility] Co de Phone Number [facility] [place] [address], [place] [phone] * (ABNORMAL) CMP (COMPREHENSIVE METABOLIC PANEL) (07/16/2025 2:07 PM CDT) Glucose 92 70 - 105 mg/dL [facility] Blood Urea Nitrogen 13 7 - 25 mg/dL [facility] Creatinine 0.8 0.6 - 1.2 mg/dL [facility] Sodium 138 136 - 145 mEq/L [facility] Potassium 4.1 3.5 - 5.1 mEq/L [facility] Chloride 101 98 - 107 mEq/L [facility] Bicarbonate 31 21 - 31 mEq/L [facility] Total Bilirubin 0.3 0.3 - 1.0 mg/dL [facility] Alk. Phosphatase 82 34 - 104 U/L [facility] Aspartate Aminotransferase 12(L) 13 - 39 U/L [facility] Alanine Aminotransferase 10 7 - 52 U/L [facility] Total Protein 6.6 6.4 - 8.9 g/dL [facility] Albumin 4.1 3.5 - 5.7 g/dL [facility] AURICULAR THERAPIST [facility] Calcium 9.1 8.6 - 10.3 mg/dL [facility] AURICULAR THERAPIST [facility] Anion Gap 10.1 7.0 - 15.0 mEq/L [facility]URICULAR THERAPIST [facility] Globulin 2.5 2.0 - 3.5 g/dL [facility] AURICULAR THERAPIST [facility] EGFR 97 >60 ml/min/1. 73m2 [facility] AURICULAR THERAPIST [facility] Comment: This eGFR is calculated using 2020 CKD-EPI Creatinine equation without race modifier based on the NKF-ASN task force recommendations Equation: dCED=602*min(SCr/k,1)a*max(SCr/k,1)-1.200*0.9938Age*1.012 (if female), where SCr is serum creatinine, k is 0.7 for females and 0.9 for males, and a is -0.241 for females and -0.302 for males Blood 07/16/2025 2:07 PM CDT Narrative [facility] AURICULAR THERAPIST [facility] - 07/16/2025 3:02 PM CDT Release to patient->Immediate IS THE PATIENT REQUIRED TO BE FASTING FOR 8 HOURS?->No Adelia Murphy APRN, RETAIL ACCOUNT MANAGER CHEMISTRY ORDERABLES Final Result [facility] AURICULAR THERAPIST [facility] [place] [address], from Last 3 Months Insurance [facility] Care Teams Information Clerk Relationship Specialty Start Date End Date Cavazos Shukri [address] [place] [address] PCP - General Family Medicine 02/11/25 Joni Agudelo MD [address] [place] [address] Consulting Physician Oncology 02/11/25
--- OUTSIDE RECORDS SUMMARY | 2025-10-09 17:40 | XMS_ITS | Clinical Summary ---
Author Organization [facility] Address [facility] [place] [address] Care Team Providers Care Internal Medicine Hospitalist Name Role Phone Unavailable Primary Care Provider [...] Cancer Screening with HPV 2018 COVID-19 Vaccine (2024-2 6 season) 2025 Influenza Adult (#1) 2025 Hepatitis A Vaccines Aged Out No long er eligible based [...]
--- OUTSIDE RECORDS SUMMARY | 2025-10-09 17:40 | XMS_ITS | Clinical Summary ---
Author Organization [facility] Address [address] [place] [address] Care Team Providers Care Paralegal Internship Name Role Phone Madonna Trent MD Primary Care Provider Allergies No known active allergies Medications traZODone (DESYREL) 100 mg tabletIndicatio ns:Psychophysio logic insomnia Take 0.5-1 tablets (50-100 mg total) by mouth nightly as needed for sleep 90 tablet 3 05/24/2024 Active escitalopram (LEXAPRO) 20 mg tabletIndicatio ns:PRISCILA (generalized anxiety disorder),Curre nt severe episode of major depressive disorder without psychotic features without prior episode ([facility]) TAKE 1 TABLET BY MOUTH [...] on file Legal Sex Female 10:53 AM DIP TANKER Gender Identity Not on file Sexual Orientation [...] ral Livnic Carrasco Complications:Post He morrhage Delivery Location:[facility] ospital 2009 Term 39w 0d 4.536 kg (10 lb) M CS-LT ranv Spinal Leanne Carrasco Delivery Location:[place] 2010 SAB 8w0 d Last Filed Vital [...] patient's age to complete this topic Insurance [employer] [facility] Member Subscriber Plan / Payer (Ef fective 2021-Present) Name:Nikki Schuster Relation to Subscriber:Self Name:Nikki Schuster Payer ID:[id number] (NAIC) Type:[facility] Address: [facility] [id number] [address] ANTHEM ACCESS Advance Directives For more information, please contact: [phone] * Full Code (Latest Code Status on File) Date Activated Date Inactivated Comments 01/06/2022 12:31 AM 01/07/2022 10:21 PM Care Teams Paralegal Internship Relationship Specialty Start Date End Date Madonna Trent MD PCP - General Family Practice 01/24/23
[2025-10-09 17:57] VITALS: BP 119/79; PULSE 86; RESP 16; TEMP 37; O2SAT 100
--- NOTE | 2025-10-09 18:24 | ED_ITS ---
HPI - URI/Sore Throat General Chief Complaint: Upper Respiratory Infection Stated Complaint: daughter covid+, QIU, body aches Time Seen by Provider: 10/09/25 18:24 Focused HPI: This is a 35 year old female that presents to the ER for cold symptoms. Reports her daughter currently had COVID. Reports she is experiencing headache, congestion, body aches since yesterday. GENERAL: Well-appearing, well-nourished, and in no acute distress. HEAD: Normocephalic, atraumatic. CHEST: Clear to auscultation. ?No respiratory distress. HEART: Regular rate and rhythm.? NEURO: ?Alert and oriented x3. Patient screened in triage and initial orders placed.? ?Additional care and disposition to be based upon?diagnostic testing and treatment. 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 Hx of trichomoniasis 2018 History of chlamydia 2018 No pertinent past medical history Surgical History Surgical History History of gynecologic surgery Robotic assisted supracervical hysterectomy, bilateral salpingectomy, lysis of adhesions, and cystoscopy History of hysteroscopy Hscope - DC and Ablation - 04/10/2023 History of cholecystectomy 01/07/2022 History of orthopedic surgery left arm broken puneet and screws placed 09/10/2021 S/P tubal ligation 06/15/2022 - C- section and tubal S/P repeat low transverse repeat xs 2 07/2010 & 05/2022 Previous section primary C/S- lack of progress - completely dilated and was unable to deliver vaginally after pushing Family History Family History Mother Hypertension Social History Social History Smoking status: Never smoker Alcohol intake: current Alcohol use details: Occasionally (2 drinks monthly) Substance use: never Substance use type: marijuana Other substance usage details: Edibles Last use: 2 weeks Do You Feel Safe in your Home?: Yes Current Housing: Decline to Answer Concerned About Future Housing: Decline to Answer Difficulty Paying Gas/Electric Bills: Decline to Answer Difficulty Paying for Meds: Decline to Answer Currently Unemployed: Decline to Answer Education: Decline to Answer Difficulty w/ Childcare or Family Care: Decline to Answer Living arrangements: with friend(s) Additional living arrangements comments: CHILDREN - single Occupation/Education: occupation Additional occupation/education comments: quality Gender identity (if verbalized by the patient): Female Sexual Orientation (if Verbalized by the Patient): Straight or Heterosexual Spiritual care concerns: No Course Vital Signs Vital signs: Vital Signs Temperature 98.6 F 10/09/25 17:57 Pulse Rate 86 10/09/25 17:57 Respiratory Rate 16 10/09/25 17:57 Blood Pressure 119/79 10/09/25 17:57 Pulse Oximetry 100 10/09/25 17:57 Oxygen Delivery Room Air 10/09/25 17:57 Temperature 98.6 F 10/09/25 17:57 Pulse Rate 86 10/09/25 17:57 Respiratory Rate 16 10/09/25 17:57 Blood Pressure 119/79 10/09/25 17:57 Pulse Oximetry 100 10/09/25 17:57 Oxygen Delivery Room Air 10/09/25 17:57 MDM - URI/Sore Throat MDM Narrative Medical decision making narrative: patient left after medical screening exam and initial workup, and before any further evaluation or management Lab Data Labs: Lab Results 10/09/25 Range/Units 18:28 Influenza A (RT-PCR) Negative (Negative) Influenza B (RT-PCR) Negative (Negative) RSV (RT-PCR) Negative (Negative) SARS-CoV-2 RNA (RT-PCR) Negative (Negative) Discharge Plan Discharge Clinical Impression: Upper respiratory infection Qualifiers: URI type: unspecified URI Qualified Code(s): J06.9 - Acute upper respiratory infection, unspecified Patient Disposition: Elopement After Seen by Prov Patient Language: Japanese Prescriptions: No Action fluoxetine [Prozac] 20 mg capsule 40 mg PO DAILY 90 Days Qty: 180 4RF cephalexin 500 mg capsule 500 mg PO DAILY Qty: 60 0RF Rx Instructions: after intercourse bupropion HCl 150 mg tablet extended release 24 hr 150 mg PO DAILY cefdinir 300 mg capsule 300 mg PO Q12H 10 Days Qty: 20 0RF omeprazole 40 mg capsule,delayed release(DR/EC) 40 mg PO DAILY Qty: 30 1RF Follow-up/Referrals: Shukri Cavazos MD [Primary Care Provider, Family Practice]
[2025-10-09 19:09] LABS: Influenza A QL RT-PCR Negative (Negative); Influenza B QL RT-PCR Negative (Negative); RSV RNA, RT-PCR Negative (Negative); SARS-CoV-2 RNA PCR Negative (Negative)
--- OUTSIDE RECORDS SUMMARY | 2025-10-09 19:47 | XMS_ITS | Clinical Summary ---
Author Organization [facility] Address [address], [facility] [address] [place] [address] Phone Care Team Providers Care Film Splicer Name Role Phone Shukri Cavazos Primary Care Provider [phone] Joni Agudelo MD Unavailable Allergies Active Allergy [...] AM CDT Telemedicine [facility] [address] [phone] Adelia Murphy, BASKET GRADER, BICYCLE DESIGNER Iron deficiency anemia, unspecified iron deficiency anemia type (Primary Dx); Chronic fatigue 07/23/2025 Travel 07/16/2025 1:45 PM CDT Lab [facility] [address] [address] [facility] Iron deficiency anemia, unspecified iron deficiency anemia type 07/16/2025 Telephone [facility] [address] [phone] Joni Agudelo MD 07/16/2025 Travel [...] st Contact Info) Description 10/29/2025 2:30 PM RELIEF PILOT Lab [facility] [address] [phone] Lab, Cc [facility] 10/29/2025 2:45 PM RELIEF PILOT Office Visit [facility] [address] [phone] Joni Agudelo MD [address] [place] [id number] Health Maintenance Due Date Last Done Comments [...] IRON 61 50 - 212 ug/dL [facility] UIBC 254 155 - 355 ug/dL [facility] TIBC 315 261 - 478 ug/dl [facility] % Saturation 19(L) 20 - 50 % [facility] 07/16/2025 2:07 PM CDT Narrative [facility] - 07/16/2025 3:02 PM CDT Release to patient->Immediate us Adelia Murphy BASKET GRADER, BICYCLE DESIGNER LAB SEND OUTS Final Result [facility] [place] [address], * CBC WITH AUTO DIFF [place] (07/16/2025 2:07 PM CDT) WBC 7.4 4.0 - 10.0 10*3/uL [facility] HGB 13.2 11.2 - 15.7 g/dL [facility] HCT 39.4 34.1 - 44.9 % [facility] PLT 348 163 - 369 10*3/uL [facility] MPV 9.9 9.4 - 12.4 fL [facility] RBC 4.32 3.93 - 5.22 10*6/uL [facility] MCV 91 79 - 95 fL [facility] MCH 30.6 25.6 - 32.2 pg [facility] MCHC 33.5 32.2 - 36.5 g/dL [facility] RDW 13.0 11.6 - 14.4 % [facility] Neutrophils % 64.1 36.0 - 66.0 % [facility] Lymphocytes % 28.4 19.0 - 40.0 % [facility] Monocytes % 6.2 4.1 - 12.1 % [facility] Eosinophils % 0.5 0.0 - 3.5 % [facility] Basophils % 0.5 0.0 - 1.0 % [facility] Absolute Neutrophils 4.8 1.4 - 6.6 10*3/uL [facility] Absolute Lymphocytes 2.1 0.8 - 4.0 10*3/uL [facility] Absolute Monocytes 0.5 0.2 - 1.2 10*3/uL [facility] Absolute Eosinophils 0.0 0.0 - 0.4 10*3/uL [facility] Absolute Basophils 0.0 0.0 - 0.1 10*3/uL [facility] 07/16/2025 2:07 PM CDT Adelia Murphy APRN, CNP LAB SEND OUTS Final Result [facility] [place] [address], [place] [phone] * FERRITIN (07/16/2025 2:07 PM CDT) Ferritin 77 11 - 307 ng/mL [facility] Blood 07/16/2025 2:07 PM CDT Narrative [facility] - 07/17/2025 2:43 PM CDT Release to patient->Immediate Adelia Murphy APRN, NAVEEN CHEMISTRY ORDERABLES Final Result Performing Organization Address [facility] Co de Phone Number [facility] [place] [address], [place] [phone] * (ABNORMAL) CMP (COMPREHENSIVE METABOLIC PANEL) (07/16/2025 2:07 PM CDT) Glucose 92 70 - 105 mg/dL [facility] Blood Urea Nitrogen 13 7 - 25 mg/dL [facility] Creatinine 0.8 0.6 - 1.2 mg/dL [facility] Sodium 138 136 - 145 mEq/L [facility] Potassium 4.1 3.5 - 5.1 mEq/L [facility] Chloride 101 98 - 107 mEq/L [facility] Bicarbonate 31 21 - 31 mEq/L [facility] Total Bilirubin 0.3 0.3 - 1.0 mg/dL [facility] Alk. Phosphatase 82 34 - 104 U/L [facility] Aspartate Aminotransferase 12(L) 13 - 39 U/L [facility] Alanine Aminotransferase 10 7 - 52 U/L [facility] Total Protein 6.6 6.4 - 8.9 g/dL [facility] Albumin 4.1 3.5 - 5.7 g/dL [facility] Calcium 9.1 8.6 - 10.3 mg/dL [facility] Anion Gap 10.1 7.0 - 15.0 mEq/L [facility] Globulin 2.5 2.0 - 3.5 g/dL [facility] EGFR 97 >60 ml/min/1. 73m2 [facility] Comment: This eGFR is calculated using 2020 CKD-EPI Creatinine equation without race modifier based on the NKF-ASN task force recommendations Equation: zEUA=860*min(SCr/k,1)a*max(SCr/k,1)-1.200*0.9938Age*1.012 (if female), where SCr is serum creatinine, k is 0.7 for females and 0.9 for males, and a is -0.241 for females and -0.302 for males Blood 07/16/2025 2:07 PM CDT Narrative [facility] - 07/16/2025 3:02 PM CDT Release to patient->Immediate IS THE PATIENT REQUIRED TO BE FASTING FOR 8 HOURS?->No Adelia Murphy APRN, BICYCLE DESIGNER CHEMISTRY ORDERABLES Final Result [facility] [place] [address], from Last 3 Months Insurance [facility] Care Teams Film Splicer Relationship Specialty Start Date End Date Cavazos Shukri [address] [place] [address] PCP - General Family Medicine 02/11/25 Joni Agudelo MD [address] [place] [address] Consulting Physician Oncology 02/11/25
--- OUTSIDE RECORDS SUMMARY | 2025-10-09 19:47 | XMS_ITS | Clinical Summary ---
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 [id number] [address] ANTHEM ACCESS Advance Directives For more information, please contact: [phone] * Full Code (Latest Code Status on File) Date Activated Date Inactivated Comments 01/06/2022 12:31 AM 01/07/2022 10:21 PM Care Teams Production Material Coordinator Relationship Specialty Start Date End Date Madonna Trent MD PCP - General Family Practice 01/24/23
--- OUTSIDE RECORDS SUMMARY | 2025-10-09 19:47 | XMS_ITS | Clinical Summary ---
Author Organization [facility] Address [facility] [place] [address] Care Team Providers Care Mobile Security Architect Name Role Phone Unavailable Primary Care Provider [...]
== END 2025-10-09 19:41 | disposition left against medical advice (07) ==
LOC: ANHED 19:45
PROVIDERS: Emergency Provider Physician Assistant; PCP Emergency Medicine
DX: J06.9 Acute upper respiratory infection, unspecified (principal); J45.909 Unspecified asthma, uncomplicated; Z20.822 Contact with and (suspected) exposure to COVID-19
CPT/HCPCS: 87637; 99283